=== PATIENT | female | born 1935 | race Caucasian/White ===

== ENCOUNTER 2018-04-22 13:44 | Inpatient (IN) | payer MEDICARE ==
[2018-04-22] MEDS ORDERED: IPRATROPIUM-ALBUTEROL 3 ML NEB INHALATION PRN (21:35)
[2018-04-22] MEDS ORDERED: ONDANSETRON 4 MG/2 ML VIAL IVP PRN (21:36)
[2018-04-22] MEDS ORDERED: HEPARIN SODIUM,PORCINE 5,000 UNIT/ML 1 ML VIAL IV PRN (21:40)
[2018-04-22] MEDS: HEPARIN SOD,PORK IN 0.45% NACL 25,000 UNIT in 0.45% NACL 1 250ML.BAG IV SCH (22:58)
[2018-04-22 23:22] LABS: Anisocytosis Slight; Basophils % (A) 0 %; Eosinophils # (A) 0.1 k/uL (0-0.7); Eosinophils % (A) 1 %; HCT 32.1 % (34.0-46.0); HGB 9.9 gm/dL (11.4-16.0); Hypochromasia Slight; Lymphocytes # (A) 0.6 k/uL (1.0-4.8); Lymphocytes % (A) 6 %; MCH 30.1 pg (25.0-35.0); MCHC 30.9 g/dL (31.0-37.0); MCV 97.1 fL (80.0-100.0); Macrocytosis Slight; Mean Platelet Volume 7.3; Monocytes # (A) 0.5 k/uL (0-1.0); Monocytes % (A) 6 %; Neutrophils # (A) 8.1 k/uL (1.3-7.7); Neutrophils % (A) 86 %; Platelet Count 103 k/uL (150-450); WBC 9.4 k/uL (3.8-10.6)
[2018-04-22 23:33] LABS: Calcium 7.9 mg/dL (8.4-10.2); Potassium 3.9 mmol/L (3.5-5.1)
[2018-04-23 06:06] LABS: Anisocytosis Slight; Basophils % (A) 0 %; Eosinophils # (A) 0.1 k/uL (0-0.7); Eosinophils % (A) 1 %; HCT 31.6 % (34.0-46.0); HGB 9.7 gm/dL (11.4-16.0); Hypochromasia Slight; Lymphocytes # (A) 0.5 k/uL (1.0-4.8); Lymphocytes % (A) 8 %; MCHC 30.7 g/dL (31.0-37.0); MCV 97.6 fL (80.0-100.0); Macrocytosis Slight; Mean Platelet Volume 7.2; Monocytes # (A) 0.4 k/uL (0-1.0); Monocytes % (A) 6 %; Neutrophils # (A) 5.9 k/uL (1.3-7.7); Neutrophils % (A) 84 %; Platelet Count 103 k/uL (150-450); RBC 3.23 m/uL (3.80-5.40); RDW 16.9 % (11.5-15.5)
[2018-04-23 06:27] LABS: Calcium 7.7 mg/dL (8.4-10.2)
--- NOTE | 2018-04-23 06:53 | XR ---
EXAMINATION TYPE: XR chest 2V DATE OF EXAM: 04/23/2018 HISTORY: chf. REFERENCE: NONE. FINDINGS: The lungs are clear. Pleural space are clear. The heart is not enlarged. IMPRESSION: NO ACUTE INTRATHORACIC ABNORMALITY.
[2018-04-23] MEDS: FAMOTIDINE 20 MG TAB PO SCH (10:24)
[2018-04-23] MEDS: predniSONE 10 MG TAB PO SCH (10:24)
[2018-04-23] MEDS: MONTELUKAST 10 MG TAB PO SCH (10:24)
[2018-04-23] MEDS: valACYclovir HCL 1,000 MG TABLET PO SCH ×2 (10:24→21:42)
[2018-04-23] MEDS: PANTOPRAZOLE 40 MG TABLET PO SCH (10:25)
[2018-04-23] MEDS: FUROSEMIDE 10 MG/ML 4 ML VIAL IV SCH ×2 (10:25→21:39)
[2018-04-23] MEDS: PROPRANOLOL 20 MG TAB PO SCH (10:25)
--- NOTE | 2018-04-23 12:53 | P.HPIM ---
History of Present Illness 82-year-old female came in with compensative shortness of breath denied any significant orthopnea proximal nocturnal dyspnea patient is a transfer from [facility] chest x-ray here is within normal limits but the chest x- ray did show bilateral pleural effusion pulmonary edema and syncopal dose of Lasix after which Patient had significant improvementiin pulmonary edema patient has minimally elevated troponin of 0.06 twotroponins are it's at the same level. Cardiology was consulted please refer to the documentation for furtherher patient denied any active chest pain. Patient is presently on IV Lasix and IV heparin . Patient does have history of non-Hodgkin's lymphoma for which she is receiving endotoxin I'll obtain echocardiogram. Review of Systems REVIEW OF SYSTEMS: CONSTITUTIONAL: No fever, no malaise, no fatigue. HEENT: No recent visual problems or hearing problems. Denied any sore throat. CARDIOVASCULAR: No chest pain, orthopnea, PND, no palpitations, no syncope. PULMONARY: no cough, no hemoptysis. GASTROINTESTINAL: No diarrhea, no nausea, no vomiting, no abdominal pain. NEUROLOGICAL: No headaches, no weakness, no numbness. HEMATOLOGICAL: Denies any bleeding or petechiae. GENITOURINARY: Denies any burning micturition, frequency, or urgency. MUSCULOSKELETAL/RHEUMATOLOGICAL: Denies any joint pain, swelling, or any muscle pain. ENDOCRINE: Denies any polyuria or polydipsia. The rest of the 14-point review of systems is negative. Past Medical History Past Medical History: Cancer, GERD/Reflux, Hyperlipidemia, Hypertension, Osteoarthritis (OA) Additional Past Medical History / Comment(s): non-hodgkins lymphoma, basal cell carcinoma L neck, gout, shingles, hiatal hernia, migraines,foreign body L eye, rotatr cuff tear, fx coccyx 1971, stress test 02-04-18 History of Any Multi-Drug Resistant Organisms: None Reported Past Surgical History: Appendectomy, Cholecystectomy, Hysterectomy, Tubal Ligation Additional Past Surgical History / Comment(s): EGD 2014 r/t food items being stuck. multiple eye surgical procedures for cataract and laser. tumor removal eye orbit. Past Anesthesia/Blood Transfusion Reactions: No Reported Reaction Past Psychological History: No Psychological Hx Reported Smoking Status: Never smoker Past Alcohol Use History: None Reported - Past Family History Father History Unknown: Yes Mother History Unknown: Yes Medications and Allergies Home Medications Medication Instructions Recorded Confirmed Type Allopurinol [Zyloprim] 300 mg PO HS 04/22/18 04/22/18 History Famotidine 10 mg PO DAILY 04/22/18 04/22/18 History Montelukast [Singulair] 10 mg PO DAILY 04/22/18 04/22/18 History Omeprazole 20 mg PO DAILY 04/22/18 04/22/18 History Propranolol [Inderal] 60 mg PO DAILY 04/22/18 04/22/18 History predniSONE 10 mg PO DAILY 04/22/18 04/22/18 History valACYclovir HCL [Valacyclovir] 1,000 mg PO Q12HR 04/22/18 04/22/18 History Allergies Allergy/AdvReac Type Severity Reaction Status Date / Time caffeine Allergy PVCS Verified 04/22/18 22:03 codeine Allergy Vomiting Verified 04/22/18 22:03 levofloxacin [From Levaquin] AdvReac Rash/Hives Verified 04/22/18 22:03 morphine AdvReac Vomiting Verified 04/22/18 22:03 tramadol [From Ultram] AdvReac Vomiting Verified 04/22/18 22:03 Physical Exam Vitals: Vital Signs Temp Pulse Resp BP Pulse Ox 04/23/18 11:24 16 04/23/18 08:00 98.3 F 64 16 166/76 94 L 04/23/18 04:00 97.4 F L 61 15 146/65 98 04/23/18 00:00 97.1 F L 63 17 142/63 97 04/22/18 20:00 98.2 F 65 18 147/73 98 Intake and Output 04/22/18 04/23/18 04/23/18 22:59 06:59 14:59 Intake Total 48.920 20 Balance 48.920 20 Intake: IV 10 20 Invasive Line 3 10 20 Intake, IV Titration 38.920 Amount Heparin Sod,Pork in 0.45% 38.920 NaCl 25,000 unit In 0.45 % NaCl 1 250ml.bag @ 12 UNITS/KG/HR 7.83 mls/hr IV .Q24H [facility] Rx#: [id number] Oral 0 Other: Voiding Method Toilet Toilet Incontinent Incontinent # Voids 1 1 Weight 65.317 kg 65.2 kg PHYSICAL EXAMINATION: GENERAL: The patient is alert and oriented x3, not in any acute distress. Well developed, well nourished. HEENT: Pupils are round and equally reacting to light. EOMI. No scleral icterus. No conjunctival pallor. Normocephalic, atraumatic. No pharyngeal erythema. No thyromegaly. CARDIOVASCULAR: S1 and S2 present. No murmurs, rubs, or gallops. PULMONARY: Chest is clear to auscultation, no wheezing or crackles. ABDOMEN: Soft, nontender, nondistended, normoactive bowel sounds. No palpable organomegaly. MUSCULOSKELETAL: No joint swelling or deformity. EXTREMITIES: No cyanosis, clubbing, or pedal edema. NEUROLOGICAL: Gross neurological examination did not reveal any focal deficits. SKIN: No rashes. Results CBC & Chem 7: 04/23/18 05:32 04/23/18 05:32 Labs: Abnormal Lab Results - Last 24 Hours (Table) 04/22/18 04/22/18 04/22/18 Range/Units 23:01 23:01 23:01 RBC 3.30 L (3.80-5.40) m/uL Hgb 9.9 L (11.4-16.0) gm/dL Hct 32.1 L (34.0-46.0) % MCHC 30.9 L (31.0-37.0) g/dL RDW 17.0 H (11.5-15.5) % Plt Count 103 L (150-450) k/uL Neutrophils # 8.1 H (1.3-7.7) k/uL Lymphocytes # 0.6 L (1.0-4.8) k/uL Chloride 109 H (98-107) mmol/L BUN 29 H (7-17) mg/dL Creatinine 1.13 H (0.52-1.04) mg/dL Glucose 107 H (74-99) mg/dL Calcium 7.9 L (8.4-10.2) mg/dL Troponin I 0.060 H* (0.000-0.034) ng/mL 04/23/18 04/23/18 04/23/18 Range/Units 05:32 05:32 05:32 RBC 3.23 L (3.80-5.40) m/uL Hgb 9.7 L (11.4-16.0) gm/dL Hct 31.6 L (34.0-46.0) % MCHC 30.7 L (31.0-37.0) g/dL RDW 16.9 H (11.5-15.5) % Plt Count 103 L (150-450) k/uL Neutrophils # (1.3-7.7) k/uL Lymphocytes # 0.5 L (1.0-4.8) k/uL Chloride 110 H (98-107) mmol/L BUN 26 H (7-17) mg/dL Creatinine (0.52-1.04) mg/dL Glucose (74-99) mg/dL Calcium 7.7 L (8.4-10.2) mg/dL Troponin I 0.051 H* (0.000-0.034) ng/mL 04/23/18 Range/Units 10:19 RBC (3.80-5.40) m/uL Hgb (11.4-16.0) gm/dL Hct (34.0-46.0) % MCHC (31.0-37.0) g/dL RDW (11.5-15.5) % Plt Count (150-450) k/uL Neutrophils # (1.3-7.7) k/uL Lymphocytes # (1.0-4.8) k/uL Chloride (98-107) mmol/L BUN (7-17) mg/dL Creatinine (0.52-1.04) mg/dL Glucose (74-99) mg/dL Calcium (8.4-10.2) mg/dL Troponin I 0.049 H* (0.000-0.034) ng/mL Thrombosis Risk Factor Assmnt - Choose All That Apply Any of the Below Risk Factors Present?: Yes Each Factor Represents 1 point: Swollen legs (current) Other Risk Factors: Yes Each Risk Factor Represents 3 Points: Age 75 years or older Other congenital or acquired thrombophilia - If yes, enter type in comment: No Thrombosis Risk Factor Assessment Total Risk Factor Score: 4 Thrombosis Risk Factor Assessment Level: Moderate Risk Assessment and Plan Plan: -shortness of breath: Possibly related to congestive heart failure ejection fraction is not available at this time patient does have improved shortness of breath pulmonary edema presently resolved because of the Lasix she received before she was transferred here. We'll obtain echocardiogram. 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
--- NOTE | 2018-04-23 13:51 | P.CRDCN ---
History of Present Illness Consult date: 04/23/18 Chief complaint: Shortness of breath History of present illness: This is a pleasant 82-year-old female patient who was transferred from [facility] into [facility] for further evaluation of shortness of breath. The patient does have a past medical history significant for non-Hodgkin lymphoma currently receiving chemotherapy. The non-Hodgkin lymphoma is a recurrence. She was in her usual state of health until yesterday when she woke up complaining of shortness of breath. The patient herself does not recall having any chest pain or chest discomfort, but according to the chart from [facility] the patient did have symptoms of chest discomfort in the emergency room at [facility]. Currently she is chest pain-free. No feeling of heart racing or fluttering, no dizziness or lightheadedness, and no syncope. The patient is not aware of any prior history of coronary artery disease. No diabetes, hypertension, and no dyslipidemia. The EKG from [facility] revealed sinus rhythm. The chest x-ray did not show any acute abnormalities at this point. The patient does have chronic anemia but her hemoglobin is stable. She was admitted to the hospital and was started on heparin IV. Also she was started on Lasix IV for possible CHF. She is feeling overall better. Past Medical History Past Medical History: Cancer, GERD/Reflux, Hyperlipidemia, Hypertension, Osteoarthritis (OA) Additional Past Medical History / Comment(s): non-hodgkins lymphoma, basal cell carcinoma L neck, gout, shingles, hiatal hernia, migraines,foreign body L eye, rotatr cuff tear, fx coccyx 1971, stress test 02-04-18 History of Any Multi-Drug Resistant Organisms: None Reported Past Surgical History: Appendectomy, Cholecystectomy, Hysterectomy, Tubal Ligation Additional Past Surgical History / Comment(s): EGD 2014 r/t food items being stuck. multiple eye surgical procedures for cataract and laser. tumor removal eye orbit. Past Anesthesia/Blood Transfusion Reactions: No Reported Reaction Past Psychological History: No Psychological Hx Reported Smoking Status: Never smoker Past Alcohol Use History: None Reported - Past Family History Father History Unknown: Yes Mother History Unknown: Yes Medications and Allergies Home Medications Medication Instructions Recorded Confirmed Type Allopurinol [Zyloprim] 300 mg PO HS 04/22/18 04/22/18 History Famotidine 10 mg PO DAILY 04/22/18 04/22/18 History Montelukast [Singulair] 10 mg PO DAILY 04/22/18 04/22/18 History Omeprazole 20 mg PO DAILY 04/22/18 04/22/18 History Propranolol [Inderal] 60 mg PO DAILY 04/22/18 04/22/18 History predniSONE 10 mg PO DAILY 04/22/18 04/22/18 History valACYclovir HCL [Valacyclovir] 1,000 mg PO Q12HR 04/22/18 04/22/18 History Allergies Allergy/AdvReac Type Severity Reaction Status Date / Time caffeine Allergy PVCS Verified 04/22/18 22:03 codeine Allergy Vomiting Verified 04/22/18 22:03 levofloxacin [From Levaquin] AdvReac Rash/Hives Verified 04/22/18 22:03 morphine AdvReac Vomiting Verified 04/22/18 22:03 tramadol [From Ultram] AdvReac Vomiting Verified 04/22/18 22:03 Physical Exam Vitals: Vital Signs Temp Pulse Resp BP Pulse Ox 04/23/18 12:00 63 16 145/75 100 04/23/18 11:24 16 04/23/18 08:00 98.3 F 64 16 166/76 94 L 04/23/18 04:00 97.4 F L 61 15 146/65 98 04/23/18 00:00 97.1 F L 63 17 142/63 97 04/22/18 20:00 98.2 F 65 18 147/73 98 Intake and Output 04/22/18 04/23/18 04/23/18 22:59 06:59 14:59 Intake Total 48.920 302.165 Balance 48.920 302.165 Intake: IV 10 20 Invasive Line 3 10 20 Intake, IV Titration 38.920 52.165 Amount Heparin Sod,Pork in 0.45% 38.920 52.165 NaCl 25,000 unit In 0.45 % NaCl 1 250ml.bag @ 12 UNITS/KG/HR 7.83 mls/hr IV .Q24H [facility] Rx#: [id number] Oral 230 Other: Voiding Method Toilet Toilet Incontinent Incontinent # Voids 1 1 Weight 65.317 kg 65.2 kg - Constitutional General appearance: no acute distress - Respiratory Respiratory: bilateral: CTA - Cardiovascular Rhythm: regular Heart sounds: normal: S1, S2 Results 04/23/18 05:32 04/23/18 05:32 Cardiac Enzymes 04/22/18 04/23/18 04/23/18 Range/Units 23:01 05:32 10:19 Troponin I 0.060 H* 0.051 H* 0.049 H* (0.000-0.034) ng/mL Coagulation 04/22/18 04/23/18 04/23/18 Range/Units 23:01 05:32 13:05 APTT 27.9 29.9 93.6 H (22.0-30.0) sec CBC 04/22/18 04/23/18 Range/Units 23:01 05:32 WBC 9.4 7.0 (3.8-10.6) k/uL RBC 3.30 L 3.23 L (3.80-5.40) m/uL Hgb 9.9 L 9.7 L (11.4-16.0) gm/dL Hct 32.1 L 31.6 L (34.0-46.0) % Plt Count 103 L 103 L (150-450) k/uL Comprehensive Metabolic Panel 04/22/18 04/23/18 Range/Units 23:01 05:32 Sodium 137 139 (137-145) mmol/L Potassium 3.9 4.0 (3.5-5.1) mmol/L Chloride 109 H 110 H (98-107) mmol/L Carbon Dioxide 23 23 (22-30) mmol/L BUN 29 H 26 H (7-17) mg/dL Creatinine 1.13 H 1.04 (0.52-1.04) mg/dL Glucose 107 H 97 (74-99) mg/dL Calcium 7.9 L 7.7 L (8.4-10.2) mg/dL Current Medications Generic Name Dose Route Start Last Admin Trade Name Freq PRN Reason Stop Dose Admin Albuterol/Ipratropium 3 ml 04/22/18 21:35 Duoneb 0.5 Mg-3 Mg/3 Ml Soln INHALATION RT-Q6H PRN Shortness Of Breath Allopurinol 300 mg 04/23/18 21:00 Zyloprim PO HS [facility]IL[facility] Famotidine 10 mg 04/23/18 09:00 04/23/18 10:24 Pepcid PO 10 mg DAILY [facility] Administration Furosemide 40 mg 04/23/18 09:00 04/23/18 10:25 Lasix IV 40 mg Q12HR [facility] Administration Heparin Sodium (Porcine) 0 unit 04/22/18 21:40 04/23/18 06:53 Heparin IV 4,000 unit PER PROTOCOL PRN Administration Low PTT Protocol Heparin Sodium/Sodium Chloride 250 mls @ 7.83 mls/hr 04/22/18 21:45 04/23/18 13:41 25,000 unit/ Sodium Chloride IV 9.45 units/kg/hr .Q24H EDIL[facility] 6.17 mls/hr Titration Protocol 12 UNITS/KG/HR Montelukast Sodium 10 mg 04/23/18 09:00 04/23/18 10:24 Singulair PO 10 mg DAILY [facility] Administration Ondansetron HCl 4 mg 04/22/18 21:36 Zofran IVP Q8HR PRN Nausea And Vomiting Pantoprazole Sodium 40 mg 04/23/18 09:00 04/23/18 10:25 Protonix PO 40 mg DAILY EDILIA Administration Prednisone 10 mg 04/23/18 09:00 04/23/18 10:24 PO 10 mg DAILY ED[facility] Administration Propranolol HCl 60 mg 04/23/18 09:00 04/23/18 10:25 Inderal PO 60 mg DAILY ED[facility] Administration Valacyclovir HCl 1,000 mg 04/23/18 09:00 04/23/18 10:24 Valtrex PO 1,000 mg Q12HR [facility] Administration Intake and Output 04/22/18 04/23/18 04/23/18 22:59 06:59 14:59 Intake Total 48.920 302.165 Balance 48.920 302.165 Intake: IV 10 20 Invasive Line 3 10 20 Intake, IV Titration 38.920 52.165 Amount Heparin Sod,Pork in 0.45% 38.920 52.165 NaCl 25,000 unit In 0.45 % NaCl 1 250ml.bag @ 12 UNITS/KG/HR 7.83 mls/hr IV .Q24H [facility] Rx#: [id number] Oral 230 Other: Voiding Method Toilet Toilet Incontinent Incontinent # Voids 1 1 Weight 65.317 kg 65.2 kg 04/23/18 05:32 04/23/18 05:32 Assessment and Plan Assessment: Assessment #1 shortness of breath. #2 congestive heart failure exacerbation of unknown etiology #3 mildly abnormal cardiac enzymes #4 history of non-Hodgkin lymphoma Plan #1 the patient currently is on Lasix IV. #2 continue monitor the kidney function and electrolytes #3 severe underlying coronary artery disease to be ruled out. #4 continue heparin IV at this point #5 add aspirin to the current medical regimen #6 obtain an echocardiogram was Doppler #7 follow-up with the patient. Thank you for allowing us participate in her care
[2018-04-23] MEDS: ALLOPURINOL 300 MG TAB PO SCH (21:39)
[2018-04-23] MEDS: HEPARIN SOD,PORK IN 0.45% NACL 25,000 UNIT in 0.45% NACL 1 250ML.BAG IV SCH (23:08)
[2018-04-24 06:45] LABS: Potassium 3.6 mmol/L (3.5-5.1)
[2018-04-24] MEDS ORDERED: valACYclovir 500 MG TAB PO SCH (09:00)
[2018-04-24] MEDS: PANTOPRAZOLE 40 MG TABLET PO SCH (09:02)
[2018-04-24] MEDS: MONTELUKAST 10 MG TAB PO SCH (09:02)
[2018-04-24] MEDS: predniSONE 10 MG TAB PO SCH (09:02)
[2018-04-24] MEDS: FUROSEMIDE 10 MG/ML 4 ML VIAL IV SCH ×2 (09:02→20:04)
[2018-04-24] MEDS: ASPIRIN 81 MG PO SCH (09:02)
[2018-04-24] MEDS: FAMOTIDINE 20 MG TAB PO SCH (09:05)
[2018-04-24] MEDS: PROPRANOLOL 20 MG TAB PO SCH (09:12)
--- NOTE | 2018-04-24 09:26 | P.PN ---
Subjective Progress Note Date: 04/24/18 Principal diagnosis: Non-ST elevation IA This is a pleasant 82-year-old female patient who was transferred from [facility] into [facility] for further evaluation of shortness of breath. The patient does have a past medical history significant for non-Hodgkin lymphoma currently receiving chemotherapy. The non-Hodgkin lymphoma is a recurrence. She was in her usual state of health until yesterday when she woke up complaining of shortness of breath. The patient herself does not recall having any chest pain or chest discomfort, but according to the chart from [facility] the patient did have symptoms of chest discomfort in the emergency room at [facility]. Currently she is chest pain-free. No feeling of heart racing or fluttering, no dizziness or lightheadedness, and no syncope. The patient is not aware of any prior history of coronary artery disease. No diabetes, hypertension, and no dyslipidemia. The EKG from [facility] revealed sinus rhythm. The chest x-ray did not show any acute abnormalities at this point. The patient does have chronic anemia but her hemoglobin is stable. She was admitted to the hospital and was started on heparin IV. Also she was started on Lasix IV for possible CHF. She is feeling overall better. On follow-up with the patient today, 04/24/2018, she continues denying any chest pain or chest discomfort and she stated that the shortness of breath has improved. An echo was performed and will follow-up with that. She continues to be on aspirin as well as heparin. I discussed with her the option between conservative approach versus invasive approach. She would like to wait until tomorrow till her son would be around. Objective - Vital Signs Vital signs: Vital Signs Temp 98 F 04/24/18 08:00 Pulse 60 04/24/18 08:00 Resp 22 04/24/18 08:00 BP 126/73 04/24/18 08:00 Pulse Ox 98 04/24/18 08:00 Intake & Output 04/23/18 04/24/18 04/24/18 18:59 06:59 18:59 Intake Total 512.165 134.891 240 Output Total 1000 Balance 512.165 -865.109 240 Weight 58.1 kg Intake: IV 30 30 Invasive Line 3 30 30 Intake, IV Titration 52.165 104.891 Amount Heparin Sod,Pork in 0.45% 52.165 104.891 NaCl 25,000 unit In 0.45 % NaCl 1 250ml.bag @ 12 UNITS/KG/HR 7.83 mls/hr IV .Q24H [facility] Rx#: [id number] Oral 430 240 Output: Urine 1000 Other: Voiding Method Toilet Toilet Incontinent Incontinent # Voids 4 - Constitutional General appearance: Present: no acute distress - Respiratory Respiratory: bilateral: CTA - Cardiovascular Rhythm: regular Heart sounds: normal: S1, S2 Abnormal Heart Sounds: Present: systolic murmur - Labs CBC & Chem 7: 04/23/18 05:32 04/24/18 05:36 Labs: Abnormal Lab Results - Last 24 Hours (Table) 04/23/18 04/23/18 04/23/18 Range/Units 10:19 13:05 17:24 APTT 93.6 H (22.0-30.0) sec BUN (7-17) mg/dL Creatinine (0.52-1.04) mg/dL Calcium (8.4-10.2) mg/dL Troponin I 0.049 H* 0.042 H* (0.000-0.034) ng/mL 04/23/18 04/24/18 04/24/18 Range/Units 21:27 05:36 05:36 APTT 47.5 H 40.7 H (22.0-30.0) sec BUN 27 H (7-17) mg/dL Creatinine 1.20 H (0.52-1.04) mg/dL Calcium 8.0 L (8.4-10.2) mg/dL Troponin I (0.000-0.034) ng/mL Assessment and Plan Assessment: Assessment #1 shortness of breath. #2 congestive heart failure exacerbation of unknown etiology #3 mildly abnormal cardiac enzymes #4 history of non-Hodgkin lymphoma Plan #1 continue the current medical regimen #2 continue the aspirin as well as heparin #3 hold metoprolol in view of the bradycardia #4 follow-up on the echocardiogram #5 discussed with the son tomorrow the option between conservative versus invasive approach. Thank you for allowing us participate in her care
--- NOTE | 2018-04-24 10:13 | ECHOF ---
Referral Reason:CHF MEASUREMENTS -------- HEIGHT: 162.6 cm WEIGHT: 58.1 kg BP: 155/85 RVIDd: 2.8 cm (< 3.3) IVSd: 1.0 cm (0.6 - 1.1) LVIDd: 4.4 cm (3.9 - 5.3) LVPWd: 0.9 cm (0.6 - 1.1) IVSs: 1.2 cm LVIDs: 2.8 cm LVPWs: 1.2 cm LA Diam: 3.4 cm (2.7 - 3.8) LAESV Index (A-L): 33.96 ml/m Ao Diam: 3.2 cm (2.0 - 3.7) AV Cusp: 2.4 cm (1.5 - 2.6) MV EXCURSION: 15.510 mm (> 18.000) MV EF SLOPE: 76 mm/s (70 - 150) EPSS: 0.3 cm MV E Osorio: 1.06 m/s MV DecT: 162 ms MV A Osorio: 0.41 m/s MV E/A Ratio: 2.59 AR PHT: 555 ms RAP: 5.00 mmHg RVSP: 47.46 mmHg FINDINGS -------- Sinus rhythm. This was a technically good study. The left ventricular size is normal. Left ventricular wall thickness is normal. Overall left vent ricular systolic function is normal with, an EF between 60 - 65 %. The right ventricle is normal in size. LA is moderately dilated 34-39 ml/m2 The right atrium is normal in size. There is mild aortic valve sclerosis. There is moderate aortic regurgitation. The mitral valve leaflets are mildly thickened. Moderate mitral annular calcification present. Mo derate mitral regurgitation is present. Moderate to severe tricuspid regurgitation present. There is moderate pulmonary hypertension. The right ventricular systolic pressure, as measured by Doppler, is 47.46mmHg. Moderate pulmonic regurgitation. The aortic root size is normal. Normal inferior vena cava with normal inspiratory collapse consistent with estimated right atrial pre ssure of 5 mmHg. There is no pericardial effusion. CONCLUSIONS -------- 1. Sinus rhythm. 2. This was a technically good study. 3. The left ventricular size is normal. 4. Left ventricular wall thickness is normal. 5. Overall left ventricular systolic function is normal with, an EF between 60 - 65 %. 6. The right ventricle is normal in size. 7. LA is moderately dilated 34-39 ml/m2 8. The right atrium is normal in size. 9. There is mild aortic valve sclerosis. 10. There is moderate aortic regurgitation. 11. The mitral valve leaflets are mildly thickened. 12. Moderate mitral annular calcification present. 13. Moderate mitral regurgitation is present. 14. Moderate to severe tricuspid regurgitation present. 15. There is moderate pulmonary hypertension. 16. The right ventricular systolic pressure, as measured by Doppler, is 47.46mmHg. 17. Moderate pulmonic regurgitation. 18. The aortic root size is normal. 19. Normal inferior vena cava with normal inspiratory collapse consistent with estimated right atrial pressure of 5 mmHg. 20. There is no pericardial effusion. VIRTUALIZATION ENGINEER: Clara Castanon RDCS
[2018-04-24] MEDS ORDERED: BISACODYL 5 MG TABLET.DR PO STA (11:56)
--- NOTE | 2018-04-24 12:18 | P.PN ---
Subjective 82-year-old female admitted for new-onset heart failure, pulmonary edema improved pedal edema improved. Patient creatinine has worsened a bit because of which I'm switching her to oral Lasix starting tomorrow morning. Patient does have mildly elevated troponins although there is no chest pain dyspnea because of this new onset congestive heart failure, cardiology wants to leave her on IV heparin possibility of a stress test or cardiac catheterization tomorrow after that probably patient can be discharged. Constitutional: Denied any fatigue denied any fever. Cardio vascular: denied any chest pain, palpitations Gastrointestinal denied any nausea vomiting Pulmonary: Denied any shortness of breath cough Neurologic denied any new focal deficits All inpatient medications were reviewed and appropriate changes in these medications as dictated in the interval history and assessment and plan. Objective - Vital Signs Vital signs: Vital Signs Temp 97.6 F 04/24/18 11:46 Pulse 55 L 04/24/18 11:46 Resp 20 04/24/18 11:46 BP 129/63 04/24/18 11:46 Pulse Ox 98 04/24/18 11:46 Intake & Output 04/23/18 04/24/18 04/24/18 18:59 06:59 18:59 Intake Total 512.165 134.891 240 Output Total 1000 Balance 512.165 -865.109 240 Weight 58.1 kg Intake: IV 30 30 Invasive Line 3 30 30 Intake, IV Titration 52.165 104.891 Amount Heparin Sod,Pork in 0.45% 52.165 104.891 NaCl 25,000 unit In 0.45 % NaCl 1 250ml.bag @ 12 UNITS/KG/HR 7.83 mls/hr IV .Q24H [facility] Rx#: [id number] Oral 430 240 Output: Urine 1000 Other: Voiding Method Toilet Toilet Toilet Incontinent Incontinent Incontinent # Voids 4 - Exam PHYSICAL EXAMINATION: GENERAL: The patient is alert and oriented x3, not in any acute distress. Well developed, well nourished. HEENT: Pupils are round and equally reacting to light. EOMI. No scleral icterus. No conjunctival pallor. Normocephalic, atraumatic. No pharyngeal erythema. No thyromegaly. CARDIOVASCULAR: S1 and S2 present. No murmurs, rubs, or gallops. PULMONARY: Chest is clear to auscultation, no wheezing or crackles. ABDOMEN: Soft, nontender, nondistended, normoactive bowel sounds. No palpable organomegaly. MUSCULOSKELETAL: No joint swelling or deformity. EXTREMITIES: No cyanosis, clubbing, or pedal edema. NEUROLOGICAL: Gross neurological examination did not reveal any focal deficits. SKIN: No rashes. - Labs CBC & Chem 7: 04/23/18 05:32 04/24/18 05:36 Labs: Abnormal Lab Results - Last 24 Hours (Table) 04/23/18 04/23/18 04/23/18 Range/Units 13:05 17:24 21:27 APTT 93.6 H 47.5 H (22.0-30.0) sec BUN (7-17) mg/dL Creatinine (0.52-1.04) mg/dL Calcium (8.4-10.2) mg/dL Troponin I 0.042 H* (0.000-0.034) ng/mL 04/24/18 04/24/18 Range/Units 05:36 05:36 APTT 40.7 H (22.0-30.0) sec BUN 27 H (7-17) mg/dL Creatinine 1.20 H (0.52-1.04) mg/dL Calcium 8.0 L (8.4-10.2) mg/dL Troponin I (0.000-0.034) ng/mL Assessment and Plan Plan: -shortness of breath: Possibly related to congestive heart failure chronic diastolic dysfunction with acute exacerbation patient see if his 60-65% presently not in heart failure exacerbation because of worsening creatinine patient was switched to oral Lasix starting tomorrow. -elevated troponins: Non-ST elevation myocardial infarction cannot be ruled out patient will be continued on heparin, further management as mentioned above -Acute renal failure related ischemia mild secondary to Lasix -non-Hodgkin's lymphoma: Patient is on Rituxan as an outpatient patient is presently on prednisone which will be continued -gastroesophageal reflux disease -Hypertension -Hyperlipidemia
[2018-04-24 14:22] VITALS: BMI 21.9
[2018-04-24] MEDS: ALLOPURINOL 300 MG TAB PO SCH (20:16)
[2018-04-24] MEDS: HEPARIN SOD,PORK IN 0.45% NACL 25,000 UNIT in 0.45% NACL 1 250ML.BAG IV SCH (22:23)
[2018-04-25 06:04] LABS: Calcium 7.9 mg/dL (8.4-10.2); Potassium 3.7 mmol/L (3.5-5.1)
--- NOTE | 2018-04-25 08:15 | P.PN ---
Subjective Progress Note Date: 04/25/18 Principal diagnosis: Non-ST elevation NE This is a pleasant 82-year-old female patient who was transferred from [facility] into [facility] for further evaluation of shortness of breath. The patient does have a past medical history significant for non-Hodgkin lymphoma currently receiving chemotherapy. The non-Hodgkin lymphoma is a recurrence. She was in her usual state of health until yesterday when she woke up complaining of shortness of breath. The patient herself does not recall having any chest pain or chest discomfort, but according to the chart from [facility] the patient did have symptoms of chest discomfort in the emergency room at [facility]. Currently she is chest pain-free. No feeling of heart racing or fluttering, no dizziness or lightheadedness, and no syncope. The patient is not aware of any prior history of coronary artery disease. No diabetes, hypertension, and no dyslipidemia. The EKG from [facility] revealed sinus rhythm. The chest x-ray did not show any acute abnormalities at this point. The patient does have chronic anemia but her hemoglobin is stable. She was admitted to the hospital and was started on heparin IV. Also she was started on Lasix IV for possible CHF. She is feeling overall better. On follow-up with the patient today, 04/25/2018, she continues denying any chest pain or chest discomfort and she stated that the shortness of breath has improved. The echocardiogram revealed normal LV function was moderate MR, moderate TR, moderate pulmonary hypertension. I will DC the heparin. Continue aspirin. Start the patient on metoprolol with a small dose and also start the patient on statin. Objective - Vital Signs Vital signs: Vital Signs Temp 97.4 F L 04/25/18 00:00 Pulse 77 04/25/18 00:00 Resp 20 04/25/18 04:00 BP 154/73 04/25/18 00:00 Pulse Ox 98 04/25/18 00:00 Intake & Output 04/24/18 04/25/18 04/25/18 18:59 06:59 18:59 Intake Total 720 657.288 Balance 720 657.288 Weight 58.1 kg 58 kg Intake: Intake, IV Titration 177.288 Amount Heparin Sod,Pork in 0.45% 177.288 NaCl 25,000 unit In 0.45 % NaCl 1 250ml.bag @ 12 UNITS/KG/HR 7.83 mls/hr IV .Q24H [facility] Rx#: [id number] Oral 720 480 Other: Voiding Method Toilet Toilet Incontinent # Voids 3 3 # Bowel Movements 1 - Constitutional General appearance: Present: no acute distress - Respiratory Respiratory: bilateral: CTA - Cardiovascular Rhythm: regular Heart sounds: normal: S1, S2 - Labs CBC & Chem 7: 04/23/18 05:32 04/25/18 05:06 Labs: Abnormal Lab Results - Last 24 Hours (Table) 04/25/18 04/25/18 Range/Units 05:06 05:06 APTT 50.5 H (22.0-30.0) sec Chloride 108 H (98-107) mmol/L BUN 29 H (7-17) mg/dL Creatinine 1.08 H (0.52-1.04) mg/dL Calcium 7.9 L (8.4-10.2) mg/dL Assessment and Plan Assessment: Assessment #1 shortness of breath. #2 congestive heart failure exacerbation of unknown etiology #3 mildly abnormal cardiac enzymes #4 history of non-Hodgkin lymphoma Plan #1 continue the current medical regimen #2 continue the aspirin as well as heparin #3 DC heparin #4 start small dose of metoprolol #5 start statin Thank you for allowing us participate in her care
[2018-04-25 08:24] VITALS: TEMP 98.8
[2018-04-25] MEDS: predniSONE 10 MG TAB PO SCH (08:42)
[2018-04-25] MEDS: ASPIRIN 81 MG PO SCH (08:42)
[2018-04-25] MEDS: PANTOPRAZOLE 40 MG TABLET PO SCH (08:42)
[2018-04-25] MEDS: FAMOTIDINE 20 MG TAB PO SCH (08:42)
[2018-04-25] MEDS: MONTELUKAST 10 MG TAB PO SCH (08:42)
[2018-04-25] MEDS ORDERED: FUROSEMIDE 40 MG TAB PO SCH (09:00)
[2018-04-25] MEDS ORDERED: METOPROLOL TARTRATE 12.5 MG TAB PO SCH (09:00)
[2018-04-25 12:00] VITALS: BP 132/75; PULSE 77; RESP 16
--- NOTE | 2018-04-25 19:16 | P.DS ---
Providers Date of admission: 04/22/18 16:19 Attending physician: Patria Young Consults: 04/22/18 22:00 Consult Physician Routine Consulting Provider: Alvin Yoder Consult Reason/Comments: elevated trop Do you want consulting provider notified?: Yes Primary care physician: Stated None Hospital Course: 82-year-old female admitted for new-onset heart failure, pulmonary edema improved pedal edema improved. Patient creatinine has worsened a bit because of which I'm switching her to oral Lasix starting tomorrow morning. Patient does have mildly elevated troponins although there is no chest pain dyspnea because of this new onset congestive heart failure, cardiology wants to leave her on IV heparin possibility of a stress test or cardiac catheterization tomorrow after that probably patient can be discharged. 04/25/2018 Patient appears to have chronic diastolic dysfunction with acute exacerbation. Patient will alert her troponins are secondary to heart failure patient will undergo further evaluation as an outpatient for coronary artery disease. Patient will be discharged today PHYSICAL EXAMINATION: GENERAL: The patient is alert and oriented x3, not in any acute distress. Well developed, well nourished. HEENT: Pupils are round and equally reacting to light. EOMI. No scleral icterus. No conjunctival pallor. Normocephalic, atraumatic. No pharyngeal erythema. No thyromegaly. CARDIOVASCULAR: S1 and S2 present. No murmurs, rubs, or gallops. PULMONARY: Chest is clear to auscultation, no wheezing or crackles. ABDOMEN: Soft, nontender, nondistended, normoactive bowel sounds. No palpable organomegaly. MUSCULOSKELETAL: No joint swelling or deformity. EXTREMITIES: No cyanosis, clubbing, or pedal edema. NEUROLOGICAL: Gross neurological examination did not reveal any focal deficits. SKIN: No rashes. Assessment and Plan Plan: -shortness of breath: Possibly related to congestive heart failure chronic diastolic dysfunction with acute exacerbation patient see if his 60-65% presently not in heart failure exacerbation -elevated troponins: Probably secondary to heart failure rather than acute microinfarction -Acute renal failure related ischemia mild secondary to Lasix -non-Hodgkin's lymphoma: Patient is on Rituxan as an outpatient patient is presently on prednisone which will be continued -gastroesophageal reflux disease -Hypertension -Hyperlipidemia Patient Condition at Discharge: Stable Plan - Discharge Summary Discharge Rx Participant: No New Discharge Prescriptions: New Aspirin 81 mg PO DAILY #30 chew Atorvastatin [Lipitor] 40 mg PO HS #30 tab Furosemide [Lasix] 40 mg PO DAILY #30 tab Metoprolol Tartrate [Lopressor] 12.5 mg PO BID #60 tab No Action Omeprazole 20 mg PO DAILY valACYclovir HCL [Valacyclovir] 1,000 mg PO Q12HR Montelukast [Singulair] 10 mg PO DAILY Allopurinol [Zyloprim] 300 mg PO HS predniSONE 10 mg PO DAILY Famotidine 10 mg PO DAILY Discharge Medication List Allopurinol [Zyloprim] 300 mg PO HS 04/22/18 [History] Famotidine 10 mg PO DAILY 04/22/18 [History] Montelukast [Singulair] 10 mg PO DAILY 04/22/18 [History] Omeprazole 20 mg PO DAILY 04/22/18 [History] predniSONE 10 mg PO DAILY 04/22/18 [History] valACYclovir HCL [Valacyclovir] 1,000 mg PO Q12HR 04/22/18 [History] Aspirin 81 mg PO DAILY #30 chew 04/25/18 [Rx] Atorvastatin [Lipitor] 40 mg PO HS #30 tab 04/25/18 [Rx] Furosemide [Lasix] 40 mg PO DAILY #30 tab 04/25/18 [Rx] Metoprolol Tartrate [Lopressor] 12.5 mg PO BID #60 tab 04/25/18 [Rx] Follow up Appointment(s)/Referral(s): Alvin Yoder MD [STAFF PHYSICIAN] - 05/04/18 4:30 pm () [facility], [NON-STAFF] - Moise Dill MD [REFERRING] - 05/02/18 11:00 am (Tuesday ) Patient Instructions/Handouts: Heart Failure (DC) Discharge Disposition: HOME WITH HOME HEALTH SERVICES
[2018-04-25] MEDS ORDERED: ATORVASTATIN 40 MG TAB PO SCH (21:00)
--- NOTE | 2018-04-26 14:31 | CDI ---
Documentation Clarification Form Date: 04/26/18 From: Desi Ottoniel Nohelia Brennan, [employer] Hours-8:30 am & 5 pm M-F Admit Date: 04/22/2018 4:19:00 PM Patient Name: Lila Green Visit Number: [id number] Discharge Date: 04/25/2018 3:45:00 PM ATTENTION: The Clinical Documentation Specialists (CDI) and [facility] Coding Staff appreciate your assistance in clarifying documentation. Please respond to the clarification below the line at the bottom and electronically sign. The CDI & [facility] Coding staff will review the response and follow-up if needed. Please note: Queries are made part of the Legal Health Record. If you have any questions, please contact the author of this message via ITS. Dr. Jose A Hoffman Myocardial infarction/ microinfarction is documented in the: H&P, Consult, PNs, DS. Patient History/Risk Factors: HTN, AC on Chr Diastolic CHF, MR w TR regu, Pulm HTN Troponin: 0.060, 0.051, 0.049, 0.042 [facility] EKG Results: sinus rhythm Treatment: IV Heparin, IV Lasix Consult: Cardiology In order to capture the severity of condition and necessary documentation specificity, please clarify: Type of Infarction: NSTEMI Ruled In NSTEMI Ruled Out Unable to determine Other Condition, please specify Already dictated in my note, no NSTEMI MTDD
== END 2018-04-25 15:45 | disposition home health service (06) | DRG 292 ==
LOC: EC 13:44 → 3SCARD 16:19
PROVIDERS: ADMIT Hospitalist; ATTEND Hospitalist
DX: I11.0 Hypertensive heart disease with heart failure (principal); C85.90 Non-Hodgkin lymphoma, unspecified, unspecified site; N17.9 Acute kidney failure, unspecified; I50.33 Acute on chronic diastolic (congestive) heart failure; I27.20 Pulmonary hypertension, unspecified; I08.1 Rheumatic disorders of both mitral and tricuspid valves; D64.9 Anemia, unspecified; K21.9 Gastro-esophageal reflux disease without esophagitis; E78.5 Hyperlipidemia, unspecified; M10.9 Gout, unspecified; K44.9 Diaphragmatic hernia without obstruction or gangrene; G43.909 Migraine, unspecified, not intractable, without status migrainosus; I25.10 Atherosclerotic heart disease of native coronary artery without angina pectoris; R32 Unspecified urinary incontinence; M19.90 Unspecified osteoarthritis, unspecified site; T50.1X5A Adverse effect of loop [high-ceiling] diuretics, initial encounter; Z79.899 Other long term (current) drug therapy; Z79.52 Long term (current) use of systemic steroids; Z90.49 Acquired absence of other specified parts of digestive tract; Z90.710 Acquired absence of both cervix and uterus; Z92.21 Personal history of antineoplastic chemotherapy; Z85.828 Personal history of other malignant neoplasm of skin; Z86.19 Personal history of other infectious and parasitic diseases; Z87.81 Personal history of (healed) traumatic fracture; Z98.51 Tubal ligation status; Z98.49 Cataract extraction status, unspecified eye; Z88.1 Allergy status to other antibiotic agents; Z88.5 Allergy status to narcotic agent; Z91.02 Food additives allergy status
CPT/HCPCS: 71046; 80048; 84484; 85025; 85730; 93306; 99285

== ENCOUNTER → 2018-11-18 | Outpatient (CLI) | payer MEDICARE ==
--- NOTE | 2018-11-20 10:57 | PE ---
EXAMINATION TYPE: PET CT fusion skull to thigh DATE OF EXAM: 11/18/2018 COMPARISON: None Prior PET/CT: None HISTORY: Lymphoma of eye and stomach TECHNIQUE: Following the intravenous administration of 11.222 mCi of F-18 FDG, whole body images are performed from the skull base to the midthigh. Images are reviewed on the computer in the coronal, axial, and sagittal planes. Reconstructed rotating images are created on independent workstation and reviewed on the computer. A localization and attenuation correction CT is performed in conjunction with the PET scan. DLP: 270.55 mGycm SCAN: Reported is subsequent, images are unavailable for comparison. Blood glucose: 101 mg/dL Average Mediastinum SUV: Average Liver SUV: FINDINGS: Head: There is some focal radiotracer accumulation within the posterior left orbit with an SUV value of 2.7. PET image 26. Additional uptake is present bilaterally slightly more inferior measuring 4.5 o n the left than the medial rectus muscle region and on the right within the mid optic nerve region wi th an SUV value of 4.7. This could correlate with the patient's reported lymphoma the eye. NECK: There is a focus of radiotracer accumulation in the left supraclavicular region with an SUV va lue of 5.7. PET image 68. An additional focus of radiotracer accumulation is in the left supraclavicu lar region below the thoracic inlet with an SUV value of 8.11. PET image 75. There is a superior medi astinal focus of radiotracer accumulation at the level of the great vessels with an SUV value of 5.07 , PET image 81. THORAX: There is a focus of radiotracer accumulation within the left suprahilar region at the level o f the aortopulmonic window with an SUV value of 4.38, PET image 92 ABDOMEN: No abnormal uptake PELVIS: There is focal marked at uptake within the proximal sigmoid colon, PET image 211. This has an SUV value of 9.68 more focal in typical GI uptake. Direct visualization is recommended. Neoplasm is not excluded. OSSEOUS STRUCTURES: No abnormal uptake LOCALIZATION CT: Enlarged supraclavicular adenopathy corresponding to the uptake is evident localizat ion CT examinations. Additional shotty adenopathy is within the mediastinum. The ascending thoracic a larry at the level the main pulmonary artery is 3.8 cm the main pulmonary artery the bifurcation is 3. 0 cm. Mild coronary artery calcification is present. COMPARISON: None available IMPRESSION: 1. Increased uptake within left supraclavicular adenopathy as well as mediastinal adenopathy within t he superior mediastinum and pretracheal space to the level of the aortopulmonic window palpable with the patient's lymphoma. 2. There is abnormal uptake within the posterior orbit greater on the left which could correlate with the patient's reported eye lymphoma. 3. There is a focal area of uptake within the anterior proximal sigmoid colon more intense and focal in typically identified for GI uptake. Neoplasm is not excluded and additional evaluation of this are a is recommended.
== END | disposition home or self-care (01) ==
LOC: RADPETMAIN 09:46
PROVIDERS: ATTEND Internal Medicine Hematology & Oncology
DX: R59.0 Localized enlarged lymph nodes (principal); R59.9 Enlarged lymph nodes, unspecified; R93.89 Abnormal findings on diagnostic imaging of other specified body structures; C85.81 Other specified types of non-Hodgkin lymphoma, lymph nodes of head, face, and neck
CPT/HCPCS: 78815; A9552

== ENCOUNTER 2019-02-21 15:49 | Inpatient (IN) | payer MEDICARE ==
[2019-02-21] MEDS ORDERED: NALOXONE 0.4 MG/ML 1 ML VIAL IV PRN (16:51)
--- NOTE | 2019-02-21 16:51 | ED ---
Dizziness HPI - General Chief Complaint: Syncope Stated Complaint: Syncope Time Seen by Provider: 02/21/19 16:20 Source: patient, family, EMS Mode of arrival: EMS Limitations: no limitations - History of Present Illness Initial Comments: The patient is an 83-year-old female with past medical history of non-Hodgkin's lymphoma, CHF who presents emergency Department as a transfer from [facility]. She was admitted to their ED observation and service overnight. Yesterday she went to a [employer] dinner for work. She states that she ambulated to the bathroom. When she sat down on the toilet she had a large, watery bowel movement. She felt very weak. She was taking longer than expected and her daughter went to check on her in the bathroom. She found her very pale on the toilet. She then had a syncopal episode where the daughter lowered her to the ground. She was out for approximately 1 minute. She was then transported to [facility] where a thorough workup was done. She had laboratory studies, chest x-ray and a CT of her brain performed. The patient had a urinary tract infection and started her on antibiotics. They did observe her overnight. During the day it was, the patient was having episodes of tachycardia. EKGs captured at that time demonstrated that she had a possible a flutter with a 2-[address] Lim who is the patient's spring winder who recommended that the patient be transported to her facility. She does arrive and feels asymptomatic at this time. No history of previous ar rhythmia. Denies any chest pain or shortness of breath. No nausea or vomiting. Denies any fevers or chills. No cough or hemoptysis. The patient arrives on heparin. No contraindications to heparin use. Denies any headaches or visual changes. There are no other alleviating, precipitating or modifying factors - Related Data Home Medications Medication Instructions Recorded Confirmed Allopurinol [Zyloprim] 300 mg PO HS 04/22/18 02/21/19 Montelukast [Singulair] 10 mg PO HS 04/22/18 02/21/19 Omeprazole 20 mg PO DAILY 04/22/18 02/21/19 Acyclovir [Zovirax] 400 mg PO 5XD 02/21/19 02/21/19 Albuterol Nebulized [Ventolin 2.5 mg INHALATION RT-QID PRN 02/21/19 02/21/19 Nebulized] Ascorbic Acid [Vitamin C] 500 mg PO BID 02/21/19 02/21/19 Budesonide [Pulmicort] 0.5 mg INHALATION RT-BID PRN 02/21/19 02/21/19 Clobetasol 0.05% Solution 1 applic TOPICAL DAILY 02/21/19 02/21/19 Cranberry Fruit Extract [Cranberry] 500 mg PO HS 02/21/19 02/21/19 Dronabinol [Marinol] 2.5 mg PO AC-BID PRN 02/21/19 02/21/19 Famotidine [Pepcid] 20 mg PO DAILY 02/21/19 02/21/19 Fluconazole [Diflucan] 150 mg PO DAILY PRN 02/21/19 02/21/19 Fluocinolone/Shower Cap 1 applic TOPICAL HS 02/21/19 02/21/19 [Mdnjt-Ucmxojt-Ss Scalp Oil] Furosemide [Lasix] 20 mg PO DAILY 02/21/19 02/21/19 Ibrutinib [Imbruvica] 140 mg PO HS@2200 02/21/19 02/21/19 L.acidoph,Paracasei, B.lactis 1 cap PO DAILY 02/21/19 02/21/19 [Probiotic] Nystatin 100,000 Unit/ml Susp 500,000 units PO QID PRN 02/21/19 02/21/19 [Mycostatin Oral Susp] Ondansetron [Zofran ODT] 4 mg PO Q8HR PRN 02/21/19 02/21/19 Potassium Chloride ER [K-Dur 10] 20 meq PO HS 02/21/19 02/21/19 Propranolol HCl [Inderal LA] 60 mg PO HS 02/21/19 02/21/19 predniSONE See Taper PO DAILY 02/21/19 02/21/19 Previous Rx's Medication Instructions Recorded Apixaban [Eliquis] 2.5 mg PO BID #60 tablet 02/25/19 Cefuroxime Axetil [Ceftin] 500 mg PO BID 3 Days #6 tab 02/25/19 Allergies Allergy/AdvReac Type Severity Reaction Status Date / Time caffeine AdvReac PVCS Verified 02/21/19 17:20 codeine AdvReac Nausea & Verified 02/21/19 17:20 Vomiting levofloxacin [From Levaquin] AdvReac Nausea & Verified 02/21/19 17:20 Vomiting morphine AdvReac Nausea & Verified 02/21/19 17:20 Vomiting tramadol [From Ultram] AdvReac Nausea & Verified 02/21/19 17:20 Vomiting Review of Systems ROS Statement: Those systems with pertinent positive or pertinent negative responses have been documented in the HPI. ROS Other: All systems not noted in ROS Statement are negative. Past Medical History Past Medical History: Cancer, GERD/Reflux, Hyperlipidemia, Hypertension, Osteoarthritis (OA) Additional Past Medical History / Comment(s): non-hodgkins lymphoma, basal cell carcinoma L neck, gout, shingles, hiatal hernia, migraines,foreign body L eye, rotatr cuff tear, fx coccyx 1971, stress test 02-04-18 History of Any Multi-Drug Resistant Organisms: None Reported Past Surgical History: Appendectomy, Cholecystectomy, Hysterectomy, Tubal Ligation Additional Past Surgical History / Comment(s): EGD 2014 r/t food items being stuck. multiple eye surgical procedures for cataract and laser. tumor removal eye orbit. Past Anesthesia/Blood Transfusion Reactions: No Reported Reaction Past Psychological History: No Psychological Hx Reported Smoking Status: Never smoker Past Alcohol Use History: None Reported - Past Family History Father History Unknown: Yes Mother History Unknown: Yes General Exam Limitations: no limitations General appearance: alert, in no apparent distress Head exam: Present: atraumatic, normocephalic, normal inspection Eye exam: Present: normal appearance, PERRL, EOMI. Absent: scleral icterus, conjunctival injection, periorbital swelling ENT exam: Present: normal exam, mucous membranes moist Neck exam: Present: normal inspection. Absent: tenderness, meningismus, lymphadenopathy Respiratory exam: Present: normal lung sounds bilaterally. Absent: respiratory distress, wheezes, rales, rhonchi, stridor Cardiovascular Exam: Present: regular rate, irregular rhythm, normal heart sounds. Absent: systolic murmur, diastolic murmur, rubs, gallop, clicks GI/Abdominal exam: Present: soft, normal bowel sounds. Absent: distended, tenderness, guarding, rebound, rigid Extremities exam: Present: normal inspection, full ROM, normal capillary refill. Absent: tenderness, pedal edema, joint swelling, calf tenderness Back exam: Present: normal inspection Neurological exam: Present: alert, oriented X3, CN II-XII intact Psychiatric exam: Present: normal affect, normal mood Skin exam: Present: warm, dry, intact, normal color. Absent: rash Course Vital Signs 02/21/19 02/21/19 02/21/19 16:16 16:30 17:00 Temperature 98 F Pulse Rate 86 70 74 Respiratory 18 16 16 Rate Blood Pressure 121/59 121/59 114/68 O2 Sat by Pulse 97 98 98 Oximetry 02/21/19 02/21/19 17:30 18:00 Temperature Pulse Rate 69 80 Respiratory 16 15 Rate Blood Pressure 100/55 102/73 O2 Sat by Pulse 97 98 Oximetry EKG Findings - EKG Comments: EKG Findings:: EKG demonstrates afib with a rate of 71. QRS 94. QTC 436. No acute ST segment elevations or depressions concerning for ischemic changes Medical Decision Making - Medical Decision Making Upon arrival the patient is placed into room 4. History and physical exam is performed. The patient's record shows a CT of the patient's brain which demonstrates cerebral atrophy, chronic small vessel ischemic disease. Chest x- ray demonstrates pleural thickening versus small left effusion. Review of the patient's EKGs from [facility] demonstrates episodes of tachycardia with possible A. fibflutter. He appears to be a 2-1 block. The patient has a 12-lead EKG performed here which demonstrates atrial fibrillation with a rate of 71. I did repeat laboratory studies. White blood cell count is low at 3. Platelets are 134. Creatinine 1.5 which is at the patient's baseline. Troponin is negative. I called and discussed the case with Dr. Young who accepted admission for the patient. I will place Dr. Yoder on consult. I ordered Rocephin for the patient's urinary tract infection and placed the patient back on a heparin drip. She remained in stable condition was transported to the floor - Lab Data Result diagrams: 02/25/19 08:57 02/24/19 05:56 Lab Results 02/21/19 02/21/19 02/21/19 Range/Units 16:50 16:50 16:50 WBC 3.0 L (3.8-10.6) k/uL RBC 3.74 L (3.80-5.40) m/uL Hgb 11.3 L (11.4-16.0) gm/dL Hct 35.8 (34.0-46.0) % MCV 95.6 (80.0-100.0) fL MCH 30.3 (25.0-35.0) pg MCHC 31.7 (31.0-37.0) g/dL RDW 16.6 H (11.5-15.5) % Plt Count 134 L (150-450) k/uL Neutrophils % 85 % Lymphocytes % 10 % Monocytes % 2 % Eosinophils % 0 % Basophils % 0 % Neutrophils # 2.5 (1.3-7.7) k/uL Lymphocytes # 0.3 L (1.0-4.8) k/uL Monocytes # 0.1 (0-1.0) k/uL Eosinophils # 0.0 (0-0.7) k/uL Basophils # 0.0 (0-0.2) k/uL Hypochromasia Slight Anisocytosis Slight Sodium 139 (137-145) mmol/L Potassium 3.7 (3.5-5.1) mmol/L Chloride 109 H (98-107) mmol/L Carbon Dioxide 20 L (22-30) mmol/L Anion Gap 10 mmol/L BUN 24 H (7-17) mg/dL Creatinine 1.56 H (0.52-1.04) mg/dL Est GFR (CKD-EPI)AfAm 36 (>60 ml/min/1.73 sqM) Est GFR (CKD-EPI)NonAf 31 (>60 ml/min/1.73 sqM) Glucose 175 H (74-99) mg/dL Calcium 9.0 (8.4-10.2) mg/dL Total Bilirubin 0.4 (0.2-1.3) mg/dL AST 11 L (14-36) U/L ALT 12 (9-52) U/L Alkaline Phosphatase 75 (38-126) U/L Troponin I <0.012 (0.000-0.034) ng/mL Total Protein 5.8 L (6.3-8.2) g/dL Albumin 3.2 L (3.5-5.0) g/dL Disposition Clinical Impression: Vasovagal syncope, Acute UTI, Atrial flutter Disposition: ADMITTED IP TO THIS HOSP Condition: Stable Is patient prescribed a controlled substance at d/c from ED?: No Decision to Admit Reason: Admit from EC Decision Date: 02/21/19 Decision Time: 16:51
[2019-02-21] MEDS ORDERED: cefTRIAXone IN SWFI 1,000 MG/10 ML SYRINGE IVP SCH (17:00)
[2019-02-21] MEDS ORDERED: HEPARIN SODIUM,PORCINE 5,000 UNIT/ML 1 ML VIAL IV PRN (17:12)
[2019-02-21 17:19] LABS: Albumin 3.2 g/dL (3.5-5.0); Potassium 3.7 mmol/L (3.5-5.1); Total Bilirubin 0.4 mg/dL (0.2-1.3); Total Protein 5.8 g/dL (6.3-8.2)
[2019-02-21 17:24] LABS: Anisocytosis Slight; Basophils % (A) 0 %; Eosinophils % (A) 0 %; HCT 35.8 % (34.0-46.0); HGB 11.3 gm/dL (11.4-16.0); Hypochromasia Slight; Lymphocytes # (A) 0.3 k/uL (1.0-4.8); Lymphocytes % (A) 10 %; MCH 30.3 pg (25.0-35.0); MCHC 31.7 g/dL (31.0-37.0); MCV 95.6 fL (80.0-100.0); Monocytes # (A) 0.1 k/uL (0-1.0); Monocytes % (A) 2 %; Neutrophils # (A) 2.5 k/uL (1.3-7.7); Neutrophils % (A) 85 %; Platelet Count 134 k/uL (150-450); RBC 3.74 m/uL (3.80-5.40); RDW 16.6 % (11.5-15.5)
[2019-02-21 18:45] LABS: Partial Thromboplastin Time 65.7 sec (22.0-30.0); Prothrombin Time 10.9 sec (9.0-12.0)
[2019-02-21] MEDS ORDERED: BUDESONIDE 0.5 MG/2 ML NEBU INHALATION PRN (19:10)
[2019-02-21] MEDS ORDERED: ALBUTEROL NEBULIZED 2.5 MG/3 ML INHALATION PRN (19:10)
[2019-02-21] MEDS ORDERED: NYSTATIN 100,000 UNIT/ML SUSP 500,000 UNIT/5 ML CUP PO PRN (19:10)
[2019-02-21] MEDS ORDERED: DRONABINOL 2.5 MG CAP PO PRN (19:10)
[2019-02-21] MEDS ORDERED: FLUCONAZOLE 150 MG TAB PO PRN (19:10)
[2019-02-21] MEDS ORDERED: ALPRAZolam 0.25 MG TAB PO PRN (19:13)
[2019-02-21] MEDS: HEPARIN SOD,PORK IN 0.45% NACL 25,000 UNIT in 0.45% NACL 1 250ML.BAG IV SCH (20:18)
[2019-02-21] MEDS: POTASSIUM CHLORIDE ER 20 MEQ TAB.ER PO SCH (20:32)
[2019-02-21] MEDS: ALLOPURINOL 300 MG TAB PO SCH (20:32)
[2019-02-21] MEDS: MONTELUKAST 10 MG TAB PO SCH (20:32)
[2019-02-21] MEDS: ASCORBIC ACID 500 MG TAB PO SCH (20:32)
[2019-02-21] MEDS: FLUOCINOLONE TOPICAL SCH (20:36)
[2019-02-21] MEDS: ACYCLOVIR 200 MG CAP PO SCH ×2 (20:36→23:28)
[2019-02-21] MEDS: PROPRANOLOL LA 60 MG CAP.SA.24H PO SCH (20:36)
--- NOTE | 2019-02-21 20:44 | HP ---
HISTORY AND PHYSICAL DATE OF SERVICE: 02/21/2019 CHIEF COMPLAINT: Syncope. HISTORY OF PRESENT ILLNESS: This 83-year-old woman with a past medical history of multiple medical problems, including history of GERD, history of hypertension, hyperlipidemia, history of DJD, history of non-Hodgkin's lymphoma, history of gout, shingles, history of appendectomy and cholecystectomy, being followed by Dr. Moise Dill in the outpatient setting, was also seeing Dr. Yoder. Today the patient went to the bathroom and the patient had a syncopal episode which was witnessed by her daughter, who initially tried to help her out, but the patient's eyes rolled and the patient had a syncopal episode right in front of her daughter. The patient took so much time inside the bathroom, according to her. The patient was admitted to [facility], observed in the ED. She was subsequently thought to have some UTI and started on antibiotics. The patient was having episodes of tachycardia. EKG showed possible atrial flutter with a 2:[address] Yoder was contacted. The patient was transferred to [facility] Emergency Room and admitted for further evaluation and treatment. There is no history of any fever, rigor or chills. No history of headache, loss of consciousness, seizures at this time. PAST MEDICAL HISTORY: 1. History of GERD. 2. Hypertension. 3. Hyperlipidemia. 4. Non-Hodgkin lymphoma. 5. History of appendectomy. 6. Cholecystectomy. 7. Hysterectomy. HOME MEDICATIONS: Home medications prior to admission include: 1. Prednisone daily. 2. Inderal LA 60 mg p.o. at bedtime. 3. K-Dur 20 mEq p.o. at bedtime. 4. Zofran ODT 4 mg q.8 p.r.n. 5. Omeprazole 20 mg p.o. daily. 6. Mycostatin 500,000 p.o. q.i.d. p.r.n. 7. Singulair 10 mg at bedtime. 8. Probiotic 1 capsule daily. 9. Ibrutinib 140 mg p.o. at bedtime. 10.Lasix 20 mg p.o. daily. 11.[place]oothe 1 application at bedtime. 12.Diflucan 150 mg daily p.r.n. 13.Pepcid 20 mg p.o. daily. 14.Marinol 2.5 mg before meals b.i.d. p.r.n. 15.Cranberry 500 mg at bedtime. 16.Clobetasol 1 application daily. 17.Pulmicort 0.5 mg b.i.d. p.r.n. 18.Vitamin C 500 mg p.o. b.i.d. 19.Zyloprim 300 mg at bedtime. 20.Ventolin 2.5 q.i.d. p.r.n. 21.Zovirax 400 mg p.o. 5 times daily. ALLERGIES: 1. CAFFEINE. 2. CODEINE. 3. LEVAQUIN. 4. MORPHINE. 5. ULTRAM. FAMILY HISTORY: No history of heart disease or strokes in the family. SOCIAL HISTORY: No history of smoking. No history of alcohol intake. REVIEW OF SYSTEMS: ENT: Diminished hearing. Diminished vision. CARDIOVASCULAR SYSTEM: As mentioned earlier. RESPIRATORY SYSTEM: As mentioned earlier. GI: No nausea, vomiting. : No dysuria or retention. NERVOUS SYSTEM: As mentioned earlier. ALLERGY/IMMUNOLOGY: No asthma, hayfever. MUSCULOSKELETAL: As mentioned earlier. HEMATOLOGY/ONCOLOGY: As mentioned earlier. ENDOCRINE: No history of diabetes, hypothyroidism. CONSTITUTIONAL: As mentioned earlier. DERMATOLOGY: Negative. RHEUMATOLOGY: Negative. PSYCHIATRY: As mentioned earlier. PHYSICAL EXAMINATION: Patient alert and oriented x3. Pulse 74, regular. Blood pressure 114/60, respirations 16, temperature normal, pulse ox 98% on room air. HEENT: Conjunctivae normal. Oral mucosa moist. NECK: No jugular venous distention. No carotid bruit. No lymph node enlargement. CARDIOVASCULAR SYSTEM: S1, S2 muffled. S1, S2 irregular. RESPIRATORY SYSTEM: Breath sounds diminished at the bases. A few scattered rhonchi and crackles. ABDOMEN: Soft, non-tender. Obese. No mass palpable. LEGS: No edema. No swelling. NERVOUS SYSTEM: Higher functions as mentioned earlier. Moves all 4 limbs. No focal motor or sensory deficit. LYMPHATICS: No lymph node palpable in neck, axillae or groin. SKIN: No ulcer, rash, bleeding. JOINTS: No active deforming arthropathy. LABS: EKG, personally reviewed, showed atrial flutter/fibrillation; appears to be in varying block. Other labs are WBC 3, hemoglobin 11.3. Sodium 139, potassium 3.7, creatinine 1.56. Other labs are noted. ASSESSMENT: 1. Mild pancytopenia for evaluation. 2. Increased creatinine with possible acute renal failure, acute tubular necrosis, chronic kidney disease, stage III possibly. 3. History of hypertension. 4. Hyperlipidemia. 5. Gastroesophageal reflux disease. 6. Degenerative joint disease. 7. History of non-Hodgkin's lymphoma. 8. History of basal cell carcinoma of the left neck. 9. History of gout. 10.History of shingles. 11.History of hiatal hernia. 12.History of foreign body in the left eye. 13.Appendectomy. 14.History of cholecystectomy. 15.History of tubal ligation. 16.FULL CODE. RECOMMENDATIONS AND DISCUSSION: In this 83-year-old woman who presented with multiple complex medical issues, we will monitor the patient closely, continue the current medications, continue with symptomatic treatment. Otherwise at this time I would continue to monitor the telemetry. The rate has come down significantly. I will repeat the labs. The patient had mild pancytopenia possibly as a remnant of the previous non-Hodgkin's disease treatment. I will resume the home medications. Please also note that the patient was on Inderal for prolonged periods for more than 20 years, which was stopped last time. Because of increasing difficulties, Dr. Dill has re-initiated it intraorally at this time. We will continue to monitor. Prognosis guarded. A copy of this dictation is being forwarded to Dr. Moise Dill, who is the primary physician. MMODL / MACKENZIEN: [id number] /
[2019-02-21 20:51] LABS: Appearance,Urine Clear (Clear); Bilirubin,Urine Negative (Negative); Blood,Urine Negative (Negative); Color,Urine Yellow; Glucose,Urine (UA) Negative (Negative); Ketones,Urine Negative (Negative); Leukocyte Esterase,Urine Moderate (Negative); Mucus,Urine Rare /hpf; Nitrite,Urine Negative (Negative); PH, Urine 5.5 (5.0-8.0); Protein,Urine Negative (Negative); RBC,Urine 3 /hpf (0-5); Specific Gravity,Urine 1.016 (1.001-1.035); Squamous Epithelial Cell,Urine 1 /hpf (0-4); Urobilinogen,Urine <2.0 mg/dL (<2.0); WBC,Urine 34 /hpf (0-5)
[2019-02-21] MEDS ORDERED: NON FORMULARY DRUG (Cranberry Fruit Extract [Cranberry] 500 MG) PO SCH (21:00)
[2019-02-21 22:57] LABS: Albumin 2.9 g/dL (3.5-5.0); Total Bilirubin 0.5 mg/dL (0.2-1.3); Total Protein 5.2 g/dL (6.3-8.2)
[2019-02-21] MEDS: IBRUTINIB 140 MG PO SCH (23:28)
[2019-02-21 23:55] LABS: Calcium 8.7 mg/dL (8.4-10.2); Potassium 3.9 mmol/L (3.5-5.1)
[2019-02-22] MEDS: PANTOPRAZOLE 40 MG TABLET PO SCH (06:12)
[2019-02-22] MEDS: ACYCLOVIR 200 MG CAP PO SCH ×5 (06:12→23:05)
[2019-02-22 06:53] LABS: Anisocytosis Slight; Basophils % (A) 0 %; Eosinophils % (A) 0 %; HCT 30.9 % (34.0-46.0); Lymphocytes # (A) 0.3 k/uL (1.0-4.8); Lymphocytes % (A) 6 %; MCH 30.3 pg (25.0-35.0); MCHC 31.4 g/dL (31.0-37.0); MCV 96.5 fL (80.0-100.0); Macrocytosis Slight; Mean Platelet Volume 8.2; Monocytes # (A) 0.2 k/uL (0-1.0); Monocytes % (A) 4 %; Neutrophils # (A) 3.7 k/uL (1.3-7.7); Neutrophils % (A) 88 %; Platelet Count 138 k/uL (150-450); RBC 3.21 m/uL (3.80-5.40); RDW 16.9 % (11.5-15.5); WBC 4.2 k/uL (3.8-10.6)
[2019-02-22 06:58] LABS: HGB 9.7 gm/dL (11.4-16.0)
--- NOTE | 2019-02-22 07:36 | XR ---
EXAMINATION TYPE: XR chest 1V portable DATE OF EXAM: 02/22/2019 CLINICAL HISTORY: Difficulty breathing and CHF progress study. TECHNIQUE: Single AP portable upright view of the chest is obtained. COMPARISON: Outside chest x-ray from 2 days earlier FINDINGS: Background chronic parenchymal change. New patchy right basilar opacity. Left lung clear. Cardiac silhouette size within normal limits with atherosclerotic change aortic knob. Dextroconvex sc oliosis near the thoracolumbar junction redemonstrated. IMPRESSION: Chronic parenchymal changes with patchy right basilar linear atelectasis and/or infiltrat e. No cardiomegaly or central vascular congestion identified on current study.
[2019-02-22 08:15] LABS: Calcium 8.8 mg/dL (8.4-10.2); Potassium 4.2 mmol/L (3.5-5.1)
[2019-02-22] MEDS: FUROSEMIDE 20 MG TAB PO SCH (09:30)
[2019-02-22] MEDS: FAMOTIDINE 20 MG TAB PO SCH (09:30)
[2019-02-22] MEDS: ASCORBIC ACID 500 MG TAB PO SCH ×2 (09:30→21:03)
[2019-02-22] MEDS: LACTOBACILLUS ACIDOPH & BULGAR 1 EACH PACKET PO SCH (09:31)
[2019-02-22] MEDS: CLOBETASOL PROP 0.05% CR 15GM TOPICAL SCH (09:33)
--- NOTE | 2019-02-22 10:53 | CONS ---
CONSULTATION CHIEF COMPLAINT: Syncope. Lila is an 83-year-old lady with history of hypertension, dyslipidemia, non-Hodgkin's lymphoma, appendectomy and cholecystectomy that presented to [facility] having had an episode of syncope. She was at dinner with her daughter, went to the restroom, had abdominal cramps, bowel movement and subsequently she passed out. This was witnessed by her daughter. She was taken to the [facility] where she was found to be in atrial fibrillation and was diagnosed with urinary tract infection and was having episodes of tachycardia following which patient got transferred to [facility]. At the time of my evaluation this morning, her heart rate is well controlled. She is on IV heparin. Denies any chest pain or difficulty in breathing. Did not have further episodes of syncope. She did not have any episodes of tachy or bradyarrhythmias. EKG shows atrial fibrillation with nonspecific ST-T wave changes. Chest x-ray was negative for pulmonary congestion. Atrial fibrillation is new. Hemoglobin is low at 9.7. Troponins have been negative. TSH is normal at 1.8. There is no prior history of coronary artery disease or congestive heart failure. On this admission, she denies leg edema, PND or orthopnea. PAST MEDICAL HISTORY: Significant for hypertension, dyslipidemia, COPD. MEDICATIONS: Medications at home include Ventolin, vitamin C, , Pulmicort, Lasix, Diflucan, Pepcid, K-Dur, Inderal, Zofran, prednisone, omeprazole. ALLERGIES: THE PATIENT IS ALLERGIC TO CODEINE, LEVAQUIN, MORPHINE, AND TRAMADOL. FAMILY HISTORY: Negative for premature coronary artery disease. SOCIAL HISTORY: Negative for current smoking, EtOH abuse, or drug abuse. REVIEW OF SYSTEMS: HEENT is unremarkable. Cardiac as described above. Respiratory as described above. GI negative. Genitourinary negative. Allergy/Immunology: Negative. Musculoskeletal negative. Endocrine and dermatologic negative. Derm negative. Constitutional negative. Oncological negative. SCALLOP BINDER significant for syncope. Rest of the system review is not relevant. PHYSICAL EXAMINATION: On exam, patient is comfortable at rest. Afebrile. Heart rate is 64 beats per minute. Blood pressure is 98/60, respiratory 16, O2 sat is 94%. There is no jugular venous distention. Carotid upstroke is diminished. There is no bruit. Chest exam reveals good air entry bilaterally. Heart exam reveals first and second heart sounds, irregular rhythm and a systolic murmur at the apex. Abdomen is soft. Exam of extremities did not reveal any edema. Peripheral pulses are palpable. ASSESSMENT: 1. Persistent atrial fibrillation with controlled ventricular rate. 2. Urinary tract infection. PLAN: I am going to obtain a 2D echo on her to evaluate her LV function. Continue the IV heparin. She is on Inderal LA, which I am going to continue. We will watch her on heparin until tomorrow and if she continues to tolerate it well without any further drop in hemoglobin, I will consider starting her on Eliquis or Xarelto. MMODL / IJN: [id number] /
[2019-02-22 11:25] VITALS: BMI 25.0
--- NOTE | 2019-02-22 12:40 | ECHOF ---
Referral Reason:chf MEASUREMENTS -------- HEIGHT: 160.0 cm WEIGHT: 64.0 kg BP: 98/61 RVIDd: 3.7 cm (< 3.3) IVSd: 1.3 cm (0.6 - 1.1) LVIDd: 3.5 cm (3.9 - 5.3) LVPWd: 1.4 cm (0.6 - 1.1) IVSs: 1.4 cm LVIDs: 3.0 cm LVPWs: 1.6 cm LAESV Index (A-L): 29.83 ml/m IVSd: 1.3 cm (0.6 - 1.1) LVIDd: 4.4 cm (3.9 - 5.3) LVPWd: 1.5 cm (0.6 - 1.1) IVSs: 1.9 cm LVIDs: 2.8 cm LVPWs: 1.2 cm EDV(Teich): 89 ml ESV(Teich): 29 ml EF(Teich): 68 % %FS: 38 % SV(Teich): 61 ml Ao Diam: 2.6 cm (2.0 - 3.7) AV Cusp: 1.9 cm (1.5 - 2.6) LA Diam: 3.1 cm (2.7 - 3.8) MV EXCURSION: 11.844 mm (> 18.000) MV EF SLOPE: 90 mm/s (70 - 150) EPSS: 0.6 cm AR PHT: 667 ms RAP: 5.00 mmHg RVSP: 61.47 mmHg FINDINGS -------- Atrial fibrillation. This was a technically adequate study. The left ventricular size is normal. There is moderate concentric left ventricular hypertrophy. O verall left ventricular systolic function is normal with, an EF between 55 - 60 %. Left ventricular fillimg pressure cannot be estimated due to Atrial fibrillation. The right ventricle is mildly enlarged. LA is midly dilated 29-33ml/m2. The right atrium is mildly enlarged. Interatrial and interventricular septum intact. The aortic valve is trileaflet and appears structurally normal. There is mild aortic valve sclerosi s. There is mild aortic regurgitation. Mild mitral annular calcification present. Moderate mitral regurgitation is present. Moderate to severe tricuspid regurgitation present. There is moderate to severe pulmonary hypertens ion. The right ventricular systolic pressure, as measured by Doppler, is 61.47mmHg. Trace/mild (physiologic) pulmonic regurgitation. The aortic root size is normal. IVC Not well visulized. There is no pericardial effusion. CONCLUSIONS -------- 1. Atrial fibrillation. 2. This was a technically adequate study. 3. The left ventricular size is normal. 4. There is moderate concentric left ventricular hypertrophy. 5. Overall left ventricular systolic function is normal with, an EF between 55 - 60 %. 6. Left ventricular fillimg pressure cannot be estimated due to Atrial fibrillation. 7. The right ventricle is mildly enlarged. 8. LA is midly dilated 29-33ml/m2. 9. The right atrium is mildly enlarged. 10. Interatrial and interventricular septum intact. 11. The aortic valve is trileaflet and appears structurally normal. 12. There is mild aortic valve sclerosis. 13. There is mild aortic regurgitation. 14. Mild mitral annular calcification present. 15. Moderate mitral regurgitation is present. 16. Moderate to severe tricuspid regurgitation present. 17. There is moderate to severe pulmonary hypertension. 18. The right ventricular systolic pressure, as measured by Doppler, is 61.47mmHg. 19. Trace/mild (physiologic) pulmonic regurgitation. 20. The aortic root size is normal. 21. IVC Not well visulized. 22. There is no pericardial effusion. COMPUTER GAME DESIGNER: Yoon Rojo RDCS
[2019-02-22] MEDS: HEPARIN SOD,PORK IN 0.45% NACL 25,000 UNIT in 0.45% NACL 1 250ML.BAG IV SCH (19:04)
[2019-02-22] MEDS: PROPRANOLOL LA 60 MG CAP.SA.24H PO SCH (21:02)
[2019-02-22] MEDS: MONTELUKAST 10 MG TAB PO SCH (21:03)
[2019-02-22] MEDS: POTASSIUM CHLORIDE ER 20 MEQ TAB.ER PO SCH (21:03)
[2019-02-22] MEDS: IBRUTINIB 140 MG PO SCH (21:03)
[2019-02-22] MEDS: ALLOPURINOL 300 MG TAB PO SCH (21:03)
[2019-02-22] MEDS: FLUOCINOLONE TOPICAL SCH (21:22)
--- NOTE | 2019-02-23 00:44 | PN ---
PROGRESS NOTE DATE OF SERVICE: 02/22/2019 This 83-year-old woman who was admitted with atrial fibrillation with rapid ventricular rate, was referred from [facility]. Patient also had multiple complex medical issues including mild pancytopenia as well as increased creatinine with dehydration also. Patient has weakness and syncope also. Patient being closely monitored. A 2D echo with Doppler was done read by Dr. Johnson and showed normal ejection fraction 50-55 percent and LA was mildly dilated and 29 and 33 and no significant valvular abnormalities except moderate mitral regurgitation, moderate severe tricuspid regurgitation was noted. The patient being closely monitored in telemetry at this time. PAST MEDICAL HISTORY: Reviewed. REVIEW OF SYSTEMS: Cardiovascular: As mentioned earlier. Respiratory: As mentioned earlier. GI no nausea or vomiting. no dysuria. Central nervous system: No numbness or weakness. CURRENT MEDICATIONS: Reviewed include: 1. Acyclovir 400 mg t.i.d. 2. Ventolin. 3. Zyloprim 300 mg q.h.s. 4. Xanax 0.5 t.i.d. 5. Vitamin C 500 mg p.o. b.i.d. 6. Pulmicort. 7. Rocephin 1 g daily. 8. Marinol. 9. Pepcid. 10.Diflucan. 11.Lasix. 13.Lactinex. 14.Narcan. 15.Mycostatin. 16.Doses reviewed. PHYSICAL EXAM: Patient is alert, oriented x3. Pulse 103, regular. Blood pressure 119/60, respirations 16, temperature 97.3. Pulse ox 100 percent on room air. HEENT: Conjunctivae normal. Oral mucosa moist. NECK is no jugular venous distention. No carotid bruit. No lymph node enlargement. Cardiovascular systems: S1, S2 muffled, irregular, ejection systolic murmur. Respirations: Respiration breath sounds diminished in the bases. Bilateral scattered rhonchi and crackles. ABDOMEN: Soft, nontender. No mass palpable. LEGS are no edema. No swelling. Central nervous system: No focal deficits. LABS: At this time shows WBC 4.2, hemoglobin 9.7, sodium 139, potassium 4.2, creatinine is 1.48. ASSESSMENT: 1. Atrial ablation, fast ventricular rate, possibly new onset. 2. Increased creatinine with possible acute renal failure, acute tubular necrosis with some prerenal factors and dehydration. 3. Chronic kidney disease stage II, possibly. 4. Mild pancytopenia for evaluation. 5. History of hypertension. 6. Hyperlipidemia. 7. History of gastroesophageal reflux disease. 8. Degenerative joint disease. 9. History of Hodgkin's lymphoma. 10.History of basal cell carcinoma of the neck. 11.History of gout. 12.History of shingles. 13.History of hiatal hernia. 14.History of foreign body in the left eye. 15.Appendectomy. 16.History of cholecystectomy. 17.History of tubal ligation. 18.FULL CODE. RECOMMENDATIONS AND DISCUSSION: Recommend to current medications, monitoring, management. Symptomatic treatment. The patient continuing the IV heparin at this time. The patient will be on long- term anticoagulation. Otherwise continue the rest of medications. Continue with IV hydration, continue rest of medications. Prognosis guarded. Further recommendations to follow. MMODL / MACKENZIEN: [id number] / MTDD
[2019-02-23] MEDS: ACYCLOVIR 200 MG CAP PO SCH ×5 (05:13→20:57)
[2019-02-23 06:21] LABS: Anisocytosis Slight; Basophils % (A) 0 %; Eosinophils % (A) 0 %; HCT 32.3 % (34.0-46.0); Lymphocytes # (A) 0.3 k/uL (1.0-4.8); Lymphocytes % (A) 8 %; MCH 29.7 pg (25.0-35.0); MCHC 30.9 g/dL (31.0-37.0); MCV 96.1 fL (80.0-100.0); Mean Platelet Volume 8.9; Monocytes # (A) 0.3 k/uL (0-1.0); Monocytes % (A) 6 %; Neutrophils # (A) 3.4 k/uL (1.3-7.7); Neutrophils % (A) 84 %; Platelet Count 136 k/uL (150-450); RBC 3.35 m/uL (3.80-5.40); RDW 16.9 % (11.5-15.5)
[2019-02-23] MEDS: PANTOPRAZOLE 40 MG TABLET PO SCH (06:25)
[2019-02-23 06:56] LABS: Calcium 8.7 mg/dL (8.4-10.2); Potassium 4.1 mmol/L (3.5-5.1)
[2019-02-23] MEDS: ONDANSETRON ODT 4 MG TAB PO PRN (08:31)
[2019-02-23] MEDS: FAMOTIDINE 20 MG TAB PO SCH (09:36)
[2019-02-23] MEDS: ASCORBIC ACID 500 MG TAB PO SCH ×2 (09:37→20:49)
[2019-02-23] MEDS: FUROSEMIDE 20 MG TAB PO SCH (09:37)
[2019-02-23] MEDS: LACTOBACILLUS ACIDOPH & BULGAR 1 EACH PACKET PO SCH (09:37)
[2019-02-23] MEDS: CLOBETASOL PROP 0.05% CR 15GM TOPICAL SCH (09:44)
--- NOTE | 2019-02-23 14:51 | PN ---
PROGRESS NOTE Lila is an 83-year-old lady that is admitted to the hospital with new onset atrial fibrillation. She had an echocardiogram that showed normal LV function with mildly enlarged right ventricle. She denies chest pain or difficulty in breathing. On exam, comfortable at rest. Vital signs are stable. Chest exam reveals good air entry bilaterally. Heart exam reveals first and second heart sounds, irregular rhythm. Exam of the extremities did not reveal any edema. ASSESSMENT: Persistent atrial fibrillation. Heart rate is well controlled. Patient is on heparin. I am going to switch her to Eliquis. Hopefully transfer to rehab over the next 24-48 hours. MMODL / IJN: [id number] /
[2019-02-23] MEDS: APIXABAN 2.5 MG TABLET PO SCH ×2 (14:59→20:54)
[2019-02-23] MEDS: DOCUSATE 100 MG CAP PO PRN (14:59)
--- NOTE | 2019-02-23 18:39 | PN ---
PROGRESS NOTE DATE OF SERVICE: 02/23/2019 This 83-year-old woman who was admitted with multiple medical problems, including atrial fibrillation with rapid ventricular rate, was referred from [facility] with complaints of weakness also. The patient also had elevated creatinine. After a conservative line of management, creatinine is slightly improved at 1.38, but still high at this time. Patient is being closely monitored. The patient also had evidence of UTI. Patient is being initiated on broad-spectrum IV antibiotics. The cultures are negative so far. Past medical history reviewed. REVIEW OF SYSTEMS: CARDIOVASCULAR SYSTEM: As mentioned earlier. RESPIRATORY SYSTEM: As mentioned earlier. GI: No nausea, vomiting. : As mentioned earlier. NERVOUS SYSTEM: No numbness, weakness. CURRENT MEDICATIONS: Reviewed. They are: 1. Zovirax 400 mg 5 times a day. 2. Ventolin. 3. Zyloprim 300 mg at bedtime. 4. Xanax 0.25 t.i.d. 5. Eliquis 2.5 mg b.i.d. 6. Vitamin C 500 mg p.o. b.i.d. 7. Pulmicort 0.5 b.i.d. 8. Rocephin 1 gram daily. 9. Temovate. 10.Colace. 11.Marinol. 12.Pepcid. 13.Diflucan. 14.Lasix. 15.Lactinex. 16.Singulair. 17.Narcan. 18.Mycostatin. 19.Zofran. 20.K-Dur 20 mEq. 21.Inderal. Doses are reviewed. PHYSICAL EXAMINATION: Patient alert oriented x3. Pulse is 67, blood pressure 131/60, respiration 19, temperature 97.2, pulse ox 99% on room air. HEENT: Conjunctivae normal. Oral mucosa moist. CARDIOVASCULAR SYSTEM: S1, S2 irregular. Normal rate. Ejection systolic murmur. RESPIRATORY SYSTEM: Breath sounds diminished at the bases. A few scattered rhonchi. ABDOMEN: Soft, non-tender. LEGS: No edema. No swelling. NERVOUS SYSTEM: Mild diffuse weakness. LABS: WBC 4, hemoglobin 10. Otherwise, APTT noted. Sodium 138, potassium 4.1. ASSESSMENT: 1. Atrial fibrillation with fast ventricular rate, possibly new onset. 2. Increased creatinine with possible acute renal failure, acute tubular necrosis with prerenal factors secondary to dehydration. 3. Chronic kidney disease, stage II possibly. 4. Mild pancytopenia of undetermined etiology, possibly related to previous malignancy. 5. History of hypertension. 6. Gait dysfunction. 7. Hyperlipidemia. 8. History of gastroesophageal reflux disease. 9. Degenerative joint disease. 10.History of Hodgkin's lymphoma. 11.History of basal cell carcinoma of the neck. 12.History of gout. 13.Shingles. 14.History of hiatal hernia. 15.History of foreign body in the left eye. 16.History of appendectomy. 17.History of cholecystectomy. 18.History of tubal ligation. 19.FULL CODE. RECOMMENDATIONS AND DISCUSSION: I recommend to continue current medications, continue with the monitoring, symptomatic treatment. Continue with IV heparin Eliquis. PT/OT evaluation. Continued monitoring and evaluation for rehab. Two-D echo noted. Prognosis guarded because of multiple complex medical issues. Further recommendations to follow. MMODL / MACKENZIEN: [id number] / MTDD
[2019-02-23] MEDS: PROPRANOLOL LA 60 MG CAP.SA.24H PO SCH (20:49)
[2019-02-23] MEDS: POTASSIUM CHLORIDE ER 20 MEQ TAB.ER PO SCH (20:49)
[2019-02-23] MEDS: ALLOPURINOL 300 MG TAB PO SCH (20:49)
[2019-02-23] MEDS: MONTELUKAST 10 MG TAB PO SCH (20:49)
[2019-02-23] MEDS: IBRUTINIB 140 MG PO SCH (20:50)
[2019-02-23] MEDS: FLUOCINOLONE TOPICAL SCH (20:57)
[2019-02-24] MEDS: ONDANSETRON ODT 4 MG TAB PO PRN (05:15)
[2019-02-24 06:20] LABS: Anisocytosis Slight; Basophils % (A) 0 %; Eosinophils # (A) 0.1 k/uL (0-0.7); Eosinophils % (A) 2 %; HCT 31.9 % (34.0-46.0); HGB 10.3 gm/dL (11.4-16.0); Lymphocytes # (A) 0.4 k/uL (1.0-4.8); Lymphocytes % (A) 15 %; MCH 30.6 pg (25.0-35.0); MCHC 32.1 g/dL (31.0-37.0); MCV 95.2 fL (80.0-100.0); Mean Platelet Volume 8.4; Monocytes # (A) 0.3 k/uL (0-1.0); Monocytes % (A) 14 %; Neutrophils # (A) 1.6 k/uL (1.3-7.7); Neutrophils % (A) 65 %; Platelet Count 129 k/uL (150-450); RBC 3.35 m/uL (3.80-5.40); RDW 16.8 % (11.5-15.5); WBC 2.4 k/uL (3.8-10.6)
[2019-02-24 06:33] LABS: Calcium 8.8 mg/dL (8.4-10.2); Potassium 4.1 mmol/L (3.5-5.1)
[2019-02-24] MEDS: ACYCLOVIR 200 MG CAP PO SCH ×5 (06:38→21:30)
[2019-02-24] MEDS: PANTOPRAZOLE 40 MG TABLET PO SCH (06:39)
[2019-02-24] MEDS: LACTOBACILLUS ACIDOPH & BULGAR 1 EACH PACKET PO SCH (09:23)
[2019-02-24] MEDS: APIXABAN 2.5 MG TABLET PO SCH ×2 (09:23→21:25)
[2019-02-24] MEDS: FUROSEMIDE 20 MG TAB PO SCH (09:23)
[2019-02-24] MEDS: FAMOTIDINE 20 MG TAB PO SCH (09:23)
[2019-02-24] MEDS: ASCORBIC ACID 500 MG TAB PO SCH ×2 (09:23→21:25)
--- NOTE | 2019-02-24 10:05 | PN ---
PROGRESS NOTE FOLLOW-UP NOTE: Lila is an 83-year-old lady who is admitted to hospital with atrial fibrillation. This morning she remains in atrial fibrillation with controlled ventricular rate. She is on Eliquis and free of symptoms. On exam, vital signs are stable. Chest exam reveals good air entry bilaterally. Heart exam reveals first and second heart sounds. No gallop. Examination of extremities did not reveal any edema. Peripheral pulses are palpable. Her labs showed that the BUN is 29, creatinine is 1.4. White cell count is low at 2.4. The exact etiology is unclear. Platelet count is 129, hemoglobin is 10.3. ASSESSMENT: Persistent atrial fibrillation. Patient will continue the Eliquis that she is on. Drop in white cell count to be addressed by the primary. MMODL / IJN: [id number] /
[2019-02-24] MEDS: CLOBETASOL PROP 0.05% CR 15GM TOPICAL SCH (11:54)
--- NOTE | 2019-02-24 19:29 | PN ---
PROGRESS NOTE DATE OF SERVICE: 02/24/2019 This 83-year-old woman who was admitted with atrial fibrillation, is being closely monitored. No chest pain. No palpitations. No fever. EXAM: Alert and oriented x3. Pulse is 96, blood pressure 130/69, respirations 16, temperature 97.4, pulse ox 98% on room air. HEENT: Conjunctivae normal. Oral mucosa moist. NECK: No jugular venous distention. No lymph node enlargement. CARDIOVASCULAR: S1, S2. RESPIRATORY: Diminished breath sounds at the bases. A few scattered rhonchi. ABDOMEN: Soft, nontender. LEGS: No swelling. NERVOUS SYSTEM: No focal deficits. LAB STUDIES: WBC 2.2, hemoglobin 10.3, and platelets 129. BMP noted. ASSESSMENT: 1. Atrial fibrillation with fast ventricular rate, possibly new onset. 2. Increased creatinine with possible acute renal failure, acute tubular necrosis with prerenal factors secondary dehydration. 3. Chronic kidney disease stage III possibly. 4. Mild pancytopenia, undetermined etiology, possibly related to previous malignancy. 5. History hypertension. 6. History of gait dysfunction. 7. Hyperlipidemia. 8. History of gastroesophageal reflux disease. 9. Degenerative joint disease. 10.History of Hodgkin's lymphoma. 11.History of basal cell carcinoma of the neck. 12.History of gout. 13.History of shingles. 14.History of hiatal hernia. 15.History of foreign body in the left eye. 16.History of appendectomy. 17.History of cholecystectomy. 18.History of tubal ligation. 19.FULL CODE. RECOMMENDATIONS AND DISCUSSION: Recommend to continue current medication, continue to monitor and symptomatic treatment. Otherwise, at this time I recommend increase ambulation, closely follow with Cardiology. At this time the patient seems to be too good for rehab candidate, however, the daughter works at midnight. We will continue to monitor. Daughter might make arrangements overnight to monitor the patient for now. Guarded prognosis. Further recommendations to follow. MMODL / IJN: [id number] /
[2019-02-24] MEDS: PROPRANOLOL LA 60 MG CAP.SA.24H PO SCH (21:24)
[2019-02-24] MEDS: IBRUTINIB 140 MG PO SCH (21:25)
[2019-02-24] MEDS: POTASSIUM CHLORIDE ER 20 MEQ TAB.ER PO SCH (21:25)
[2019-02-24] MEDS: DOCUSATE 100 MG CAP PO PRN (21:25)
[2019-02-24] MEDS: ALLOPURINOL 300 MG TAB PO SCH (21:25)
[2019-02-24] MEDS: MONTELUKAST 10 MG TAB PO SCH (21:25)
[2019-02-24] MEDS: FLUOCINOLONE TOPICAL SCH (21:29)
[2019-02-25] MEDS: ACYCLOVIR 200 MG CAP PO SCH ×3 (04:57→09:24)
[2019-02-25] MEDS: PANTOPRAZOLE 40 MG TABLET PO SCH (05:53)
[2019-02-25] MEDS: ONDANSETRON ODT 4 MG TAB PO PRN (05:53)
[2019-02-25 06:02] VITALS: BP 112/65; PULSE 83; RESP 16; TEMP 97.9
[2019-02-25] MEDS: CLOBETASOL PROP 0.05% CR 15GM TOPICAL SCH (08:48)
[2019-02-25] MEDS: APIXABAN 2.5 MG TABLET PO SCH (08:49)
[2019-02-25] MEDS: FAMOTIDINE 20 MG TAB PO SCH (08:49)
[2019-02-25] MEDS: FUROSEMIDE 20 MG TAB PO SCH (08:49)
[2019-02-25] MEDS: ASCORBIC ACID 500 MG TAB PO SCH (08:49)
[2019-02-25] MEDS: LACTOBACILLUS ACIDOPH & BULGAR 1 EACH PACKET PO SCH (08:49)
--- NOTE | 2019-02-25 09:12 | PN ---
PROGRESS NOTE Lila is an 83-year-old lady that is admitted to hospital with atrial fibrillation and Cardiology is involved in her care for the same. This morning she is doing well and is free of symptoms. She is awaiting discharge. EXAM: Comfortable at rest. Vital signs are stable. Chest exam reveals good air entry bilaterally. Heart exam reveals first and second heart sounds. No gallop. Abdomen is soft. Exam of extremities did not reveal any edema. Peripheral pulses are felt. ASSESSMENT: Persistent atrial fibrillation with controlled ventricular rate. PLAN: I will continue the patient on Eliquis 2.5 b.i.d. along with Inderal LA that she is on. The patient is stable for discharge. We will repeat CBC on her white cell count was low yesterday. MMODL / IJN: [id number] /
[2019-02-25 09:22] LABS: Anisocytosis Slight; Basophils % (A) 0 %; Eosinophils # (A) 0.1 k/uL (0-0.7); Eosinophils % (A) 5 %; HCT 37.8 % (34.0-46.0); HGB 11.6 gm/dL (11.4-16.0); Lymphocytes # (A) 0.2 k/uL (1.0-4.8); Lymphocytes % (A) 11 %; MCH 29.6 pg (25.0-35.0); MCHC 30.8 g/dL (31.0-37.0); MCV 96.1 fL (80.0-100.0); Mean Platelet Volume 8.4; Monocytes # (A) 0.3 k/uL (0-1.0); Monocytes % (A) 14 %; Neutrophils # (A) 1.4 k/uL (1.3-7.7); Neutrophils % (A) 67 %; Platelet Count 135 k/uL (150-450); RBC 3.94 m/uL (3.80-5.40); RDW 16.9 % (11.5-15.5); WBC 2.2 k/uL (3.8-10.6)
--- NOTE | 2019-02-26 08:50 | DS ---
DISCHARGE SUMMARY DATE OF SERVICE: 02/25/2019 FINAL DIAGNOSES: 1. Atrial fibrillation with fast ventricular rate, present on admission. 2. Increased creatinine with possible acute renal failure, acute tubular necrosis with prerenal factors secondary to dehydration present on admission, improved. 3. Chronic kidney disease stage III possibly. 4. Mild pancytopenia undetermined etiology, possibly related to previous malignancy. 5. Hypertension, history of gait dysfunction. 6. History of hyperlipidemia. 7. History of gastroesophageal reflux disease. 8. Degenerative joint disease. 9. History of Hodgkin's lymphoma. 10.History of basal cell carcinoma of the neck. 11.History of gout. 12.History of shingles. 13.History of hiatal hernia. 14.History of foreign body of the left eye. 15.History of appendectomy. 16.History of cholecystectomy. 17.History of tubal ligation. 18.FULL CODE. DISCHARGE DISPOSITION: The patient will be discharged in a stable condition with guarded prognosis. HISTORY OF PRESENT ILLNESS: This 83-year-old gentleman woman with a past medical history of atrial fibrillation with fast ventricular rate. Patient treated with beta blockers. Patient improved significantly. was initiated. Cardiology saw the patient. Patient improved significantly. The patient will be discharged in a stable condition with guarded prognosis. PHYSICAL EXAMINATION: On exam, vitals are stable. CARDIOVASCULAR SYSTEM: S1, S2. RESPIRATION: A few scattered rhonchi. ABDOMEN: Soft. NERVOUS SYSTEM: No focal deficits. DISCHARGE ADVICE: 1. Diet is cardiac diet. 2. Activity limited until followup. 3. Follow up with Dr. Masood Dill in 1-2 days. 4. Follow up with Cardiology as recommended. DISCHARGE MEDICATIONS ARE: 1. Clobetasol 0.5 solution daily. 2. Cranberry as before. 3. Fluocinolone as before. 4. Diflucan 150 mg daily p.r.n. 5. Imbruvica 140 mg p.o. q.h.s. 6. Inderal LA 60 mg q.h.s. 7. K-Dur 20 mg p.o. q.h.s. 8. Lasix 20 mg p.o. daily. 9. Marinol 2.5 daily. 10.Nystatin p.r.n. 11.Omeprazole 20 mg p.o. daily. 12.Pepcid 20 mg p.o. daily. 13.Prednisone as before. 14.Lactobacillus 1 p.o. daily. 15.Pulmicort 0.5 b.i.d. p.r.n. 16.Singulair 10 mg q.h.s. 17.Albuterol 2.5 q.i.d. p.r.n. 18.Vitamin C 500 mg p.o. b.i.d. 19.Zofran 4 mg q.8 p.r.n. 20.Zovirax 400 mg 5 times daily. 21.Zyloprim 300 mg q.h.s. 22.Ceftin 500 mg daily for 3 days. 23.Eliquis 2.5 mg p.o. b.i.d. DISCHARGE DISPOSITION: The patient will be discharged in a stable condition with guarded prognosis. Once again, the patient will be discharged in stable condition with guarded prognosis. Total time taken 35 minutes. ONEL / MACKENZIEN: [id number] / MTDD
== END 2019-02-25 13:40 | disposition home or self-care (01) | DRG 308 ==
LOC: EC 15:49 → 3SCARD 16:51
PROVIDERS: ADMIT Hospitalist; ATTEND Hospitalist
DX: I48.19 Other persistent atrial fibrillation (principal); N17.0 Acute kidney failure with tubular necrosis; C85.90 Non-Hodgkin lymphoma, unspecified, unspecified site; D61.818 Other pancytopenia; I13.0 Hypertensive heart and chronic kidney disease with heart failure and stage 1 through stage 4 chronic kidney disease, or unspecified chronic kidney disease; N39.0 Urinary tract infection, site not specified; E78.5 Hyperlipidemia, unspecified; I08.1 Rheumatic disorders of both mitral and tricuspid valves; I48.92 Unspecified atrial flutter; I50.9 Heart failure, unspecified; J44.9 Chronic obstructive pulmonary disease, unspecified; K21.9 Gastro-esophageal reflux disease without esophagitis; M19.90 Unspecified osteoarthritis, unspecified site; N18.3 Chronic kidney disease, stage 3 (moderate); Z79.01 Long term (current) use of anticoagulants; Z79.899 Other long term (current) drug therapy; Z85.828 Personal history of other malignant neoplasm of skin; Z86.19 Personal history of other infectious and parasitic diseases; Z90.49 Acquired absence of other specified parts of digestive tract; Z90.710 Acquired absence of both cervix and uterus; Z98.51 Tubal ligation status; Z88.1 Allergy status to other antibiotic agents; Z88.5 Allergy status to narcotic agent; Z88.8 Allergy status to other drugs, medicaments and biological substances
CPT/HCPCS: 71045; 80048; 80053; 81001; 84443; 84484; 85025; 85610; 85730; 87040; 87086; 93005; 93306; 94640; 99285

== ENCOUNTER 2019-03-24 22:29 | Inpatient (IN) | payer MEDICARE ==
--- NOTE | 2019-03-25 00:19 | ED ---
Arrhythmia/Palpitations HPI - General Chief Complaint: Arrhythmia/Palpitations Stated Complaint: A fib/RBR Time Seen by Provider: 03/24/19 22:30 Source: patient, EMS Mode of arrival: EMS Limitations: no limitations - History of Present Illness Initial Comments: The patient is an 83-year-old female who presents emergency room as a transfer from [facility]. She states that she awoke in the middle of the night and was feeling generally weak. She went back to bed and around 6:30 AM when she woke she had difficulties ambulating and required significant assistance from her daughter. She went into [facility] where she was found to be in A. fib with a rapid ventricular rate of 150. She does have a history of recently diagnosed A. fib. She is on eliquis. She's been taking her medications as directed. Denies any recent illnesses. No fevers or chills. Denies any nausea or vomiting. No chest or abdominal pain. No shortness of breath. Denies cough. No changes or bowel or bladder habits. She does have a history of lymphoma and is currently oral chemo. Lab studies from [place] demonstrated a creatinine of 2. They did start the patient on 100 cc per hour and transferred her to our facility as she does see Dr. Crowder and cardiology here. Patient arrives and states she is asymptomatic. There are no allevia ting, precipitating or modifying factors - Related Data Home Medications Medication Instructions Recorded Confirmed Allopurinol [Zyloprim] 300 mg PO HS 04/22/18 03/25/19 Montelukast [Singulair] 10 mg PO HS 04/22/18 03/25/19 Omeprazole 20 mg PO DAILY 04/22/18 03/25/19 Albuterol Nebulized [Ventolin 2.5 mg INHALATION RT-QID PRN 02/21/19 03/25/19 Nebulized] Ascorbic Acid [Vitamin C] 500 mg PO BID 02/21/19 03/25/19 Budesonide [Pulmicort] 0.5 mg INHALATION RT-BID PRN 02/21/19 03/25/19 Clobetasol 0.05% Solution 1 applic TOPICAL DAILY 02/21/19 03/25/19 Cranberry Fruit Extract [Cranberry] 500 mg PO HS 02/21/19 03/25/19 Dronabinol [Marinol] 2.5 mg PO AC-BID PRN 02/21/19 03/25/19 Famotidine [Pepcid] 20 mg PO DAILY 02/21/19 03/25/19 Fluocinolone/Shower Cap 1 applic TOPICAL HS 02/21/19 03/25/19 [Endgr-Daiamxm-Ya Scalp Oil] Furosemide [Lasix] 20 mg PO DAILY 02/21/19 03/25/19 Ibrutinib [Imbruvica] 140 mg PO HS@2100 02/21/19 03/25/19 L.acidoph,Paracasei, B.lactis 1 cap PO DAILY 02/21/19 03/25/19 [Probiotic] Ondansetron [Zofran ODT] 4 mg PO Q8HR PRN 02/21/19 03/25/19 Potassium Chloride ER [K-Dur 10] 20 meq PO HS 02/21/19 03/25/19 Propranolol HCl [Inderal LA] 60 mg PO DIRECTED 02/21/19 03/25/19 Docusate [Colace] 100 mg PO DAILY PRN 03/25/19 03/25/19 Previous Rx's Medication Instructions Recorded Apixaban [Eliquis] 2.5 mg PO BID #60 tablet 02/25/19 Allergies Allergy/AdvReac Type Severity Reaction Status Date / Time caffeine AdvReac PVCS Verified 03/25/19 10:05 codeine AdvReac Nausea & Verified 03/25/19 10:05 Vomiting levofloxacin [From Levaquin] AdvReac Nausea & Verified 03/25/19 10:05 Vomiting morphine AdvReac Nausea & Verified 03/25/19 10:05 Vomiting tramadol [From Ultram] AdvReac Nausea & Verified 03/25/19 10:05 Vomiting Review of Systems ROS Statement: Those systems with pertinent positive or pertinent negative responses have been documented in the HPI. ROS Other: All systems not noted in ROS Statement are negative. Past Medical History Past Medical History: Cancer, GERD/Reflux, Hyperlipidemia, Hypertension, Osteoarthritis (OA) Additional Past Medical History / Comment(s): non-hodgkins lymphoma, basal cell carcinoma L neck, gout, shingles, hiatal hernia, migraines,foreign body L eye, rotatr cuff tear, fx coccyx 1971, stress test 02-04-18 takes merinol to help with appitite. History of Any Multi-Drug Resistant Organisms: None Reported Past Surgical History: Appendectomy, Cholecystectomy, Hysterectomy, Tubal Ligation Additional Past Surgical History / Comment(s): EGD 2015 r/t food items being stuck. multiple eye surgical procedures for cataract and laser. tumor removal eye orbit. Past Anesthesia/Blood Transfusion Reactions: No Reported Reaction Past Psychological History: No Psychological Hx Reported Smoking Status: Never smoker Past Alcohol Use History: None Reported Past Drug Use History: Marijuana - Past Family History Father History Unknown: Yes Additional Family Medical History / Comment(s): Ulcers, GIB Mother History Unknown: Yes Family Medical History: Hypertension Additional Family Medical History / Comment(s): Gout, demetia, gallbladder removal General Exam Limitations: no limitations General appearance: alert, in no apparent distress Head exam: Present: atraumatic, normocephalic, normal inspection Eye exam: Present: normal appearance, PERRL, EOMI. Absent: scleral icterus, conjunctival injection, periorbital swelling ENT exam: Present: normal exam, mucous membranes moist Neck exam: Present: normal inspection. Absent: tenderness, meningismus, lymphadenopathy Respiratory exam: Present: normal lung sounds bilaterally. Absent: respiratory distress, wheezes, rales, rhonchi, stridor Cardiovascular Exam: Present: tachycardia, irregular rhythm, normal heart sounds. Absent: systolic murmur, diastolic murmur, rubs, gallop, clicks GI/Abdominal exam: Present: soft, normal bowel sounds. Absent: distended, tenderness, guarding, rebound, rigid Extremities exam: Present: normal inspection, full ROM, normal capillary refill. Absent: tenderness, pedal edema, joint swelling, calf tenderness Back exam: Present: normal inspection Neurological exam: Present: alert, oriented X3, CN II-XII intact Psychiatric exam: Present: normal affect, normal mood Skin exam: Present: warm, dry, intact, normal color. Absent: rash Course Vital Signs 03/24/19 03/24/19 03/24/19 22:38 22:45 22:51 Temperature 98.6 F Pulse Rate 121 H 115 H Pulse Rate [ 115 H Career Development Engineer ] Respiratory 20 20 Rate Blood Pressure 105/52 94/62 Blood Pressure [Right Arm] O2 Sat by Pulse 98 98 Oximetry 03/24/19 03/24/19 03/25/19 23:00 23:45 00:15 Temperature Pulse Rate 121 H 108 H 118 H Pulse Rate [ Career Development Engineer ] Respiratory 20 19 19 Rate Blood Pressure 100/68 101/78 112/73 Blood Pressure [Right Arm] O2 Sat by Pulse 97 99 98 Oximetry 03/25/19 03/25/19 03/25/19 00:49 01:00 01:21 Temperature Pulse Rate 128 H 112 H 123 H Pulse Rate [ Career Development Engineer ] Respiratory 19 19 20 Rate Blood Pressure 120/74 100/61 103/72 Blood Pressure [Right Arm] O2 Sat by Pulse 98 97 99 Oximetry 03/25/19 03/25/19 03/25/19 01:30 02:00 02:30 Temperature Pulse Rate 114 H 111 H 112 H Pulse Rate [ Career Development Engineer ] Respiratory 16 12 16 Rate Blood Pressure 80/69 101/60 85/58 Blood Pressure [Right Arm] O2 Sat by Pulse Oximetry 03/25/19 03/25/19 03/25/19 03:00 03:10 03:20 Temperature Pulse Rate 77 71 67 Pulse Rate [ Career Development Engineer ] Respiratory 16 12 16 Rate Blood Pressure 95/62 97/40 99/44 Blood Pressure [Right Arm] O2 Sat by Pulse Oximetry 03/25/19 03/25/19 03/25/19 03:37 05:30 06:00 Temperature 98.6 F Pulse Rate 63 70 89 Pulse Rate [ Career Development Engineer ] Respiratory 12 16 18 Rate Blood Pressure 84/53 82/58 94/57 Blood Pressure [Right Arm] O2 Sat by Pulse 98 Oximetry 03/25/19 03/25/19 03/25/19 07:01 07:14 10:29 Temperature Pulse Rate 90 83 Pulse Rate [ 87 Career Development Engineer ] Respiratory 16 16 Rate Blood Pressure 149/47 110/52 Blood Pressure [Right Arm] O2 Sat by Pulse 99 99 Oximetry 03/25/19 03/25/19 03/25/19 12:44 12:57 14:29 Temperature Pulse Rate 83 89 Pulse Rate [ Career Development Engineer ] Respiratory 16 16 Rate Blood Pressure 92/55 102/74 91/53 Blood Pressure [Right Arm] O2 Sat by Pulse 98 99 Oximetry 03/25/19 03/25/19 03/25/19 15:02 16:00 18:00 Temperature 97.7 F Pulse Rate 86 86 89 Pulse Rate [ 87 Career Development Engineer ] Respiratory 16 22 20 Rate Blood Pressure 113/53 113/53 126/64 Blood Pressure [Right Arm] O2 Sat by Pulse 96 97 99 Oximetry 03/25/19 03/25/19 03/25/19 18:40 20:00 22:00 Temperature 98 F Pulse Rate 90 89 93 Pulse Rate [ 87 Career Development Engineer ] Respiratory 18 23 18 Rate Blood Pressure 114/70 97/85 Blood Pressure [Right Arm] O2 Sat by Pulse 99 98 97 Oximetry 03/26/19 03/26/19 03/26/19 00:00 04:00 06:51 Temperature 98.2 F Pulse Rate 95 96 94 Pulse Rate [ Career Development Engineer ] Respiratory 20 20 Rate Blood Pressure 145/55 103/85 Blood Pressure [Right Arm] O2 Sat by Pulse 97 97 Oximetry 03/26/19 03/26/19 03/26/19 07:00 07:07 10:41 Temperature 98.9 F 98.5 F Pulse Rate 88 97 85 Pulse Rate [ Career Development Engineer ] Respiratory 18 18 Rate Blood Pressure 106/58 Blood Pressure [Right Arm] O2 Sat by Pulse 98 Oximetry 03/26/19 03/26/19 03/26/19 10:42 11:10 11:20 Temperature 98.5 F Pulse Rate 90 93 Pulse Rate [ 85 Career Development Engineer ] Respiratory 18 Rate Blood Pressure Blood Pressure 106/58 [Right Arm] O2 Sat by Pulse 98 Oximetry 03/26/19 03/26/19 03/26/19 15:00 16:00 17:00 Temperature 100.9 F H 97.9 F 98.5 F Pulse Rate 89 89 Pulse Rate [ 78 Career Development Engineer ] Respiratory 18 18 Rate Blood Pressure 90/62 90/62 Blood Pressure 97/55 [Right Arm] O2 Sat by Pulse 96 98 Oximetry EKG Findings - EKG Comments: EKG Findings:: EKG demonstrates atrial fibrillation with rapid ventricular response of 103. QRS 82. QTC 385. No acute ST segment elevations or depressions concerning for ischemic changes Medical Decision Making - Medical Decision Making Upon arrival the patient is placed in trauma 1. Heart rate is improved to 115. I did recommend repeating the patient's laboratory studies. She does provide a urine sample. Patient is a hard stick and so it is difficult to receive labs. Coags are normal. Urinalysis shows positive nitrites with trace leukocyte esterase, rare white blood cell and occasional bacteria. Blood culture was obtained. The patient is initiated and Rocephin. I did admit the patient to [facility]. Patient is currently awaiting a telemetry bed. I did initiate her on a cardizem drip at 5 ml per hour. The patient is currently awaiting a bed on the floor - Lab Data Result diagrams: 03/26/19 06:01 03/26/19 06:01 Disposition Clinical Impression: Atrial fibrillation, Acute UTI Disposition: ADMITTED IP TO THIS HOSP Condition: Stable Is patient prescribed a controlled substance at d/c from ED?: No Decision to Admit Reason: Admit from EC Decision Date: 03/25/19 Decision Time: 00:19
[2019-03-25] MEDS ORDERED: NALOXONE 0.4 MG/ML 1 ML VIAL IV PRN (00:20)
[2019-03-25] MEDS: DILTIAZEM 125 MG in SODIUM CHLORIDE 0.9% 100 ML IV SCH (01:12)
[2019-03-25] MEDS: SODIUM CHLORIDE 0.9% 1,000 ML IV SCH ×3 (01:12→21:30)
[2019-03-25 02:15] LABS: Amorphous Sediment,Urine Rare /hpf; Appearance,Urine Cloudy (Clear); Bacteria,Urine Occasional /hpf; Bilirubin,Urine Negative (Negative); Blood,Urine Negative (Negative); Color,Urine Yellow; Glucose,Urine (UA) Negative (Negative); Ketones,Urine Negative (Negative); Leukocyte Esterase,Urine Trace (Negative); Mucus,Urine Rare /hpf; Nitrite,Urine Positive (Negative); PH, Urine 7.5 (5.0-8.0); Protein,Urine Trace (Negative); Specific Gravity,Urine 1.014 (1.001-1.035); Squamous Epithelial Cell,Urine 1 /hpf (0-4); Urobilinogen,Urine <2.0 mg/dL (<2.0); WBC,Urine 4 /hpf (0-5)
[2019-03-25 02:21] LABS: Anisocytosis Slight; HCT 39.2 % (34.0-46.0); HGB 12.8 gm/dL (11.4-16.0); MCH 31.5 pg (25.0-35.0); MCHC 32.7 g/dL (31.0-37.0); MCV 96.5 fL (80.0-100.0); Macrocytosis Slight; Mean Platelet Volume 10.6; RBC 4.06 m/uL (3.80-5.40); RDW 17.1 % (11.5-15.5)
[2019-03-25 02:23] LABS: INR 1.2 (<1.2); Partial Thromboplastin Time 29.7 sec (22.0-30.0); Prothrombin Time 12.4 sec (9.0-12.0)
[2019-03-25] MEDS ORDERED: cefTRIAXone IN SWFI 1,000 MG/10 ML SYRINGE IVP STA (02:31)
[2019-03-25 02:35] LABS: ALT 16 U/L (4-34); AST 14 U/L (14-36); African American GFR (CKD) 29 (>60 ml/min/1.73 sqM); Albumin 2.7 g/dL (3.5-5.0); Alkaline Phosphatase 53 U/L (38-126); Anion Gap 5 mmol/L; Blood Urea Nitrogen 33 mg/dL (7-17); Calcium 8.3 mg/dL (8.4-10.2); Carbon Dioxide 26 mmol/L (22-30); Chloride 106 mmol/L (98-107); Creatine Kinase <20 U/L (30-135); Glucose 86 mg/dL (74-99); Magnesium 1.9 mg/dL (1.6-2.3); Non-African American GFR(CKD) 25 (>60 ml/min/1.73 sqM); Potassium 4.3 mmol/L (3.5-5.1); Sodium 137 mmol/L (137-145); Total Protein 4.9 g/dL (6.3-8.2)
[2019-03-25] MEDS ORDERED: SODIUM CHLORIDE 0.9% 1,000 ML IV STA (02:39)
[2019-03-25] MEDS ORDERED: SODIUM CHLORIDE 0.9% 500 ML 500 ML IV ONE (02:46)
[2019-03-25 02:49] LABS: Platelet Count 70 k/uL (150-450)
[2019-03-25 02:54] LABS: Band Neutrophils % 10 %; Eosinophils # (M) 0.14 k/uL (0-0.7); Lymphocytes # (M) 0.46 k/uL (1.0-4.8); Monocytes # (M) 0.12 k/uL (0-1.0); Neutrophils % (M) 54 %; Nucleated Red Blood Cells 0 /100 WBC (0-0); Total Cells Counted 100
[2019-03-25 02:55] LABS: Ovalocytes Present
[2019-03-25 02:59] LABS: Polychromasia Present
[2019-03-25] MEDS: APIXABAN 2.5 MG TABLET PO SCH ×2 (09:47→21:30)
[2019-03-25] MEDS ORDERED: ONDANSETRON ODT 4 MG TAB PO PRN (10:50)
[2019-03-25] MEDS ORDERED: DOCUSATE 100 MG CAP PO PRN (10:50)
[2019-03-25] MEDS ORDERED: DRONABINOL 2.5 MG CAPSULE PO PRN (10:50)
[2019-03-25] MEDS ORDERED: FUROSEMIDE 20 MG TAB PO SCH (10:58)
[2019-03-25] MEDS: ASCORBIC ACID 500 MG TAB PO SCH ×2 (11:38→21:30)
[2019-03-25] MEDS: FAMOTIDINE 20 MG TAB PO SCH (11:38)
[2019-03-25] MEDS: METOPROLOL TARTRATE 50 MG TAB PO SCH ×2 (12:53→21:32)
--- NOTE | 2019-03-25 12:55 | P.HPIM ---
History of Present Illness This is a pleasant 83 years old female with past medical history of hypertension, hyperlipidemia, GERD, non-Hodgkin lymphoma, B-cell carcinoma of the left neck, gout, migraines, rotator cuff tear. Patient presents because of running fever low-grade 420 of both normal as per daughter at bedside who lives with her. Also she was getting progressively weak. Her legs were getting more swollen On the presentation her heart rate was 121. Blood pressure stable. Chronic leukopenia and currently WBC is 2.0 similar to the month. Platelet 70, was 135 at early February. Creatinine is 1.8, close to baseline of 1.2-1.5. Urinalysis is suspicious for infection. EKG showing sinus tachycardia at 103. Emergency room patient was started on Rocephin, it 100 ml per hour and 500 ml bolus Review of Systems CONSTITUTIONAL: No fever, no malaise, no fatigue. HEENT: No recent visual problems or hearing problems. Denied any sore throat. CARDIOVASCULAR: No orthopnea, PND, no palpitations, no syncope. PULMONARY: No shortness of breath, no cough, no hemoptysis. GASTROINTESTINAL: No diarrhea, no nausea, no vomiting, no abdominal pain. Normoactive bowel sounds. NEUROLOGICAL: No headaches, no weakness, no numbness. HEMATOLOGICAL: Denies any bleeding or petechiae. GENITOURINARY: Denies any burning micturition, frequency, or urgency. MUSCULOSKELETAL/RHEUMATOLOGICAL: Denies any joint pain, swelling, or any muscle pain. ENDOCRINE: Denies any polyuria or polydipsia. Past Medical History Past Medical History: Cancer, GERD/Reflux, Hyperlipidemia, Hypertension, Osteoarthritis (OA) Additional Past Medical History / Comment(s): non-hodgkins lymphoma, basal cell carcinoma L neck, gout, shingles, hiatal hernia, migraines,foreign body L eye, rotatr cuff tear, fx coccyx 1971, stress test 02-04-18 takes merinol to help with appitite. History of Any Multi-Drug Resistant Organisms: None Reported Past Surgical History: Appendectomy, Cholecystectomy, Hysterectomy, Tubal Ligation Additional Past Surgical History / Comment(s): EGD 2014 r/t food items being stuck. multiple eye surgical procedures for cataract and laser. tumor removal eye orbit. Past Anesthesia/Blood Transfusion Reactions: No Reported Reaction Past Psychological History: No Psychological Hx Reported Smoking Status: Never smoker Past Alcohol Use History: None Reported Past Drug Use History: Marijuana - Past Family History Father History Unknown: Yes Additional Family Medical History / Comment(s): Ulcers, GIB Mother History Unknown: Yes Family Medical History: Hypertension Additional Family Medical History / Comment(s): Gout, demetia, gallbladder removal Medications and Allergies Home Medications Medication Instructions Recorded Confirmed Type Allopurinol [Zyloprim] 300 mg PO HS 04/22/18 03/25/19 History Montelukast [Singulair] 10 mg PO HS 04/22/18 03/25/19 History Omeprazole 20 mg PO DAILY 04/22/18 03/25/19 History Albuterol Nebulized [Ventolin 2.5 mg INHALATION RT-QID PRN 02/21/19 03/25/19 History Nebulized] Ascorbic Acid [Vitamin C] 500 mg PO BID 02/21/19 03/25/19 History Budesonide [Pulmicort] 0.5 mg INHALATION RT-BID PRN 02/21/19 03/25/19 History Clobetasol 0.05% Solution 1 applic TOPICAL DAILY 02/21/19 03/25/19 History Cranberry Fruit Extract [Cranberry] 500 mg PO HS 02/21/19 03/25/19 History Dronabinol [Marinol] 2.5 mg PO AC-BID PRN 02/21/19 03/25/19 History Famotidine [Pepcid] 20 mg PO DAILY 02/21/19 03/25/19 History Fluocinolone/Shower Cap 1 applic TOPICAL HS 02/21/19 03/25/19 History [Gdkoa-Thzntku-Pj Scalp Oil] Furosemide [Lasix] 20 mg PO DAILY 02/21/19 03/25/19 History Ibrutinib [Imbruvica] 140 mg PO HS@2100 02/21/19 03/25/19 History L.acidoph,Paracasei, B.lactis 1 cap PO DAILY 02/21/19 03/25/19 History [Probiotic] Ondansetron [Zofran ODT] 4 mg PO Q8HR PRN 02/21/19 03/25/19 History Potassium Chloride ER [K-Dur 10] 20 meq PO HS 02/21/19 03/25/19 History Propranolol HCl [Inderal LA] 60 mg PO DIRECTED 02/21/19 03/25/19 History Apixaban [Eliquis] 2.5 mg PO BID #60 tablet 02/25/19 03/25/19 Rx Docusate [Colace] 100 mg PO DAILY PRN 03/25/19 03/25/19 History Allergies Allergy/AdvReac Type Severity Reaction Status Date / Time caffeine AdvReac PVCS Verified 03/25/19 10:05 codeine AdvReac Nausea & Verified 03/25/19 10:05 Vomiting levofloxacin [From Levaquin] AdvReac Nausea & Verified 03/25/19 10:05 Vomiting morphine AdvReac Nausea & Verified 03/25/19 10:05 Vomiting tramadol [From Ultram] AdvReac Nausea & Verified 03/25/19 10:05 Vomiting Physical Exam Vitals: Vital Signs Temp Pulse Pulse Resp BP Pulse Ox 03/25/19 10:29 83 16 110/52 99 03/25/19 07:14 90 16 149/47 99 03/25/19 07:01 87 03/25/19 06:00 98.6 F 89 18 94/57 98 03/25/19 05:30 70 16 82/58 03/25/19 03:37 63 12 84/53 03/25/19 03:20 67 16 99/44 03/25/19 03:10 71 12 97/40 03/25/19 03:00 77 16 95/62 03/25/19 02:30 112 H 16 85/58 03/25/19 02:00 111 H 12 101/60 03/25/19 01:30 114 H 16 80/69 03/25/19 01:21 123 H 20 103/72 99 03/25/19 01:00 112 H 19 100/61 97 03/25/19 00:49 128 H 19 120/74 98 03/25/19 00:15 118 H 19 112/73 98 03/24/19 23:45 108 H 19 101/78 99 03/24/19 23:00 121 H 20 100/68 97 03/24/19 22:51 115 H 03/24/19 22:45 115 H 20 94/62 98 03/24/19 22:38 98.6 F 121 H 20 105/52 98 Intake and Output 03/24/19 03/25/19 03/25/19 22:59 06:59 14:59 Other: Weight 62.142 kg GENERAL: The patient is alert and oriented x3, not in any acute distress. Well developed, well nourished. HEENT: Pupils are round and equally reacting to light. EOMI. No scleral icterus. No conjunctival pallor. Normocephalic, atraumatic. No pharyngeal erythema. No thyromegaly. CARDIOVASCULAR: S1 and S2 present. No murmurs, rubs, or gallops. PULMONARY: Chest is clear to auscultation, no wheezing or crackles. -ABDOMEN: Soft, suprapubic tenderness with no rebound tenderness, nondistended, normoactive bowel sounds. No palpable organomegaly. MUSCULOSKELETAL: No joint swelling or deformity. -EXTREMITIES: No cyanosis, clubbing,. Bilateral leg edema NEUROLOGICAL: Gross neurological examination did not reveal any focal deficits. SKIN: No rashes. No petechiae Results CBC & Chem 7: 03/25/19 02:00 03/25/19 01:59 Labs: Abnormal Lab Results - Last 24 Hours (Table) 03/25/19 03/25/19 03/25/19 Range/Units 01:00 01:59 02:00 WBC 2.0 L (3.8-10.6) k/uL RDW 17.1 H (11.5-15.5) % Plt Count 70 L (150-450) k/uL Neutrophils # (Manual) 1.20 L (1.3-7.7) k/uL Lymphocytes # (Manual) 0.46 L (1.0-4.8) k/uL PT (9.0-12.0) sec INR (<1.2) BUN 33 H (7-17) mg/dL Creatinine 1.85 H (0.52-1.04) mg/dL Calcium 8.3 L (8.4-10.2) mg/dL Creatine Kinase <20 L (30-135) U/L Total Protein 4.9 L (6.3-8.2) g/dL Albumin 2.7 L (3.5-5.0) g/dL Urine Appearance Cloudy H (Clear) Urine Protein Trace H (Negative) Urine Nitrite Positive H (Negative) Ur Leukocyte Esterase Trace H (Negative) Urine WBC Clumps Rare H (None) /hpf Amorphous Sediment Rare H (None) /hpf Urine Bacteria Occasional H (None) /hpf Urine Mucus Rare H (None) /hpf 03/25/19 Range/Units 02:00 WBC (3.8-10.6) k/uL RDW (11.5-15.5) % Plt Count (150-450) k/uL Neutrophils # (Manual) (1.3-7.7) k/uL Lymphocytes # (Manual) (1.0-4.8) k/uL PT 12.4 H (9.0-12.0) sec INR 1.2 H (<1.2) BUN (7-17) mg/dL Creatinine (0.52-1.04) mg/dL Calcium (8.4-10.2) mg/dL Creatine Kinase (30-135) U/L Total Protein (6.3-8.2) g/dL Albumin (3.5-5.0) g/dL Urine Appearance (Clear) Urine Protein (Negative) Urine Nitrite (Negative) Ur Leukocyte Esterase (Negative) Urine WBC Clumps (None) /hpf Amorphous Sediment (None) /hpf Urine Bacteria (None) /hpf Urine Mucus (None) /hpf Assessment and Plan Assessment: History of atrial fibrillation, on Eliquis. comes now with A. fib and RVR chronic kidney disease with elements of acute kidney injury Acute urinary tract infection Hypertension Hyperlipidemia GERD Non-Hodgkin lymphoma Basal cell carcinoma of the left neck Gout Migraine Rotator cuff tear Plan: This is a pleasant 83 years old female who presents with A. fib and UTI. Continue with Rocephin, follow-up urine culture. Continue with Eliquis and beta blockers. Cardiology consult . Check chest x-ray and call infectious disease consult as patient has low WBC and infection. Continue with Cardizem drip. Continue with Lasix twice daily Labs and medication were reviewed.. Continue same treatment. Continue with symptomatic treatment. Resume home medication. Monitor lytes and vitals. DVT and GI prophylaxis. Further recommendations of the clinical course of the patient DVT prophylaxis Eliquis GI Prophylaxis: Pepcid PT/OT: Pending Prognosis is guarded
--- NOTE | 2019-03-25 13:13 | XR ---
EXAMINATION TYPE: XR chest 1V DATE OF EXAM: 03/25/2019 COMPARISON: 02/22/2019 HISTORY: Failure TECHNIQUE: Single frontal view of the chest is obtained. FINDINGS: Subsegmental consolidation at both lung bases. There is poor inspiration. Central intersti tial pattern noted. Atherosclerotic change aorta. Diffuse osteopenia. Arthropathy of the shoulders. N o pneumothorax. IMPRESSION: Correlate for interstitial venous congestion versus interstitial pneumonitis.
--- NOTE | 2019-03-25 14:35 | P.CRDCN ---
History of Present Illness Consult date: 03/25/19 Reason for Consult (text): Afib RVR Chief complaint: A. fib RVR History of present illness: HISTORY OF PRESENT ILLNESS AND PLAN: This is a 83-year-old female with history of GERD, OA, hypertension, CHF, new atrial fibrillation diagnosed 01/2019 and recurrent non-Hodgkin's lymphoma with oral chemotherapy. Patient presents as a transfer from [facility]. Patient states she woke in the middle of the night and was feeling very weak, Pt had difficulty ambulating and was having significant palpitations. Patient presents to [facility] in atrial fibrillation with RVR, heart rate 150s. Patient states she has been taking Eliquis 2.5 mg twice daily and propanolol as directed. Patient states she has been feeling weak and has been dealing with constipation at home. Patient was hypotensive upon admission to ER. With hydration vital signs are now stable. EKG shows atrial fibrillation, heart rate 103. Pt continues IV Cardizem. Troponins negative 2. Patient has no current complaints of chest pain, chest pressure, shortness of breath or palpitations. Patient does have complaints of weakness and constipation. Urine analysis shows nitrates and leukocytes. Most recent echocardiogram in January 2019 shows preserved ejection fraction between 55 and 60% with pulmonary hypertension. SIGNIFICANT PAST MEDICAL HISTORY: GERD, OA, hypertension, CHF, new atrial fibrillation diagnosed 01/2019 and recurrent non-Hodgkin's lymphoma. PAST SURGICAL HISTORY: See list. EKG = Afib with RVR, 103. Troponins negative x 2 SIGNIFICANT LABORATORY VALUES: BUN 33, CR 1.85. Platelets low at 70. U/A borderline, positive for nitrate/leukocytes. Chest x-ray = 03/15 correlate for interstitial venous congestion versus interstitial pneumonitis. Most recent echo = EF 55-60%, moderate to severe PA. Pulmonary hypertension 61.47 mmHg REVIEW OF SYSTEMS: CONSTITUTIONAL: Denies fever. Denies chills. Complains of weakness EYES: Denies blurred vision. Denies blurred vision or vision changes. Denies eye pain. EARS, NOSE, MOUTH & THROAT: Denies headache. Denies sore throat. Denies ear pain Denies hemoptysis. CARDIOVASCULAR: Denies chest pain. Denies shortness of breath. Denies orthopnea. Denies PND. Denies palpitations. RESPIRATORY: Denies cough. Denies shortness of breath. GASTROINTESTINAL: Denies abdominal pain or distention. Denies diarrhea. Complains of constipation. Denies nausea. Denies vomiting. MUSCULOSKELETAL: Complains of myalgias. INTEGUMENTARY: Denies pruitis. Denies rash. ENDOCRINE: C/o fatigue. Denies weight change. Denies polydipsia. Denies polyurina Denies heat/cold intolerance. GENITOURINARY: Denies burning, hematuria or urgency with micturation. HEMATOLOGIC: Denies history of anemia. Denies bleeding. NEUROLOGIC: Denies numbness. Denies tingling. C/o weakness. PSYCHIATRIC: Denies anxiety. Denies depression. PHYSICAL EXAM: VITAL SIGNS: 149/47, atrial fibrillation heart rate 90. Afebrile. 99% on room air. GENERAL: Well developed, in no acute distress. HEENT: Head is atraumatic, normocephalic. Pupils are equal, round. Extra ocular movements intact. Mucous membranes moist. Neck supple. No JVD. No carotid bruit. No thyromegaly. LUNGS: Clear to auscultation. No wheezes, rales or rhonchi. No chest wall tenderness on palpation or with deep breathing. HEART: Irregular rate and rhythm, no rubs or gallops. S1 and S2 heard. No murmur. ABDOMEN: Abdominal exam, WNL. Bowel sounds x4 quads. Soft, non-tender, without masses, organomegaly, or abdominal aorta enlargement. EXTREMITIES/VASCULAR: Extremities have easily palpable radial, femoral, dorsalis pedis and posterior tibial pulses. No cyanosis, calf tenderness. No BLE edema. NEUROLOGIC: Patient is awake, alert and oriented x3. No focal neurologic abnormalities. FINAL IMPRESSION: 1. atrial fibrillation with RVR 2. hypertension 3. non-Hodgkin's lymphoma 4. urinary tract infection 5. pulmonary hypertension PLAN: STOP propanolol. Start metoprolol tartrate 50 mg twice daily. DC IV Cardizem with systolic BP lower than 90. Continue same all other medical/medication regime. Cautious IV fluid and blood pressure monitoring. Patient to echocardiogram. Heart healthy diet/Low sodium diet. Nurse Practitioner note has been reviewed by the Physician. Signing provider agrees with the documented findings, assessment and plan of care. Past Medical History Past Medical History: Cancer, GERD/Reflux, Hyperlipidemia, Hypertension, Osteoarthritis (OA) Additional Past Medical History / Comment(s): non-hodgkins lymphoma, basal cell carcinoma L neck, gout, shingles, hiatal hernia, migraines,foreign body L eye, rotatr cuff tear, fx coccyx 1971, stress test 02-04-18 takes merinol to help with appitite. History of Any Multi-Drug Resistant Organisms: None Reported Past Surgical History: Appendectomy, Cholecystectomy, Hysterectomy, Tubal Ligation Additional Past Surgical History / Comment(s): EGD 2014 r/t food items being stuck. multiple eye surgical procedures for cataract and laser. tumor removal eye orbit. Past Anesthesia/Blood Transfusion Reactions: No Reported Reaction Past Psychological History: No Psychological Hx Reported Smoking Status: Never smoker Past Alcohol Use History: None Reported Past Drug Use History: Marijuana - Past Family History Father History Unknown: Yes Additional Family Medical History / Comment(s): Ulcers, GIB Mother History Unknown: Yes Family Medical History: Hypertension Additional Family Medical History / Comment(s): Gout, demetia, gallbladder removal Medications and Allergies Home Medications Medication Instructions Recorded Confirmed Type Allopurinol [Zyloprim] 300 mg PO HS 04/22/18 03/25/19 History Montelukast [Singulair] 10 mg PO HS 04/22/18 03/25/19 History Omeprazole 20 mg PO DAILY 04/22/18 03/25/19 History Albuterol Nebulized [Ventolin 2.5 mg INHALATION RT-QID PRN 02/21/19 03/25/19 History Nebulized] Ascorbic Acid [Vitamin C] 500 mg PO BID 02/21/19 03/25/19 History Budesonide [Pulmicort] 0.5 mg INHALATION RT-BID PRN 02/21/19 03/25/19 History Clobetasol 0.05% Solution 1 applic TOPICAL DAILY 02/21/19 03/25/19 History Cranberry Fruit Extract [Cranberry] 500 mg PO HS 02/21/19 03/25/19 History Dronabinol [Marinol] 2.5 mg PO AC-BID PRN 02/21/19 03/25/19 History Famotidine [Pepcid] 20 mg PO DAILY 02/21/19 03/25/19 History Fluocinolone/Shower Cap 1 applic TOPICAL HS 02/21/19 03/25/19 History [Ezbpd-Yfotvwc-Se Scalp Oil] Furosemide [Lasix] 20 mg PO DAILY 02/21/19 03/25/19 History Ibrutinib [Imbruvica] 140 mg PO HS@2100 02/21/19 03/25/19 History L.acidoph,Paracasei, B.lactis 1 cap PO DAILY 02/21/19 03/25/19 History [Probiotic] Ondansetron [Zofran ODT] 4 mg PO Q8HR PRN 02/21/19 03/25/19 History Potassium Chloride ER [K-Dur 10] 20 meq PO HS 02/21/19 03/25/19 History Propranolol HCl [Inderal LA] 60 mg PO DIRECTED 02/21/19 03/25/19 History Apixaban [Eliquis] 2.5 mg PO BID #60 tablet 02/25/19 03/25/19 Rx Docusate [Colace] 100 mg PO DAILY PRN 03/25/19 03/25/19 History Allergies Allergy/AdvReac Type Severity Reaction Status Date / Time caffeine AdvReac PVCS Verified 03/25/19 10:05 codeine AdvReac Nausea & Verified 03/25/19 10:05 Vomiting levofloxacin [From Levaquin] AdvReac Nausea & Verified 03/25/19 10:05 Vomiting morphine AdvReac Nausea & Verified 03/25/19 10:05 Vomiting tramadol [From Ultram] AdvReac Nausea & Verified 03/25/19 10:05 Vomiting Physical Exam Vitals: Vital Signs Temp Pulse Pulse Resp BP Pulse Ox 03/25/19 12:57 89 16 102/74 99 03/25/19 12:44 83 16 92/55 98 03/25/19 10:29 83 16 110/52 99 03/25/19 07:14 90 16 149/47 99 03/25/19 07:01 87 03/25/19 06:00 98.6 F 89 18 94/57 98 03/25/19 05:30 70 16 82/58 03/25/19 03:37 63 12 84/53 03/25/19 03:20 67 16 99/44 03/25/19 03:10 71 12 97/40 03/25/19 03:00 77 16 95/62 03/25/19 02:30 112 H 16 85/58 03/25/19 02:00 111 H 12 101/60 03/25/19 01:30 114 H 16 80/69 03/25/19 01:21 123 H 20 103/72 99 03/25/19 01:00 112 H 19 100/61 97 03/25/19 00:49 128 H 19 120/74 98 03/25/19 00:15 118 H 19 112/73 98 03/24/19 23:45 108 H 19 101/78 99 03/24/19 23:00 121 H 20 100/68 97 03/24/19 22:51 115 H 03/24/19 22:45 115 H 20 94/62 98 03/24/19 22:38 98.6 F 121 H 20 105/52 98 Intake and Output 03/24/19 03/25/19 03/25/19 22:59 06:59 14:59 Intake Total 58.417 Balance 58.417 Intake: Intake, IV Titration 58.417 Amount Diltiazem 125 mg In 58.417 Sodium Chloride 0.9% 100 ml @ 5 MG/HR 5 mls/hr IV .Q24H [facility] Rx#:[id number] Other: Weight 62.142 kg Results 03/25/19 02:00 03/25/19 01:59 Cardiac Enzymes 03/25/19 03/25/19 03/25/19 Range/Units 01:59 01:59 07:43 AST 14 (14-36) U/L Troponin I 0.018 <0.012 (0.000-0.034) ng/mL Coagulation 03/25/19 Range/Units 02:00 PT 12.4 H (9.0-12.0) sec APTT 29.7 (22.0-30.0) sec CBC 03/25/19 Range/Units 02:00 WBC 2.0 L (3.8-10.6) k/uL RBC 4.06 (3.80-5.40) m/uL Hgb 12.8 (11.4-16.0) gm/dL Hct 39.2 (34.0-46.0) % Plt Count 70 L (150-450) k/uL Comprehensive Metabolic Panel 03/25/19 Range/Units 01:59 Sodium 137 (137-145) mmol/L Potassium 4.3 (3.5-5.1) mmol/L Chloride 106 (98-107) mmol/L Carbon Dioxide 26 (22-30) mmol/L BUN 33 H (7-17) mg/dL Creatinine 1.85 H (0.52-1.04) mg/dL Glucose 86 (74-99) mg/dL Calcium 8.3 L (8.4-10.2) mg/dL AST 14 (14-36) U/L ALT 16 (4-34) U/L Alkaline Phosphatase 53 (38-126) U/L Total Protein 4.9 L (6.3-8.2) g/dL Albumin 2.7 L (3.5-5.0) g/dL Current Medications Generic Name Dose Route Start Last Admin Trade Name Freq PRN Reason Stop Dose Admin Albuterol Sulfate 2.5 mg 03/25/19 02:38 Ventolin Nebulized INHALATION RT-QID PRN Shortness Of Breath Allopurinol 300 mg 03/25/19 21:00 Zyloprim PO HS EDILIA Apixaban 2.5 mg 03/25/19 09:00 03/25/19 09:47 Eliquis PO 2.5 mg BID EDILIA Administration Ascorbic Acid 500 mg 03/25/19 10:57 03/25/19 11:38 Vitamin C PO 500 mg BID EDILIA Administration Budesonide 0.5 mg 03/25/19 02:38 Pulmicort INHALATION RT-BID PRN Shortness Of Breath Clobetasol Propionate 1 applic 03/26/19 09:00 Temovate TOPICAL DAILY EDILIA Docusate Sodium 100 mg 03/25/19 10:50 Colace PO DAILY PRN Constipation Dronabinol 2.5 mg 03/25/19 10:50 Dronabinol PO AC-BID PRN APETITE/NAUSEA Famotidine 20 mg 03/25/19 10:56 03/25/19 11:38 Pepcid PO 20 mg DAILY EDILIA Administration Furosemide 40 mg 03/25/19 21:00 Lasix IV Q12HR EDILIA Diltiazem HCl 125 mg/ Sodium 125 mls @ 5 mls/hr 03/25/19 00:30 03/25/19 12:53 Chloride IV 2.5 mg/hr .Q24H EDILIA 2.5 mls/hr Infusion 5 MG/HR Sodium Chloride 1,000 mls @ 100 mls/hr 03/25/19 00:30 03/25/19 10:54 Saline 0.9% IV 100 mls/hr .Q10H EDILIA Administration Metoprolol Tartrate 50 mg 03/25/19 12:00 03/25/19 12:53 Lopressor PO 50 mg BID EDILIA Administration Montelukast Sodium 10 mg 03/25/19 21:00 Singulair PO HS EDILIA Naloxone HCl 0.2 mg 03/25/19 00:20 Narcan IV Q2M PRN Opioid Reversal Non-Formulary Medication 140 mg 03/25/19 22:00 Ibrutinib [Imbruvica] PO HS@2200 EDILIA Ondansetron HCl 4 mg 03/25/19 10:50 Zofran Odt PO Q8HR PRN Nausea And Vomiting Potassium Chloride 20 meq 03/25/19 21:00 K-Dur 20 PO HS [facility] Intake and Output 03/24/19 03/25/19 03/25/19 22:59 06:59 14:59 Intake Total 58.417 Balance 58.417 Intake: Intake, IV Titration 58.417 Amount Diltiazem 125 mg In 58.417 Sodium Chloride 0.9% 100 ml @ 5 MG/HR 5 mls/hr IV .Q24H [facility] Rx#:[id number] Other: Weight 62.142 kg 03/25/19 02:00 03/25/19 01:59
--- NOTE | 2019-03-25 17:00 | P.CONS ---
History of Present Illness - Reason for Consult Consult date: 03/25/19 Urinary tract infection and leukopenia Requesting physician: Godfrey E Sheet - Chief Complaint Generalized weakness 2 days - History of Present Illness Patient is 83 year female with a past medical history significant for non-Hodgkin lymphoma in this patient who did have history of hypertension and hyperlipidemia patient has been brought into the ER at [facility] with chief complaint of generalized weakness spell the patient's it has getting worse over the last few days patient had been getting weaker and weaker and unable to get up and around the patient denies high-grade fever or chills. Denies having any URI symptoms, denies having any chest pain or shortness with very minimal cough no nausea no vomiting no abdominal pain and no diarrhea with the symptoms and the patient was evaluated by the ER physician, on arrival to the ER the patient was afebrile she was noticed to be slightly leukopenic with a white count of 2.0 patient currently was elevated 1.85 the patient UA was positive she did received a dose of Rocephin and infectious disease was consulted for further diminishing her antibiotic therapy, the patient chest x- ray with concern for venous congestion versus interstitial pneumonitis Review of Systems Positive point has been mentioned in the HPI rest of the systems are negative Past Medical History Past Medical History: Cancer, GERD/Reflux, Hyperlipidemia, Hypertension, Osteoarthritis (OA) Additional Past Medical History / Comment(s): non-hodgkins lymphoma, basal cell carcinoma L neck, gout, shingles, hiatal hernia, migraines,foreign body L eye, rotatr cuff tear, fx coccyx 1971, stress test 02-04-18 takes merinol to help with appitite. History of Any Multi-Drug Resistant Organisms: None Reported Past Surgical History: Appendectomy, Cholecystectomy, Hysterectomy, Tubal Ligation Additional Past Surgical History / Comment(s): EGD 2014 r/t food items being stuck. multiple eye surgical procedures for cataract and laser. tumor removal eye orbit. Past Anesthesia/Blood Transfusion Reactions: No Reported Reaction Past Psychological History: No Psychological Hx Reported Smoking Status: Never smoker Past Alcohol Use History: None Reported Past Drug Use History: Marijuana - Past Family History Father History Unknown: Yes Additional Family Medical History / Comment(s): Ulcers, GIB Mother History Unknown: Yes Family Medical History: Hypertension Additional Family Medical History / Comment(s): Gout, demetia, gallbladder removal Medications and Allergies Home Medications Medication Instructions Recorded Confirmed Type Allopurinol [Zyloprim] 300 mg PO HS 04/22/18 03/25/19 History Montelukast [Singulair] 10 mg PO HS 04/22/18 03/25/19 History Omeprazole 20 mg PO DAILY 04/22/18 03/25/19 History Albuterol Nebulized [Ventolin 2.5 mg INHALATION RT-QID PRN 02/21/19 03/25/19 History Nebulized] Ascorbic Acid [Vitamin C] 500 mg PO BID 02/21/19 03/25/19 History Budesonide [Pulmicort] 0.5 mg INHALATION RT-BID PRN 02/21/19 03/25/19 History Clobetasol 0.05% Solution 1 applic TOPICAL DAILY 02/21/19 03/25/19 History Cranberry Fruit Extract [Cranberry] 500 mg PO HS 02/21/19 03/25/19 History Dronabinol [Marinol] 2.5 mg PO AC-BID PRN 02/21/19 03/25/19 History Famotidine [Pepcid] 20 mg PO DAILY 02/21/19 03/25/19 History Fluocinolone/Shower Cap 1 applic TOPICAL HS 02/21/19 03/25/19 History [Jewtp-Frylwcm-Qp Scalp Oil] Furosemide [Lasix] 20 mg PO DAILY 02/21/19 03/25/19 History Ibrutinib [Imbruvica] 140 mg PO HS@2100 02/21/19 03/25/19 History L.acidoph,Paracasei, B.lactis 1 cap PO DAILY 02/21/19 03/25/19 History [Probiotic] Ondansetron [Zofran ODT] 4 mg PO Q8HR PRN 02/21/19 03/25/19 History Potassium Chloride ER [K-Dur 10] 20 meq PO HS 02/21/19 03/25/19 History Propranolol HCl [Inderal LA] 60 mg PO DIRECTED 02/21/19 03/25/19 History Apixaban [Eliquis] 2.5 mg PO BID #60 tablet 02/25/19 03/25/19 Rx Docusate [Colace] 100 mg PO DAILY PRN 03/25/19 03/25/19 History Allergies Allergy/AdvReac Type Severity Reaction Status Date / Time caffeine AdvReac PVCS Verified 03/25/19 10:05 codeine AdvReac Nausea & Verified 03/25/19 10:05 Vomiting levofloxacin [From Levaquin] AdvReac Nausea & Verified 03/25/19 10:05 Vomiting morphine AdvReac Nausea & Verified 03/25/19 10:05 Vomiting tramadol [From Ultram] AdvReac Nausea & Verified 03/25/19 10:05 Vomiting Physical Exam Vitals: Vital Signs Temp Pulse Pulse Resp BP Pulse Ox 03/25/19 15:02 86 16 113/53 96 03/25/19 14:29 91/53 03/25/19 12:57 89 16 102/74 99 03/25/19 12:44 83 16 92/55 98 03/25/19 10:29 83 16 110/52 99 03/25/19 07:14 90 16 149/47 99 03/25/19 07:01 87 03/25/19 06:00 98.6 F 89 18 94/57 98 03/25/19 05:30 70 16 82/58 03/25/19 03:37 63 12 84/53 03/25/19 03:20 67 16 99/44 03/25/19 03:10 71 12 97/40 03/25/19 03:00 77 16 95/62 03/25/19 02:30 112 H 16 85/58 03/25/19 02:00 111 H 12 101/60 03/25/19 01:30 114 H 16 80/69 03/25/19 01:21 123 H 20 103/72 99 03/25/19 01:00 112 H 19 100/61 97 03/25/19 00:49 128 H 19 120/74 98 03/25/19 00:15 118 H 19 112/73 98 03/24/19 23:45 108 H 19 101/78 99 03/24/19 23:00 121 H 20 100/68 97 03/24/19 22:51 115 H 03/24/19 22:45 115 H 20 94/62 98 03/24/19 22:38 98.6 F 121 H 20 105/52 98 Intake and Output 03/25/19 03/25/19 03/25/19 06:59 14:59 22:59 Intake Total 58.417 Balance 58.417 Intake: Intake, IV Titration 58.417 Amount Diltiazem 125 mg In 58.417 Sodium Chloride 0.9% 100 ml @ 5 MG/HR 5 mls/hr IV .Q24H [facility] Rx#:[id number] GENERAL DESCRIPTION: Elderly female lying in bed, no distress. No tachypnea or accessory muscle of respiration use. HEENT: Shows Pallor , no scleral icterus. Oral mucous membrane is dry. No pharyngeal erythema or thrush NECK: Trachea central, no thyromegaly. LUNGS: Unlabored breathing. Decreased breath sound at the base. No wheeze or crackle. HEART: S1, S2, regular rate and rhythm. No loud murmur ABDOMEN: Soft, no tenderness , guarding or rigidity, no organomegaly EXTREMITIES: No edema of feet. SKIN: No rash, no masses palpable. NEUROLOGICAL: The patient is awake, alert, oriented x3, mood and affect normal. Results CBC & Chem 7: 03/25/19 02:00 03/25/19 01:59 Labs: Abnormal Lab Results - Last 24 Hours (Table) 03/25/19 03/25/19 03/25/19 Range/Units 01:00 01:59 02:00 WBC 2.0 L (3.8-10.6) k/uL RDW 17.1 H (11.5-15.5) % Plt Count 70 L (150-450) k/uL Neutrophils # (Manual) 1.20 L (1.3-7.7) k/uL Lymphocytes # (Manual) 0.46 L (1.0-4.8) k/uL PT (9.0-12.0) sec INR (<1.2) BUN 33 H (7-17) mg/dL Creatinine 1.85 H (0.52-1.04) mg/dL Calcium 8.3 L (8.4-10.2) mg/dL Creatine Kinase <20 L (30-135) U/L Total Protein 4.9 L (6.3-8.2) g/dL Albumin 2.7 L (3.5-5.0) g/dL Urine Appearance Cloudy H (Clear) Urine Protein Trace H (Negative) Urine Nitrite Positive H (Negative) Ur Leukocyte Esterase Trace H (Negative) Urine WBC Clumps Rare H (None) /hpf Amorphous Sediment Rare H (None) /hpf Urine Bacteria Occasional H (None) /hpf Urine Mucus Rare H (None) /hpf 03/25/19 Range/Units 02:00 WBC (3.8-10.6) k/uL RDW (11.5-15.5) % Plt Count (150-450) k/uL Neutrophils # (Manual) (1.3-7.7) k/uL Lymphocytes # (Manual) (1.0-4.8) k/uL PT 12.4 H (9.0-12.0) sec INR 1.2 H (<1.2) BUN (7-17) mg/dL Creatinine (0.52-1.04) mg/dL Calcium (8.4-10.2) mg/dL Creatine Kinase (30-135) U/L Total Protein (6.3-8.2) g/dL Albumin (3.5-5.0) g/dL Urine Appearance (Clear) Urine Protein (Negative) Urine Nitrite (Negative) Ur Leukocyte Esterase (Negative) Urine WBC Clumps (None) /hpf Amorphous Sediment (None) /hpf Urine Bacteria (None) /hpf Urine Mucus (None) /hpf Assessment and Plan Assessment: 1-patient admitted to hospital with generalized weakness which is likely multifactorial in this patient who did have a component of dehydration also with A. fib with RVR did have minimal urinary symptoms and a positive UA likely sy mptomatic urinary tract infection from enteric gram-negative pathogen 2-patient with Levaquin ALLERGIES limiting the number of antibiotic safety use (1) Acute UTI Current Visit: Yes Status: Acute Code(s): N39.0 - URINARY TRACT INFECTION, SITE NOT SPECIFIED SNOMED Code(s): 095116949 Plan: 1-Rocephin 1 g piggyback daily 2-gentle IV fluid We will follow on clinical condition and cultures to further adjust medication if needed Thank you for this consultation will follow this patient with you Time with Patient: Greater than 30
[2019-03-25] MEDS ORDERED: PROPRANOLOL LA 60 MG CAP.SA.24H PO SCH (21:00)
[2019-03-25] MEDS ORDERED: FUROSEMIDE 10 MG/ML 4 ML VIAL IV SCH (21:00)
[2019-03-25] MEDS ORDERED: FLUOCINOLONE TOPICAL SCH (21:00)
[2019-03-25] MEDS ORDERED: ASCORBIC ACID 500 MG TAB PO SCH (21:00)
[2019-03-25] MEDS: ALLOPURINOL 300 MG TAB PO SCH (21:30)
[2019-03-25] MEDS: MONTELUKAST 10 MG TAB PO SCH (21:32)
[2019-03-25] MEDS: POTASSIUM CHLORIDE ER 20 MEQ TAB.ER PO SCH (21:32)
[2019-03-26] MEDS: IBRUTINIB 140 MG PO SCH ×2 (01:29→20:42)
[2019-03-26] MEDS: DILTIAZEM 125 MG in SODIUM CHLORIDE 0.9% 100 ML IV SCH (01:57)
[2019-03-26] MEDS: FUROSEMIDE 10 MG/ML 4 ML VIAL IV SCH ×4 (01:59→18:28)
[2019-03-26 06:25] LABS: Anisocytosis Slight; Hypochromasia Slight; MCH 31.5 pg (25.0-35.0); MCHC 32.4 g/dL (31.0-37.0); MCV 97.2 fL (80.0-100.0); Macrocytosis Slight; Mean Platelet Volume 10.3; RDW 17.3 % (11.5-15.5); WBC 1.8 k/uL (3.8-10.6)
[2019-03-26 06:28] LABS: Platelet Count 79 k/uL (150-450)
[2019-03-26] MEDS: ALBUTEROL NEBULIZED 2.5 MG/3 ML INHALATION PRN ×2 (06:47→11:11)
[2019-03-26] MEDS: BUDESONIDE 0.5 MG/2 ML NEBU INHALATION PRN (06:47)
[2019-03-26 06:53] LABS: Band Neutrophils % 15 %; Eosinophils # (M) 0.29 k/uL (0-0.7); Lymphocytes # (M) 0.18 k/uL (1.0-4.8); Monocytes # (M) 0.27 k/uL (0-1.0); Neutrophils % (M) 44 %; Nucleated Red Blood Cells 0 /100 WBC (0-0); Total Cells Counted 200
[2019-03-26 06:54] LABS: Anisocytosis (M) Present; Ovalocytes Present; Poikilocytosis (M) Present
[2019-03-26 07:23] LABS: Calcium 8.4 mg/dL (8.4-10.2); Potassium 3.9 mmol/L (3.5-5.1)
[2019-03-26] MEDS ORDERED: FUROSEMIDE 20 MG TAB PO SCH (09:00)
[2019-03-26] MEDS ORDERED: FAMOTIDINE 20 MG TAB PO SCH (09:00)
--- NOTE | 2019-03-26 09:21 | P.PN ---
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 Patient presents because of running fever low-grade 420 of both normal as per daughter at bedside who lives with her. Also she was getting progressively weak. Her legs were getting more swollen On the presentation her heart rate was 121. Blood pressure stable. Chronic leukopenia and currently WBC is 2.0 similar to the month. Platelet 70, was 135 at early February. Creatinine is 1.8, close to baseline of 1.2-1.5. Urinalysis is suspicious for infection. EKG showing sinus tachycardia at 103. Emergency room patient was started on Rocephin, it 100 ml per hour and 500 ml bolus 03/26/2019 patient is awake and alert and she answers questions appropriately. She denies chest pain or dyspnea or urinary symptoms however she appears a bit more week. On examination patient has basal crepitation , she is currently on normal saline at 100 mL per hour lower to 50 mL per hour. Also patient is on Lasix 40 mg twice daily which we'll continue that, patient on Cardizem and Eliquis for her atrial fibrillation, patient with no suprapubic tenderness, she is on Rocephin and urine cultures pending. Infectious disease and Crohn's team are following the case closely. Patient is hemodynamically stable . Labs from today show a WBC of 1.8, platelet this is improving slightly to 79, creatinine improved to 1.49 which is close to baseline when going to stop IV fluids. Chest x-ray from this morning is still pending report, however it looks more chest congestion for me with possible atelectasis. However patient is not dyspneic. View of systems CONSTITUTIONAL: No fever, no malaise, no fatigue. HEENT: No recent visual problems or hearing problems. Denied any sore throat. CARDIOVASCULAR: No orthopnea, PND, no palpitations, no syncope. PULMONARY: No shortness of breath, no cough, no hemoptysis. GASTROINTESTINAL: No diarrhea, no nausea, no vomiting, no abdominal pain. Normoactive bowel sounds. NEUROLOGICAL: No headaches, no weakness, no numbness. HEMATOLOGICAL: Denies any bleeding or petechiae. GENITOURINARY: Denies any burning micturition, frequency, or urgency. MUSCULOSKELETAL/RHEUMATOLOGICAL: Denies any joint pain, swelling, or any muscle pain. ENDOCRINE: Denies any polyuria or polydipsia. Active Medications Generic Name Dose Route Start Last Admin Trade Name Freq PRN Reason Stop Dose Admin Albuterol Sulfate 2.5 mg 03/25/19 02:38 03/26/19 06:47 Ventolin Nebulized INHALATION 2.5 mg RT-QID PRN Administration Shortness Of Breath Allopurinol 300 mg 03/25/19 21:00 03/25/19 21:30 Zyloprim PO 300 mg HS EDIL[facility] Administration Apixaban 2.5 mg 03/25/19 09:00 03/25/19 21:30 Eliquis PO 2.5 mg BID EDILIA Administration Ascorbic Acid 500 mg 03/25/19 10:57 03/25/19 21:30 Vitamin C PO 500 mg BID EDILIA Administration Budesonide 0.5 mg 03/25/19 02:38 03/26/19 06:47 Pulmicort INHALATION 0.5 mg RT-BID PRN Administration Shortness Of Breath Clobetasol Propionate 1 applic 03/26/19 09:00 Temovate TOPICAL DAILY EDILIA Docusate Sodium 100 mg 03/25/19 10:50 Colace PO DAILY PRN Constipation Dronabinol 2.5 mg 03/25/19 10:50 Dronabinol PO AC-BID PRN APETITE/NAUSEA Famotidine 20 mg 03/25/19 10:56 03/25/19 11:38 Pepcid PO 20 mg DAILY EDILIA Administration Furosemide 40 mg 03/26/19 06:00 03/26/19 06:50 Lasix IV 40 mg Q12H [facility] Administration Diltiazem HCl 125 mg/ Sodium 125 mls @ 5 mls/hr 03/25/19 00:30 03/26/19 01:57 Chloride IV Not Given .Q24H [facility]IL[facility] 5 MG/HR Sodium Chloride 1,000 mls @ 50 mls/hr 03/25/19 00:30 03/25/19 21:30 Saline 0.9% IV 50 mls/hr .Q20H [facility] Administration Ceftriaxone Sodium 1 gm/ 50 mls @ 100 mls/hr 03/26/19 09:00 Sodium Chloride IVPB Q24HR [facility] Metoprolol Tartrate 50 mg 03/25/19 12:00 03/25/19 21:32 Lopressor PO 50 mg BID EDILIA Administration Montelukast Sodium 10 mg 03/25/19 21:00 03/25/19 21:32 Singulair PO 10 mg HS EDILIA Administration Naloxone HCl 0.2 mg 03/25/19 00:20 Narcan IV Q2M PRN Opioid Reversal Non-Formulary Medication 140 mg 03/25/19 22:00 03/26/19 01:29 Ibrutinib [Imbruvica] PO 140 mg HS@2200 EDIL[facility] Administration Ondansetron HCl 4 mg 03/25/19 10:50 Zofran Odt PO Q8HR PRN Nausea And Vomiting Potassium Chloride 20 meq 03/25/19 21:00 03/25/19 21:32 K-Dur 20 PO 20 meq HS EDILIA Administration Objective - Vital Signs Vital signs: Vital Signs Temp 98.2 F 03/26/19 00:00 Pulse 97 03/26/19 07:07 Resp 20 03/26/19 04:00 BP 103/85 03/26/19 04:00 Pulse Ox 97 03/26/19 04:00 Intake & Output 03/25/19 03/26/19 03/26/19 18:59 06:59 18:59 Intake Total 58.417 1000 Balance 58.417 1000 Weight 62.142 kg Intake: IV 1000 Sodium Chloride 0.9% 1, 1000 000 ml @ 100 mls/hr IV . Q10H [facility] Rx#:[id number] Intake, IV Titration 58.417 Amount Diltiazem 125 mg In 58.417 Sodium Chloride 0.9% 100 ml @ 5 MG/HR 5 mls/hr IV .Q24H [facility] Rx#:[id number] Other: Voiding Method Bedside Commode Bedside Commode # Voids 2 - Exam GENERAL: The patient is alert and oriented x3, not in any acute distress. Well d eveloped, well nourished. HEENT: Pupils are round and equally reacting to light. EOMI. No scleral icterus. No conjunctival pallor. Normocephalic, atraumatic. No pharyngeal erythema. No thyromegaly. CARDIOVASCULAR: S1 and S2 present. No murmurs, rubs, or gallops. PULMONARY: Chest is clear to auscultation, no wheezing or crackles. -ABDOMEN: Soft, suprapubic tenderness with no rebound tenderness, nondistended, normoactive bowel sounds. No palpable organomegaly. MUSCULOSKELETAL: No joint swelling or deformity. -EXTREMITIES: No cyanosis, clubbing,. Bilateral leg edema NEUROLOGICAL: Gross neurological examination did not reveal any focal deficits. SKIN: No rashes. No petechiae - Labs CBC & Chem 7: 03/26/19 06:01 03/26/19 06:01 Labs: Abnormal Lab Results - Last 24 Hours (Table) 03/26/19 03/26/19 Range/Units 06:01 06:01 WBC 1.8 L (3.8-10.6) k/uL RDW 17.3 H (11.5-15.5) % Plt Count 79 L (150-450) k/uL Neutrophils # (Manual) 1.00 L (1.3-7.7) k/uL Lymphocytes # (Manual) 0.18 L (1.0-4.8) k/uL Chloride 110 H (98-107) mmol/L Carbon Dioxide 21 L (22-30) mmol/L BUN 25 H (7-17) mg/dL Creatinine 1.49 H (0.52-1.04) mg/dL Microbiology - Last 24 Hours (Table) 03/25/19 03:47 Blood Culture - Preliminary Blood No Growth after 24 hours Assessment and Plan Assessment: History of atrial fibrillation, on Eliquis. comes now with A. fib and RVR chronic kidney disease with elements of acute kidney injury, improved and back to baseline Acute urinary tract infection Hypertension Hyperlipidemia GERD Non-Hodgkin lymphoma Basal cell carcinoma of the left neck Gout Migraine Rotator cuff tear Plan: This is a pleasant 83 years old female who presents with A. fib and UTI. Continue with Rocephin, follow-up urine culture. Continue with Eliquis and beta blockers. Cardiology consult . Check chest x-ray and call infectious disease consult as patient has low WBC and infection. Continue with Cardizem drip. Continue with Lasix twice daily Labs and medication were reviewed.. Continue same treatment. Continue with symptomatic treatment. Resume home medication. Monitor lytes and vitals. DVT and GI prophylaxis. Further recommendations of the clinical course of the patient DVT prophylaxis Eliquis GI Prophylaxis: Pepcid PT/OT: Pending Prognosis is guarded
--- NOTE | 2019-03-26 10:07 | XR ---
EXAMINATION TYPE: XR chest 1V DATE OF EXAM: 03/26/2019 COMPARISON: 03/25/2019 HISTORY: Abnormal x-ray TECHNIQUE: Single frontal view of the chest is obtained. FINDINGS: Bibasilar subsegmental consolidation stable. No pneumothorax. Heart size normal. Atheroscl erotic change aorta. Diffuse osteopenia and arthropathy of the shoulders. Interstitium is improved. S coliosis noted. IMPRESSION: 1. Stable bibasilar atelectasis or infiltrate. Slight improvement of the interstitium suggestive impr oving interstitial pneumonitis or venous congestion.
[2019-03-26] MEDS: FAMOTIDINE 20 MG TAB PO SCH (10:34)
[2019-03-26] MEDS: APIXABAN 2.5 MG TABLET PO SCH ×2 (10:34→20:42)
[2019-03-26] MEDS: METOPROLOL TARTRATE 50 MG TAB PO SCH (10:34)
--- NOTE | 2019-03-26 10:40 | P.PN ---
Subjective Progress Note Date: 03/26/19 This is an 83-year-old female with known history of GERD, osteoarthritis, hypertension, persistent atrial fibrillation, recurrent non- Hodgkin's lymphoma on oral chemotherapy, patient was transferred here from [facility]. She presented there with symptoms of feeling extremely weak, patient also had a significant palpitations. Her EKG performed at [facility] showed atrial fibrillation with a rapid ventricular response. Patient has been on Eliquis 2-1/2 mg as well as beta mary at home. Patient did receive IV hydration, was transferred here to [facility] for further evaluation and treatment. She was seen in consultation yesterday in the emergency room by Dr. Royer Guzman. Echocardiogram with Doppler study performed in January 2019 revealed a preserved ejection fraction of 55-60% with evidence of pulmonary hypertension. Patient was seen and examined this morning, complained of feeling mildly tired, but denied any palpitations, breathing was stable. Blood pressure 104/80 with a heart rate in the 80s to 90s this morning, 97% on room air. Blood cell count 1.8, hemoglobin 12.0, platelet count 79. Sodium 138, potassium 3.9, BUN 25 with a creatinine of 1.4. Patient's creatinine on presentation here was 1.8, it did improve with IV hydration. Continues to be on IV Cardizem 5 mg per hour, we will increase her dose of metoprolol and discontinue the Cardizem today. Objective - Vital Signs Vital signs: Vital Signs Temp 98.9 F 03/26/19 07:00 Pulse 97 03/26/19 07:07 Resp 18 03/26/19 07:00 BP 103/85 03/26/19 04:00 Pulse Ox 97 03/26/19 04:00 Intake & Output 03/25/19 03/26/19 03/26/19 18:59 06:59 18:59 Intake Total 58.417 1000 Balance 58.417 1000 Weight 62.142 kg Intake: IV 1000 Sodium Chloride 0.9% 1, 1000 000 ml @ 100 mls/hr IV . Q10H [facility] Rx#:[id number] Intake, IV Titration 58.417 Amount Diltiazem 125 mg In 58.417 Sodium Chloride 0.9% 100 ml @ 5 MG/HR 5 mls/hr IV .Q24H [facility] Rx#:[id number] Other: Voiding Method Bedside Commode Bedside Commode # Voids 2 - Exam PHYSICAL EXAMINATION: GENERAL: 83-year-old female in no acute distress at the time of my examination HEENT: Head is atraumatic, normocephalic. Pupils equal, round. Sclera anicteric. Conjunctiva are clear. Mucous membranes of the mouth are moist. Neck is supple. There is no elevated jugular venous pressure. No carotid bruit is heard. HEART EXAMINATION: Heart S1 and S2 irregularly irregular CHEST EXAMINATION: Lungs are clear to auscultation and precussion. No chest wall tenderness is noted on palpation or with deep breathing. ABDOMEN: Soft, nontender. Bowel sounds are heard. No organomegaly noted. EXTREMITIES: 2+ peripheral pulses with no evidence of peripheral edema and no calf tenderness noted. NEUROLOGIC patient is awake, alert and oriented 3 . . - Labs CBC & Chem 7: 03/26/19 06:01 03/26/19 06:01 Labs: Abnormal Lab Results - Last 24 Hours (Table) 03/26/19 03/26/19 Range/Units 06:01 06:01 WBC 1.8 L (3.8-10.6) k/uL RDW 17.3 H (11.5-15.5) % Plt Count 79 L (150-450) k/uL Neutrophils # (Manual) 1.00 L (1.3-7.7) k/uL Lymphocytes # (Manual) 0.18 L (1.0-4.8) k/uL Chloride 110 H (98-107) mmol/L Carbon Dioxide 21 L (22-30) mmol/L BUN 25 H (7-17) mg/dL Creatinine 1.49 H (0.52-1.04) mg/dL Microbiology - Last 24 Hours (Table) 03/25/19 03:47 Blood Culture - Preliminary Blood No Growth after 24 hours Assessment and Plan Plan: Assessment and plan #1 atrial fibrillation with rapid ventricular response, paroxysmal #2 hypertension #3 non-Hodgkin's lymphoma #4 UTI #5 pulmonary hypertension Plan We will continue Eliquis 2-1/2 mg one tablet by mouth twice a day, increase dose of metoprolol to 75 mg one tablet by mouth twice a day. DNP note has been reviewed, I agree with a documented findings and plan of care. Patient was seen and examined.
[2019-03-26] MEDS: CLOBETASOL PROP 0.05% CR 15GM TOPICAL SCH (11:44)
[2019-03-26] MEDS: ASCORBIC ACID 500 MG TAB PO SCH ×2 (11:44→20:42)
--- NOTE | 2019-03-26 12:17 | CDI ---
Documentation Clarification Form Date: 03/26/2019 12:03:47 PM From: Anuja Lechuga RN, CCDS Admit Date: 03/25/2019 12:23:00 AM Patient Name: Lila Green Visit Number: [id number] ATTENTION: The Clinical Documentation Specialists (CDI) and [facility] Coding Staff appreciate your assistance in clarifying documentation. Please respond to the clarification below the line at the bottom and electronically sign. The CDI & [facility] Coding staff will review the response and follow-up if needed. Please note: Queries are made part of the Legal Health Record. If you have any questions, please contact the author of this message via ITS. Dr. Pelayo History/Risk Factors: CKD, MARCELINO, Acute UTI, HTN Clinical Indicators: 03/25 H&P: "History of atrial fibrillation, on Eliquis. Comes now with A. fib and RVR chronic kidney disease with elements of acute kidney injury, improved and back to baseline." Current BUN: CR: 1.85/1.49 GFR: 02/23 Patients Baseline BUN/CR/GFR: 25/04. Treatment: IVF 500 cc fluid bolus followed by 100 cc/hr In order to capture the severity of condition, please clarify if the condition signifies: CKD Stage 1 (GFR > 90) CKD Stage 2 (GFR 60-89) CKD Stage 3 (GFR 30-59) CKD Stage 4 (GFR 15-29) CKD Stage 5 (GFR <15) ESRD Other, please specify Unable to determine (Last Revision: June 2017) CKD Stage 3 (GFR 30-59) MTDD
--- NOTE | 2019-03-26 12:43 | CDI ---
Documentation Clarification Form Date: 03/26/2019 12:20:52 PM From: Anuja Lechuga RN, CCDS Admit Date: 03/25/2019 12:23:00 AM Patient Name: Lila Green Visit Number: [id number] ATTENTION: The Clinical Documentation Specialists (CDI) and [facility] Coding Staff appreciate your assistance in clarifying documentation. Please respond to the clarification below the line at the bottom and electronically sign. The CDI & [facility] Coding staff will review the response and follow-up if needed. Please note: Queries are made part of the Legal Health Record. If you have any questions, please contact the author of this message via ITS. Dr. Pelayo CHF is documented in the Cardiology consult and requires further specificity. History/Risk Factors: Atrial fibrillation, CKD, acute UTI Clinical Indicators: 03/25 Cardiology Consult: "This is an 83-year-old female with history of GERD, OA, hypertension, CHF, new atrial fibrillation diagnosed 01/2019 and recurrent non-Hodgkin's lymphoma with oral chemotherapy." VS/Pulse OX: Temp 98.6, HR 121, RR 20, B/P 105/52, spo2 98% ra Echocardiogram Results: EF 55-60% 03/26 Chest X Ray: "Stable bibasilar atelectasis or infiltrate. Slight improvement of the interstitium suggestive improving interstitial pneumonitis or venous congestion." Treatment: Lasix 20 mg qd po daily Lasix 40 mg IV Q 12 hrs In your professional opinion, can you please clarify the acuity and type of CHF if known? Diastolic Heart Failure: Acute Chronic Acute on Chronic Unable to Determine Other, please specify (Last Revision: June 2017) chronic diastolic CHF MTDD
[2019-03-26] MEDS: ACETAMINOPHEN TAB 325 MG TAB PO PRN (14:42)
--- NOTE | 2019-03-26 17:59 | ECHOF ---
Referral Reason:Atrial fibrillation MEASUREMENTS -------- HEIGHT: 162.6 cm WEIGHT: 62.1 kg BP: 130/66 FINDINGS -------- Atrial fibrillation. Echo done 02/22/19: Limited Study for Afib. Overall left ventricular systolic function is low-normal with, an EF between 50 - 55 %. There is mild aortic valve sclerosis. Moderate mitral annular calcification present. There is no pericardial effusion. CONCLUSIONS -------- 1. Atrial fibrillation. 2. Echo done 02/22/19: Limited Study for Afib. 3. Overall left ventricular systolic function is low-normal with, an EF between 50 - 55 %. 4. There is mild aortic valve sclerosis. 5. Moderate mitral annular calcification present. 6. There is no pericardial effusion. SENIOR ADMINISTRATIVE SERVICES OFFICER: Cass Morales RDCS
[2019-03-26] MEDS: ALLOPURINOL 300 MG TAB PO SCH (20:42)
[2019-03-26] MEDS: POTASSIUM CHLORIDE ER 20 MEQ TAB.ER PO SCH (20:42)
[2019-03-26] MEDS: METOPROLOL TARTRATE 25 MG TAB PO SCH (20:42)
[2019-03-26] MEDS: MONTELUKAST 10 MG TAB PO SCH (20:42)
--- NOTE | 2019-03-26 22:29 | PN ---
PROGRESS NOTE DATE OF SERVICE: 03/26/2019. REASON FOR FOLLOWUP: Urinary tract infection. INTERVAL HISTORY: The patient did have a low-grade fever of 100.9 this afternoon. The patient has been feeling weak and tired. No energy and some hematuria has been noticed by the daughter. The patient denies having any chest pain, shortness of breath or cough. No nausea, vomiting or diarrhea. PHYSICAL EXAMINATION: Blood pressure is 97/55 with a pulse of 78, temperature 97.9. She is 96% on room air. General description is an elderly female lying in bed in no distress. Respiratory system: Unlabored breathing. Clear to auscultation anteriorly. Heart S1, S2. Regular rate and rhythm. ABDOMEN: Soft, no tenderness. Extremities: No edema of the feet. LABS: Hemoglobin is 21.8. BUN of 25, creatinine is 1.491. Blood culture has been negative so far. Urine culture requested, not done. DIAGNOSTIC IMPRESSION AND PLAN: Patient admitted to the hospital with generalized weakness in this patient who did have a low-grade fever and some urine symptoms likely secondary to symptomatic urinary tract infection. The patient is covered with Rocephin. Urine culture will be requested as well blood cultures in view of the fever and we will monitor clinical course closely. MMODL / IJN: [id number] /
[2019-03-26] MEDS: OIL TOPICAL SCH (23:38)
[2019-03-26] MEDS: FLUOCINOLONE ACETONIDE 0.01% TOPICAL SCH (23:38)
[2019-03-27 05:57] LABS: Anisocytosis Slight; HCT 35.3 % (34.0-46.0); HGB 11.1 gm/dL (11.4-16.0); MCH 30.2 pg (25.0-35.0); MCHC 31.5 g/dL (31.0-37.0); Macrocytosis Slight; Mean Platelet Volume 10.4; RBC 3.68 m/uL (3.80-5.40); RDW 17.4 % (11.5-15.5); WBC 1.9 k/uL (3.8-10.6)
[2019-03-27 06:06] LABS: Calcium 8.3 mg/dL (8.4-10.2); Potassium 3.6 mmol/L (3.5-5.1)
[2019-03-27 06:24] LABS: Platelet Count 72 k/uL (150-450)
[2019-03-27] MEDS: FUROSEMIDE 10 MG/ML 4 ML VIAL IV SCH ×2 (06:58→16:20)
[2019-03-27 07:06] LABS: Appearance,Urine Clear (Clear); Bilirubin,Urine Negative (Negative); Blood,Urine Negative (Negative); Color,Urine Light Yellow; Glucose,Urine (UA) Negative (Negative); Ketones,Urine Negative (Negative); Leukocyte Esterase,Urine Negative (Negative); Nitrite,Urine Negative (Negative); PH, Urine 5.5 (5.0-8.0); Protein,Urine Negative (Negative); Specific Gravity,Urine 1.009 (1.001-1.035); Urobilinogen,Urine <2.0 mg/dL (<2.0)
[2019-03-27 07:27] LABS: Band Neutrophils % 15 %; Eosinophils # (M) 0.23 k/uL (0-0.7); Lymphocytes # (M) 0.32 k/uL (1.0-4.8); Monocytes # (M) 0.11 k/uL (0-1.0); Neutrophils % (M) 51 %; Nucleated Red Blood Cells 0 /100 WBC (0-0); Ovalocytes Present; Polychromasia Present; Total Cells Counted 200
[2019-03-27] MEDS: METOPROLOL TARTRATE 25 MG TAB PO SCH ×2 (09:22→22:32)
[2019-03-27] MEDS: FAMOTIDINE 20 MG TAB PO SCH (09:22)
[2019-03-27] MEDS: ASCORBIC ACID 500 MG TAB PO SCH ×2 (09:22→22:31)
[2019-03-27] MEDS: APIXABAN 2.5 MG TABLET PO SCH ×2 (09:22→22:32)
[2019-03-27] MEDS: CLOBETASOL PROP 0.05% CR 15GM TOPICAL SCH (09:23)
--- NOTE | 2019-03-27 13:08 | P.PN ---
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 Patient presents because of running fever low-grade 420 of both normal as per daughter at bedside who lives with her. Also she was getting progressively weak. Her legs were getting more swollen On the presentation her heart rate was 121. Blood pressure stable. Chronic leukopenia and currently WBC is 2.0 similar to the month. Platelet 70, was 135 at early February. Creatinine is 1.8, close to baseline of 1.2-1.5. Urinalysis is suspicious for infection. EKG showing sinus tachycardia at 103. Emergency room patient was started on Rocephin, it 100 ml per hour and 500 ml bolus 03/26/2019 patient is awake and alert and she answers questions appropriately. She denies chest pain or dyspnea or urinary symptoms however she appears a bit more week. On examination patient has basal crepitation , she is currently on normal saline at 100 mL per hour lower to 50 mL per hour. Also patient is on Lasix 40 mg twice daily which we'll continue that, patient on Cardizem and Eliquis for her atrial fibrillation, patient with no suprapubic tenderness, she is on Rocephin and urine cultures pending. Infectious disease and Crohn's team are following the case closely. Patient is hemodynamically stable . Labs from today show a WBC of 1.8, platelet this is improving slightly to 79, creatinine improved to 1.49 which is close to baseline when going to stop IV fluids. Chest x-ray from this morning is still pending report, however it looks more chest congestion for me with possible atelectasis. However patient is not dyspneic. 03/27/2019 Patient is in the hospital for A. fib with RVR and urinary tract infection. She has acute kidney injury but that's improved since admission. Patient is sleeping in bed this morning, she does not have specific complaint but she looks a little bit disoriented. She is not sure if she is better or worse. Lopez has been stable however she had fever yesterday of 100.9. Currently heart rate is controlled after switching her propranolol to metoprolol 75 mg twice daily. Patient with leukopenia at 1.9, lipase stable at 72. Creatinine is stable at 1.4. Lactic acid came back to normal at 1.4. IV fluids were stopped and patient remains on Lasix. Blood pressure is 104/58.. Chest x-ray showing i mproving congestion. Physical therapy recommended home health care versus subacute rehab. best worker consult is placed Objective - Vital Signs Vital signs: Vital Signs Temp 98.6 F 03/27/19 12:00 Pulse 82 03/27/19 12:00 Resp 16 03/27/19 12:00 BP 104/58 03/27/19 12:00 Pulse Ox 96 03/27/19 12:00 Intake & Output 03/26/19 03/27/19 03/27/19 18:59 06:59 18:59 Intake Total 340 120 120 Output Total 1300 600 Balance 340 -1180 -480 Weight 64.4 kg Intake: Intake, IV Titration 100 Amount Sodium Chloride 0.9% 1, 100 000 ml @ 50 mls/hr IV . Q20H [facility] Rx#:[id number] Oral 240 120 120 Output: Urine 1300 600 Other: Voiding Method Bedside Commode Bedside Commode # Voids 2 1 1 # Bowel Movements 1 - Exam GENERAL: The patient is alert and oriented x3, not in any acute distress. Well developed, well nourished. HEENT: Pupils are round and equally reacting to light. EOMI. No scleral icterus. No conjunctival pallor. Normocephalic, atraumatic. No pharyngeal erythema. No thyromegaly. CARDIOVASCULAR: S1 and S2 present. No murmurs, rubs, or gallops. PULMONARY: Chest is clear to auscultation, no wheezing or crackles. -ABDOMEN: Soft, suprapubic tenderness with no rebound tenderness, nondistended, normoactive bowel sounds. No palpable organomegaly. MUSCULOSKELETAL: No joint swelling or deformity. -EXTREMITIES: No cyanosis, clubbing,. Bilateral leg edema NEUROLOGICAL: Gross neurological examination did not reveal any focal deficits. SKIN: No rashes. No petechiae - Labs CBC & Chem 7: 03/27/19 05:17 03/27/19 05:17 Labs: Abnormal Lab Results - Last 24 Hours (Table) 03/26/19 03/27/19 03/27/19 Range/Units 21:21 01:22 05:17 WBC 1.9 L (3.8-10.6) k/uL RBC 3.68 L (3.80-5.40) m/uL Hgb 11.1 L (11.4-16.0) gm/dL RDW 17.4 H (11.5-15.5) % Plt Count 72 L (150-450) k/uL Neutrophils # (Manual) 1.20 L (1.3-7.7) k/uL Lymphocytes # (Manual) 0.32 L (1.0-4.8) k/uL Chloride (98-107) mmol/L BUN (7-17) mg/dL Creatinine (0.52-1.04) mg/dL Plasma Lactic Acid Sarkis 2.6 H* 2.1 H* (0.7-2.0) mmol/L Calcium (8.4-10.2) mg/dL 03/27/19 Range/Units 05:17 WBC (3.8-10.6) k/uL RBC (3.80-5.40) m/uL Hgb (11.4-16.0) gm/dL RDW (11.5-15.5) % Plt Count (150-450) k/uL Neutrophils # (Manual) (1.3-7.7) k/uL Lymphocytes # (Manual) (1.0-4.8) k/uL Chloride 110 H (98-107) mmol/L BUN 24 H (7-17) mg/dL Creatinine 1.49 H (0.52-1.04) mg/dL Plasma Lactic Acid Sarkis (0.7-2.0) mmol/L Calcium 8.3 L (8.4-10.2) mg/dL Microbiology - Last 24 Hours (Table) 03/25/19 03:47 Blood Culture - Preliminary Blood No Growth after 48 hours Assessment and Plan Assessment: History of atrial fibrillation, on Eliquis. comes now with A. fib and RVR chronic kidney disease with elements of acute kidney injury, improved and back to baseline Acute urinary tract infection Hypertension Hyperlipidemia GERD Non-Hodgkin lymphoma Basal cell carcinoma of the left neck Gout Migraine Rotator cuff tear Plan: This is a pleasant 83 years old female who presents with A. fib and UTI. Continue with Rocephin, follow-up urine culture. Continue with Eliquis and beta blockers. Cardiology consult . Recommendations by ID team. Monitor heart rate Continue with Lasix twice daily Labs and medication were reviewed.. Continue same treatment. Continue with symptomatic treatment. Resume home medication. Monitor lytes and vitals. DVT and GI prophylaxis. Further recommendations of the clinical course of the patient DVT prophylaxis Eliquis GI Prophylaxis: Pepcid PT/OT: Pending Prognosis is guarded
--- NOTE | 2019-03-27 14:23 | P.PN ---
Subjective Progress Note Date: 03/27/19 This is an 83-year-old female with known history of GERD, osteoarthritis, hypertension, persistent atrial fibrillation, recurrent non- Hodgkin's lymphoma on oral chemotherapy, patient was transferred here from [facility]. She presented there with symptoms of feeling extremely weak, patient also had a significant palpitations. Her EKG performed at [facility] showed atrial fibrillation with a rapid ventricular response. Patient has been on Eliquis 2-1/2 mg as well as beta mary at home. Patient did receive IV hydration, was transferred here to [facility] for further evaluation and treatment. She was seen in consultation yesterday in the emergency room by Dr. Royer Guzman. Echocardiogram with Doppler study performed in January 2019 revealed a preserved ejection fraction of 55-60% with evidence of pulmonary hypertension. Patient was seen and examined this morning, complained of feeling mildly tired, but denied any palpitations, breathing was stable. Blood pressure 104/80 with a heart rate in the 80s to 90s this morning, 97% on room air. Blood cell count 1.8, hemoglobin 12.0, platelet count 79. Sodium 138, potassium 3.9, BUN 25 with a creatinine of 1.4. Patient's creatinine on presentation here was 1.8, it did improve with IV hydration. Continues to be on IV Cardizem 5 mg per hour, we will increase her dose of metoprolol and discontinue the Cardizem today. 03/27/2019 Patient was seen and examined this morning, overall doing well.blood pressure 10 4/58 with a heart rate in the 80s, 96% on room air.echocardiogram with Doppler study was performed which revealed a normal left ventricular systolic function Objective - Vital Signs Vital signs: Vital Signs Temp 98.6 F 03/27/19 12:00 Pulse 82 03/27/19 12:00 Resp 16 03/27/19 12:00 BP 104/58 03/27/19 12:00 Pulse Ox 96 03/27/19 12:00 Intake & Output 03/26/19 03/27/19 03/27/19 18:59 06:59 18:59 Intake Total 340 120 360 Output Total 1300 600 Balance 340 -1180 -240 Weight 64.4 kg Intake: Intake, IV Titration 100 Amount Sodium Chloride 0.9% 1, 100 000 ml @ 50 mls/hr IV . Q20H [facility] Rx#:[id number] Oral 240 120 360 Output: Urine 1300 600 Other: Voiding Method Bedside Commode Bedside Commode # Voids 2 1 1 # Bowel Movements 1 - Exam PHYSICAL EXAMINATION: GENERAL: 83-year-old female in no acute distress at the time of my examination HEENT: Head is atraumatic, normocephalic. Pupils equal, round. Sclera anicteric. Conjunctiva are clear. Mucous membranes of the mouth are moist. Neck is supple. There is no elevated jugular venous pressure. No carotid bruit is heard. HEART EXAMINATION: Heart S1 and S2 irregularly irregular CHEST EXAMINATION: Lungs are clear to auscultation and precussion. No chest wall tenderness is noted on palpation or with deep breathing. ABDOMEN: Soft, nontender. Bowel sounds are heard. No organomegaly noted. EXTREMITIES: 2+ peripheral pulses with no evidence of peripheral edema and no calf tenderness noted. NEUROLOGIC patient is awake, alert and oriented 3 . . - Labs CBC & Chem 7: 03/27/19 05:17 03/27/19 05:17 Labs: Abnormal Lab Results - Last 24 Hours (Table) 03/26/19 03/27/19 03/27/19 Range/Units 21:21 01:22 05:17 WBC 1.9 L (3.8-10.6) k/uL RBC 3.68 L (3.80-5.40) m/uL Hgb 11.1 L (11.4-16.0) gm/dL RDW 17.4 H (11.5-15.5) % Plt Count 72 L (150-450) k/uL Neutrophils # (Manual) 1.20 L (1.3-7.7) k/uL Lymphocytes # (Manual) 0.32 L (1.0-4.8) k/uL Chloride (98-107) mmol/L BUN (7-17) mg/dL Creatinine (0.52-1.04) mg/dL Plasma Lactic Acid Sarkis 2.6 H* 2.1 H* (0.7-2.0) mmol/L Calcium (8.4-10.2) mg/dL 03/27/19 Range/Units 05:17 WBC (3.8-10.6) k/uL RBC (3.80-5.40) m/uL Hgb (11.4-16.0) gm/dL RDW (11.5-15.5) % Plt Count (150-450) k/uL Neutrophils # (Manual) (1.3-7.7) k/uL Lymphocytes # (Manual) (1.0-4.8) k/uL Chloride 110 H (98-107) mmol/L BUN 24 H (7-17) mg/dL Creatinine 1.49 H (0.52-1.04) mg/dL Plasma Lactic Acid Sarkis (0.7-2.0) mmol/L Calcium 8.3 L (8.4-10.2) mg/dL Microbiology - Last 24 Hours (Table) 03/25/19 03:47 Blood Culture - Preliminary Blood No Growth after 48 hours Assessment and Plan Plan: Assessment and plan #1 atrial fibrillation with rapid ventricular response, paroxysmal #2 hypertension #3 non-Hodgkin's lymphoma #4 UTI #5 pulmonary hypertension Plan We will continue Eliquis 2-1/2 mg one tablet by mouth twice a day, continue metoprolol to 75 mg one tablet by mouth twice a day. DNP note has been reviewed, I agree with a documented findings and plan of care. Patient was seen and examined.
[2019-03-27] MEDS: ALBUTEROL NEBULIZED 2.5 MG/3 ML INHALATION PRN ×2 (16:07→19:37)
[2019-03-27] MEDS: POTASSIUM CHLORIDE ER 20 MEQ TAB.ER PO SCH (22:31)
[2019-03-27] MEDS: IBRUTINIB 140 MG PO SCH (22:32)
[2019-03-27] MEDS: OIL TOPICAL SCH (22:32)
[2019-03-27] MEDS: ALLOPURINOL 300 MG TAB PO SCH (22:32)
[2019-03-27] MEDS: FLUOCINOLONE ACETONIDE 0.01% TOPICAL SCH (22:32)
[2019-03-27] MEDS: MONTELUKAST 10 MG TAB PO SCH (22:32)
--- NOTE | 2019-03-27 23:06 | PN ---
PROGRESS NOTE DATE OF SERVICE: 03/27/2019 REASON FOR FOLLOWUP: Fever and a question of UTI/pneumonia. INTERVAL HISTORY: The patient is currently afebrile. She has been breathing more comfortably. The patient did have a cough, not bringing up any sputum. No chest pain. No nausea, no vomiting, no abdominal pain or diarrhea. PHYSICAL EXAMINATION: Blood pressure 115/53 with a pulse of 99, temperature 99. She is 92% on room air. General description is a middle-aged female lying in bed in no distress. RESPIRATORY SYSTEM: Unlabored breathing with decreased breath sounds at the base. No wheeze. HEART: S1, S2. Regular rate and rhythm. ABDOMEN: Soft. No tenderness. LABS: BUN of 24, creatinine 1.49, hemoglobin 11.1, white 1.9. Her repeat urine is negative. DIAGNOSTIC IMPRESSION AND PLAN: Patient admitted to hospital with generalized weakness and lethargy and low fever with concern for possible urinary tract infection. Urine repeat is negative. Chest x-ray shows some basilar infiltrate with a question of possible pneumonia. Patient is currently covered with Rocephin with resolution of fever; to continue while monitoring her clinical course closely. MMODL / IJN: [id number] /
[2019-03-28] MEDS: FUROSEMIDE 10 MG/ML 4 ML VIAL IV SCH ×2 (06:57→17:42)
[2019-03-28] MEDS: ACETAMINOPHEN TAB 325 MG TAB PO PRN ×3 (06:58→20:45)
[2019-03-28] MEDS: METOPROLOL TARTRATE 25 MG TAB PO SCH ×2 (08:56→20:45)
[2019-03-28] MEDS: FAMOTIDINE 20 MG TAB PO SCH (08:56)
[2019-03-28] MEDS: APIXABAN 2.5 MG TABLET PO SCH ×2 (08:56→20:45)
[2019-03-28] MEDS: ASCORBIC ACID 500 MG TAB PO SCH ×2 (08:56→20:45)
[2019-03-28] MEDS: ALBUTEROL NEBULIZED 2.5 MG/3 ML INHALATION PRN (09:37)
[2019-03-28] MEDS: BUDESONIDE 0.5 MG/2 ML NEBU INHALATION PRN (09:37)
[2019-03-28] MEDS: CLOBETASOL PROP 0.05% CR 15GM TOPICAL SCH (17:41)
[2019-03-28] MEDS: MONTELUKAST 10 MG TAB PO SCH (20:45)
[2019-03-28] MEDS: ALLOPURINOL 300 MG TAB PO SCH (20:45)
[2019-03-28] MEDS: POTASSIUM CHLORIDE ER 20 MEQ TAB.ER PO SCH (20:45)
[2019-03-28] MEDS: IBRUTINIB 140 MG PO SCH (20:46)
[2019-03-28] MEDS: OIL TOPICAL SCH (20:47)
[2019-03-28] MEDS: FLUOCINOLONE ACETONIDE 0.01% TOPICAL SCH (20:47)
--- NOTE | 2019-03-28 22:27 | PN ---
PROGRESS NOTE DATE OF SERVICE: 03/28/2019 REASON FOR FOLLOWUP: Pneumonia and possible UTI. INTERVAL HISTORY: The patient is currently afebrile. Patient complaining of migraine headache today. The patient denies having any chest pain or shortness of breath. She did have some occasional cough, not bringing up any sputum. No nausea, vomiting. No abdominal pain, no diarrhea. PHYSICAL EXAMINATION: Blood pressure 100/59 with a pulse of 77, temperature 98.4. She is 99% on room air. General description is an elderly female lying in bed in no distress. Respiratory system: Unlabored breathing. Decreased breath sounds at the bases. No wheeze. Heart S1, S2. Regular rate and rhythm. Abdomen soft, no tenderness. Extremities: No edema of the feet. LABS: Blood cultures have been negative. Repeat urine is negative. DIAGNOSTIC IMPRESSION AND PLAN: Patient admitted to the hospital with generalized weakness. This patient initially notable for UTI though repeat UA is negative. Blood cultures have been negative. Chest x-ray shows some bibasilar infiltrates, possibly community-acquired pneumonia. Patient has been on Rocephin which will be continued with the plan is to finish therapy with oral ( ) and monitor clinical course closely. MMODL / IJN: [id number] /
[2019-03-29] MEDS: ACETAMINOPHEN TAB 325 MG TAB PO PRN (03:18)
[2019-03-29] MEDS: FUROSEMIDE 10 MG/ML 4 ML VIAL IV SCH (05:58)
--- NOTE | 2019-03-29 06:01 | PN ---
PROGRESS NOTE DATE OF SERVICE: 03/28/2019 This 83-year-old woman who was admitted with atrial fibrillation ablation has been closely monitored. Patient also had chronic kidney disease also. No chest pain or palpitations. No fever. PHYSICAL EXAMINATION: On exam, alert and oriented x2. Pulse is 94, blood pressure 97/66, respirations 16, temperature 98.2, pulse ox 97% on room air. HEENT: Conjunctivae normal. NECK: No jugular venous distention. CARDIOVASCULAR: S1, S2, muffled. RESPIRATORY: Breath sounds diminished at the bases. A few scattered rhonchi and crackles. ABDOMEN: Soft, nontender. LEGS: No edema. No swelling. NERVOUS SYSTEM: No focal deficits. LABS: WBC 1.9, hemoglobin 11.1, platelets are 72. Other labs are noted. ASSESSMENT: 1. Atrial fibrillation with rapid ventricular rate. 2. Chronic kidney disease with element of acute kidney injury, possible acute tubular necrosis, improved at the baseline 3. Acute urinary tract infection, present on admission. 4. Mild pancytopenia of undetermined etiology. 5. Hypertension. 6. Hyperlipidemia. 7. Gastroesophageal reflux disease. 8. Non-Hodgkin's lymphoma. 9. Basal cell carcinoma of the left neck. 10.History of gout. 11.History of migraines. 12.History of rotator cuff tear. RECOMMENDATIONS AND DISCUSSION: Recommend to continue current medications, continue with monitoring and symptomatic treatment. Otherwise at this time I recommend continue with broad-spectrum IV antibiotics, Eliquis. Dr. Fox has been consulted. The cultures have been negative so far. Guarded prognosis because of multiple complex medical issues. Further recommendations to follow. Will continue to monitor. See orders for details. MMODL / IJN: [id number] / MTDD
[2019-03-29] MEDS: FAMOTIDINE 20 MG TAB PO SCH (08:40)
[2019-03-29] MEDS: APIXABAN 2.5 MG TABLET PO SCH (08:40)
[2019-03-29] MEDS: ASCORBIC ACID 500 MG TAB PO SCH (08:40)
[2019-03-29] MEDS: CLOBETASOL PROP 0.05% CR 15GM TOPICAL SCH (08:41)
[2019-03-29] MEDS: METOPROLOL TARTRATE 25 MG TAB PO SCH (08:43)
[2019-03-29 11:07] VITALS: BP 105/56; PULSE 92; RESP 30; TEMP 98.3
--- NOTE | 2019-03-29 14:24 | P.PN ---
Subjective Progress Note Date: 03/29/19 This is an 83-year-old female with known history of GERD, osteoarthritis, hypertension, persistent atrial fibrillation, recurrent non- Hodgkin's lymphoma on oral chemotherapy, patient was transferred here from [facility]. She presented there with symptoms of feeling extremely weak, patient also had a significant palpitations. Her EKG performed at [facility] showed atrial fibrillation with a rapid ventricular response. Patient has been on Eliquis 2-1/2 mg as well as beta mary at home. Patient did receive IV hydration, was transferred here to [facility] for further evaluation and treatment. She was seen in consultation yesterday in the emergency room by Dr. Royer Guzman. Echocardiogram with Doppler study performed in January 2019 revealed a preserved ejection fraction of 55-60% with evidence of pulmonary hypertension. Patient was seen and examined this morning, complained of feeling mildly tired, but denied any palpitations, breathing was stable. Blood pressure 104/80 with a heart rate in the 80s to 90s this morning, 97% on room air. Blood cell count 1.8, hemoglobin 12.0, platelet count 79. Sodium 138, potassium 3.9, BUN 25 with a creatinine of 1.4. Patient's creatinine on presentation here was 1.8, it did improve with IV hydration. Continues to be on IV Cardizem 5 mg per hour, we will increase her dose of metoprolol and discontinue the Cardizem today. 03/27/2019 Patient was seen and examined this morning, overall doing well.blood pressure 10 4/58 with a heart rate in the 80s, 96% on room air.echocardiogram with Doppler study was performed which revealed a normal left ventricular systolic function 03/29/2019 Patient seen and examined this morning, overall doing well. Hemodynamically stable. Blood pressure 105/56 with a heart rate in the 90s, 96% on Objective - Vital Signs Vital signs: Vital Signs Temp 98.3 F 03/29/19 11:06 Pulse 92 03/29/19 11:06 Resp 30 H 03/29/19 11:06 BP 105/56 03/29/19 11:06 Pulse Ox 96 03/29/19 11:06 Intake & Output 03/28/19 03/29/19 03/29/19 18:59 06:59 18:59 Intake Total 280 240 170 Output Total 300 800 800 Balance -20 -560 -317 Weight 62.3 kg Intake: IV 60 Invasive Line 2 60 Intake, IV Titration 50 Amount cefTRIAXone 1 gm In 50 Sodium Chloride 0.9% 50 ml @ 100 mls/hr IVPB Q24HR [facility] Rx#:[id number] Oral 220 240 120 Output: Urine 300 800 800 Other: Voiding Method Bedside Commode Toilet Toilet # Voids 6 1 1 # Bowel Movements 3 1 - Exam PHYSICAL EXAMINATION: GENERAL: 83-year-old female in no acute distress at the time of my examination HEENT: Head is atraumatic, normocephalic. Pupils equal, round. Sclera anicteric. Conjunctiva are clear. Mucous membranes of the mouth are moist. Neck is supple. There is no elevated jugular venous pressure. No carotid bruit is heard. HEART EXAMINATION: Heart S1 and S2 irregularly irregular CHEST EXAMINATION: Lungs are clear to auscultation and precussion. No chest wall tenderness is noted on palpation or with deep breathing. ABDOMEN: Soft, nontender. Bowel sounds are heard. No organomegaly noted. EXTREMITIES: 2+ peripheral pulses with no evidence of peripheral edema and no calf tenderness noted. NEUROLOGIC patient is awake, alert and oriented 3 . . - Labs CBC & Chem 7: 03/27/19 05:17 03/27/19 05:17 Labs: Microbiology - Last 24 Hours (Table) 03/25/19 03:47 Blood Culture - Preliminary Blood No Growth after 96 hours 03/26/19 21:21 Blood Culture - Preliminary Blood No Growth after 48 hours Assessment and Plan Plan: Assessment and plan #1 atrial fibrillation with rapid ventricular response, paroxysmal #2 hypertension #3 non-Hodgkin's lymphoma #4 UTI #5 pulmonary hypertension Plan We will continue Eliquis 2-1/2 mg one tablet by mouth twice a day, continue metoprolol to 75 mg one tablet by mouth twice a day. DNP note has been reviewed, I agree with a documented findings and plan of care. Patient was seen and examined.
--- NOTE | 2019-03-29 15:18 | XR ---
EXAMINATION TYPE: XR chest 2V DATE OF EXAM: 03/29/2019 COMPARISON: 03/26/2019 TECHNIQUE: PA and lateral views submitted. HISTORY: Shortness of breath FINDINGS: Atherosclerotic change aorta. Bilateral pleural effusions and consolidation. Interstitial prominence noted. Arthropathy of the shoulders. Diffuse osteopenia. IMPRESSION: 1. Mild CHF.
--- NOTE | 2019-03-29 15:30 | PN ---
PROGRESS NOTE DATE OF SERVICE: 03/29/2019 REASON FOR FOLLOWUP: UTI and possible pneumonia. INTERVAL HISTORY: The patient is currently afebrile. The patient is breathing comfortably. The patient denies having any chest pain or any cough. No nausea, no vomiting, no abdominal pain, no diarrhea. PHYSICAL EXAMINATION: Blood pressure 105/56, pulse of 92, temperature 98.3, she is 96% on room air. General description is an elderly female, up in the bed in no distress. RESPIRATORY SYSTEM: Unlabored breathing. Decreased breath sounds at the base, no wheeze. HEART: S1, S2. Regular rate and rhythm. ABDOMEN: Soft, no tenderness. LABS: No new labs have been obtained today. Blood culture has been negative. DIAGNOSTIC IMPRESSION AND PLAN: Patient admitted to the hospital with low-grade fever in this patient who did have a CT, positive UA, subsequently urine cultures were negative. Chest x-ray also shows some infiltrate, consider possible pneumonia. Overall improvement with Rocephin, finishing therapy with oral Ceftin. Prescription sent to the pharmacy, continue supportive care. MMODL / IJN: [id number] /
--- NOTE | 2019-03-30 09:33 | DS ---
DISCHARGE SUMMARY DATE OF SERVICE: 03/29/2019 FINAL DIAGNOSES: 1. Atrial fibrillation with rapid ventricular rate, present on admission. 2. Chronic kidney disease, element of acute kidney injury, possible acute tubular necrosis, improved at the baseline. 3. Acute urinary tract infection, present on admission. 4. Mild pancytopenia, undetermined etiology. 5. Hypertension. 6. Hyperlipidemia. 7. Gastroesophageal reflux disease. 8. Non-Hodgkin's lymphoma. 9. Basal cell carcinoma of left neck. 10.History of gout. 11.History of migraine. 12.History of rotator cuff tear. 13.Mild congestive heart failure acute exacerbation with acute on chronic diastolic dysfunction. DISCHARGE DISPOSITION: The patient will be discharged in stable condition with guarded prognosis. Cardiology cleared the patient for discharge. HISTORY OF PRESENT ILLNESS: This 83-year-old woman with a past medical history of multiple medical problems being followed by Dr. Moise Dill in the outpatient setting was admitted with multiple medical issues. The patient was monitored closely. The creatinine was stabilized at 1.49. Lactic acid improved. Multiple consultants saw the patient. Patient was also given empiric antibiotic treatment. Cultures are negative so far. White count 1.9, hemoglobin 11.1, platelets 72 of undetermined etiology. Recommend close outpatient followup. On exam, vitals are stable. CARDIOVASCULAR: S1, S2 muffled. ABDOMEN: Soft. NERVOUS SYSTEM: No focal deficits. DISCHARGE ADVICE: 1. Diet is cardiac. 2. Activity limited until followup. 3. Follow up with Dr. Moise Dill in 2 to 3 days. 4. Follow up with adzing and boring machine feeder as recommended. Medications are: 1. Clobetasol topical as before. 2. Colace 100 mg p.o. daily. 3. Cranberry at bedtime. 4. Fluocinolone 1 application daily. 5. Ibrutinib 140 mg at bedtime. 6. K-Dur 20 mEq at bedtime. 7. Marinol 2.5 mg a.c. b.i.d. 8. Omeprazole 20 mg daily. 9. Pepcid 20 mg p.o. daily. 10.Probiotic 1 p.o. daily. 11.Pulmicort 0.5 mg b.i.d. 12.Singulair 10 mg at bedtime. 13.Ventolin 2.5 q.i.d. and p.r.n. 14.Vitamin C 500 mg p.o. b.i.d. 15.Ondansetron 4 mg p.o. q.8 p.r.n. 16.Zyloprim 300 mg at bedtime. 17.Ceftin 250 mg p.o. b.i.d. for 5 days. 18.Eliquis 2.5 mg p.o. b.i.d. 19.Lasix 40 mg p.o. daily. 20.Lopressor 75 mg p.o. b.i.d. Once again the patient will be discharged in stable condition with guarded prognosis. Total time 35 minutes. MMVERNELLL / MACKENZIEN: [id number] /
== END 2019-03-29 16:05 | disposition home or self-care (01) | DRG 308 ==
LOC: EC 22:29 → 3SCARD 03-25 00:23
PROVIDERS: ADMIT Hospitalist; ATTEND Hospitalist
DX: I48.19 Other persistent atrial fibrillation (principal); I50.33 Acute on chronic diastolic (congestive) heart failure; J18.9 Pneumonia, unspecified organism; D61.818 Other pancytopenia; I13.0 Hypertensive heart and chronic kidney disease with heart failure and stage 1 through stage 4 chronic kidney disease, or unspecified chronic kidney disease; N17.9 Acute kidney failure, unspecified; N39.0 Urinary tract infection, site not specified; E78.5 Hyperlipidemia, unspecified; I27.20 Pulmonary hypertension, unspecified; I95.9 Hypotension, unspecified; E86.0 Dehydration; N18.9 Chronic kidney disease, unspecified; G43.909 Migraine, unspecified, not intractable, without status migrainosus; K21.9 Gastro-esophageal reflux disease without esophagitis; K59.00 Constipation, unspecified; M10.9 Gout, unspecified; K44.9 Diaphragmatic hernia without obstruction or gangrene; M19.90 Unspecified osteoarthritis, unspecified site; Z85.72 Personal history of non-Hodgkin lymphomas; Z79.01 Long term (current) use of anticoagulants; Z79.899 Other long term (current) drug therapy; Z85.828 Personal history of other malignant neoplasm of skin; Z90.710 Acquired absence of both cervix and uterus; Z88.6 Allergy status to analgesic agent; Z88.1 Allergy status to other antibiotic agents; Z88.5 Allergy status to narcotic agent; Z91.018 Allergy to other foods; Z90.49 Acquired absence of other specified parts of digestive tract; Z98.51 Tubal ligation status; Z98.49 Cataract extraction status, unspecified eye; Z96.1 Presence of intraocular lens; Z82.49 Family history of ischemic heart disease and other diseases of the circulatory system; Z82.0 Family history of epilepsy and other diseases of the nervous system; Z82.69 Family history of other diseases of the musculoskeletal system and connective tissue
CPT/HCPCS: 71045; 71046; 80048; 80053; 81001; 81003; 82550; 83605; 83735; 84443; 84484; 85025; 85610; 85730; 87040; 93308; 94640; 96365; 96366; 96368; 96375; 96376; 99285